=== PATIENT | male | born 1950 | race Caucasian/White ===

== ENCOUNTER 2020-08-16 19:05 | Emergency (ER) | payer MEDICARE, SELFPAY ==
[2020-08-16] VITALS (19 sets, daily range): BP systolic 156–176; BP diastolic 89–111; PULSE 80–97; RESP 13–23; TEMP 36.6; O2SAT 93–99; BMI 34.9
--- NOTE | 2020-08-16 19:39 | XRR_ITS ---
PROCEDURE INFORMATION: Exam: XR Chest, 1 View Exam date and time: 08/16/2020 7:44 PM Age: 70 years old Clinical indication: Chest pain; Type not specified; Patient HX: Chest pressure for 2 hours; Additional info: Cp TECHNIQUE: Imaging protocol: XR of the chest Views: 1 view. COMPARISON: No relevant prior studies available. FINDINGS: Lungs: Lungs are well aerated without a focal area of consolidation. Pleural spaces: Unremarkable. No pleural effusion. No pneumothorax. Heart/Mediastinum: The cardiac silhouette appears enlarged, some of which is magnification related to the AP projection. Bones/joints: Unremarkable. XR/XR chest 1V portable 40901 IMPRESSION: Lungs are well aerated without a focal area of consolidation.
--- NOTE | 2020-08-16 19:45 | W.ED.CHESTPA ---
HPI - Chest Pain General: Chief Complaint: Chest Pain Stated Complaint: heart palpitations Time Seen by Provider: 08/16/20 19:20 History of Present Illness: HPI narrative: Patient is a 70-year-old male with past medical history hypertension who comes to the ER for about 2 hours of mid to lower chest pressure. He said it comes and goes and he had associated occasional palpitations with this pressure. He does have the pressure in the ER right now. He took a baby aspirin this morning and 2 full-strength aspirins at home during the day. No previous cardiac history. MD complaint: chest pain Timing of current episode: episodic Prior episodes: No Onset: during rest and during exertion Pain location: substernal Pain radiation: none Severity: moderate Quality: heaviness Relieving factors: nothing Exacerbating factors: nothing Associated symptoms: Reports no associated symptoms; Deny abdominal pain, dyspnea or palpitations Review of Systems General: Reports: 10 or more systems reviewed and unremarkable except in HPI and below Const: Denies: fatigue Eyes: Denies: change in vision, blurry vision or eye redness ENMT: Denies: throat pain, swelling of lips/tongue, ear or mastoid pain or nasal congestion Card: Reports: chest pain; Denies: palpitations, irregular heart rhythm, edema, dyspnea on exertion or orthopnea Resp: Denies: dyspnea, productive cough or non-productive cough GI: Denies: abdominal pain, diarrhea or GI cramping : Denies: flank pain, urinary frequency or urinary urgency Musc: Denies: neck pain, back pain, extremity pain, joint pain, joint redness, limited range of motion or muscle weakness Skin/Breast: Denies: rash, pruritus, erythema, skin pain or skin tenderness Neuro: Denies: headache(s), numbness in extremities, weakness in extremities, sensory changes, difficulty walking, dizziness, confusion or Slurred speech present Psych: Denies: anxiety or depression Endo: Denies: polyuria All/Imm: Denies: urticaria, throat swelling or tongue swelling PFSH ED PFSH: Family History Mother Cancer Father Cancer Social History Smoking and tobacco status: never smoked Alcohol intake: never Adopted: No Caregiver/support person: No Lives independently: No Household members: spouse Marital status: Current occupational status: retired History of recent travel: No Sexually active: Yes Current gender identity: Male Physical Exam Const: COMMON NORMALS: no acute distress, average body habitus, patient oriented x3, no limitations, healthy appearing, alert and well nourished GENERAL APPEARANCE: cooperative, comfortable, well kempt and well developed ORIENTATION/CONSCIOUSNESS: Yes awake, Yes oriented to person, Yes oriented to place and Yes oriented to time HENMT: COMMON NORMALS: normocephalic, external ears normal and Normal external nose present HEAD & SCALP: normal to inspection and normocephalic NOSE: Normal external nose present EXTERNAL EAR: Yes external ears normal MOUTH: Normal oral and palatal mucosa present THROAT: posterior oropharynx normal Eye: COMMON NORMALS: Equal, round and reactive pupils present and EOMs intact bilaterally GENERAL EYE: appearance normal, both eyes and all related structures PUPIL: Yes Equal, round and reactive pupils present Neck/C-Spine: COMMON NORMALS: full ROM, no lymphadenopathy, no meningeal signs and no JVD GENERAL: Yes normal visual inspection Lymph: LYMPHATIC: no lymphadenopathy noted Chest: COMMONS NORMALS: normal inspection of the chest and normal palpation of entire chest wall Resp: COMMON NORMALS: normal respiratory effort, No retractions, No use of accessory muscles, clear to auscultation bilaterally and percussion normal EFFORT & INSPECTION: Yes able to speak in complete sentences AUSCULTATION: clear to auscultation bilaterally PERCUSSION: percussion normal Cardio: COMMON NORMALS: no JVD, regular rate, regular rhythm, S1 normal heart sound present, S2 normal heart sound present and Peripheral pulses 2+ throughout RATE: regular rate RHYTHM: regular rhythm HEART SOUNDS: S1 normal heart sound present and S2 normal heart sound present PERIPHERAL PULSES: Peripheral pulses 2+ throughout GI: COMMON NORMALS: Normal to inspection, nondistended, normoactive bowel sounds present, Soft to palpation, non-tender and no masses INSPECTION: Yes normal to inspection PALPATION: Yes Soft to palpation OTHER: Mild epigastric tenderness just under his rib cage. : COMMON NORMALS: Yes no CVA tenderness BLADDER/KIDNEY EXAM: Yes no CVA tenderness Back/Pelvis: COMMON NORMALS: no CVA tenderness, thoracic and lumbar spine normal to inspection, no thoracic nor lumbar tenderness and thoraco-lumbar ROM normal Extremity: COMMON NORMALS: normal to inspection, full ROM, capillary refill normal, no joint enlargement and no pedal edema GENERAL: Yes normal exam except as noted Neuro: COMMON NORMALS: patient oriented x3, CN's II-XII intact bilaterally, moves all extremities, no focal motor deficits, no sensory deficits noted and gait normal SENSORIUM/ORIENTATION: Yes alert, Yes oriented to person, Yes oriented to place and Yes oriented to time MENINGEAL SIGNS: Yes no meningeal signs Psych: COMMON NORMALS: mental status grossly normal, Normal thought process present, cooperative, normal affect and speech normal APPEARANCE: Yes well kempt ATTITUDE: Yes calm SPEECH: Yes normal speech THOUGHT PROCESS: Normal thought process present Skin: COMMON NORMALS: no rashes or lesions noted GENERAL SKIN EXAM: no rashes or lesions noted Course Vital Signs: Vital signs: Vital Signs Temperature 97.9 F 08/16/20 19:15 Pulse Rate 79 08/17/20 00:00 Respiratory Rate 11 L 08/17/20 00:00 Blood Pressure 170/96 08/17/20 00:00 Pulse Oximetry 97 08/17/20 00:00 MDM - Chest Pain MDM Narrative: Medical decision making narrative: The patient came in with chest pain that is atypical. GI cocktail nor nitro helped. He had 2 - troponins and 2 normal EKGs. Stable for discharge. Also he has a slight acute kidney injury. I recommended drinking lots of fluids and having this rechecked at primary care physician's office next week. If he fails to do so his kidneys could worsen and possibly be on dialysis. I placed a case management referral to help him get an appointment with cardiology for follow-up of his chest pain as well. He is to return to the ER with worsening symptoms. Lab Data: Labs: Lab Results 08/16/20 08/16/20 08/16/20 Range/Units 13:50 19:50 19:50 WBC 8.1 (4.0-10.0) 10^3/ uL RBC 3.96 L (4.1-5.3) 10^6/u L Hgb 12.7 (11.7-16.6) g/dL Hct 39.2 L (42.0-52.0) % MCV 99.0 H (80-94) fL MCH 32.1 (28.0-34.0) pg MCHC 32.4 (30.0-36.0) g/dL RDW 12.5 (12.1-15.1) % Plt Count 257 (130-400) 10^3/c mm MPV 10.1 (7.4-10.4) fL Neut % (Auto) 59.6 % Lymph % (Auto) 24.0 % Webster % (Auto) 10.9 % Eos % (Auto) 4.7 % Baso % (Auto) 0.6 % Neut # (Auto) 4.80 (1.8-7.7) 10^3/u L Lymph # (Auto) 1.9 (0.8-4.8) 10^3/u L Webster # (Auto) 0.9 (0.2-0.9) 10^3/u L Eos # (Auto) 0.4 (0.0-0.8) 10^3/u L Baso # (Auto) 0.1 (0.0-0.1) 10^3/u L Nucleated RBC % (a uto) 0 % Nucleated RBCs # 0.0 /100WBC D-Dimer (0-0.59) ug/mIFE U Sodium 139 (136-145) mmol/L Potassium 4.1 (3.5-5.1) mmol/L Chloride 102 (98-107) mmol/L Carbon Dioxide 25 (22-29) mmol/L Anion Gap 16.1 (5-19) BUN 21 (8-23) mg/dL Creatinine 1.4 H (0.7-1.2) mg/dL GFR Calculation Not Reportable Glucose 96 (65-115) mg/dL Calculated Osmolal ity 291 (285-295) mOsm/k g Calcium 9.1 (8.5-10.5) mg/dL Total Bilirubin 0.2 (0.15-1.2) mg/dL AST 15 (0-40) U/L ALT 16 (0-41) U/L Alkaline Phosphata se 71 (40-130) IU/L Troponin T Baselin e (0-15) ng/L Troponin T 120 Min igiugig (0-15) ng/L Delta Troponin T (0-10) ABS# NT-Pro-B Natriuret Pep 127 H (0-125) pg/mL Total Protein 7.4 (6.6-8.7) g/dL Albumin 4.5 (3.5-5.2) g/dL Globulin 2.9 (1.3-4.6) g/dL Urine Color (Yellow) Urine Appearance (CLEAR) Urine pH (5-7) Ur Specific Gravit y (1.005-1.030) Urine Protein (Negative) Urine Glucose (UA) (Normal) Urine Ketones (Negative) Urine Blood (Negative) Urine Nitrate (Negative) Urine Bilirubin (Negative) Urine Urobilinogen (Negative) mg/dL Ur Leukocyte Edwina ase (Negative) 08/16/20 08/16/20 08/16/20 Range/Units 19:50 20:40 22:13 WBC (4.0-10.0) 10^3/ uL RBC (4.1-5.3) 10^6/u L Hgb (11.7-16.6) g/dL Hct (42.0-52.0) % MCV (80-94) fL MCH (28.0-34.0) pg MCHC (30.0-36.0) g/dL RDW (12.1-15.1) % Plt Count (130-400) 10^3/c mm MPV (7.4-10.4) fL Neut % (Auto) % Lymph % (Auto) % Webster % (Auto) % Eos % (Auto) % Baso % (Auto) % Neut # (Auto) (1.8-7.7) 10^3/u L Lymph # (Auto) (0.8-4.8) 10^3/u L Webster # (Auto) (0.2-0.9) 10^3/u L Eos # (Auto) (0.0-0.8) 10^3/u L Baso # (Auto) (0.0-0.1) 10^3/u L Nucleated RBC % (a uto) % Nucleated RBCs # /100WBC D-Dimer (0-0.59) ug/mIFE U Sodium (136-145) mmol/L Potassium (3.5-5.1) mmol/L Chloride (98-107) mmol/L Carbon Dioxide (22-29) mmol/L Anion Gap (5-19) BUN (8-23) mg/dL Creatinine (0.7-1.2) mg/dL GFR Calculation Glucose (65-115) mg/dL Calculated Osmolal ity (285-295) mOsm/k g Calcium (8.5-10.5) mg/dL Total Bilirubin (0.15-1.2) mg/dL AST (0-40) U/L ALT (0-41) U/L Alkaline Phosphata se (40-130) IU/L Troponin T Baselin e 9 (0-15) ng/L Troponin T 120 Min igiugig 10.14 (0-15) ng/L Delta Troponin T 1.14 (0-10) ABS# NT-Pro-B Natriuret Pep (0-125) pg/mL Total Protein (6.6-8.7) g/dL Albumin (3.5-5.2) g/dL Globulin (1.3-4.6) g/dL Urine Color Yellow (Yellow) Urine Appearance Clear (CLEAR) Urine pH 6 (5-7) Ur Specific Gravit y 1.015 (1.005-1.030) Urine Protein Neg (Negative) Urine Glucose (UA) Norm (Normal) Urine Ketones Negative (Negative) Urine Blood Neg (Negative) Urine Nitrate Negative (Negative) Urine Bilirubin Neg (Negative) Urine Urobilinogen Norm (Negative) mg/dL Ur Leukocyte Edwina ase Negative (Negative) 08/16/20 Range/Units 22:13 WBC (4.0-10.0) 10^3/ uL RBC (4.1-5.3) 10^6/u L Hgb (11.7-16.6) g/dL Hct (42.0-52.0) % MCV (80-94) fL MCH (28.0-34.0) pg MCHC (30.0-36.0) g/dL RDW (12.1-15.1) % Plt Count (130-400) 10^3/c mm MPV (7.4-10.4) fL Neut % (Auto) % Lymph % (Auto) % Webster % (Auto) % Eos % (Auto) % Baso % (Auto) % Neut # (Auto) (1.8-7.7) 10^3/u L Lymph # (Auto) (0.8-4.8) 10^3/u L Webster # (Auto) (0.2-0.9) 10^3/u L Eos # (Auto) (0.0-0.8) 10^3/u L Baso # (Auto) (0.0-0.1) 10^3/u L Nucleated RBC % (a uto) % Nucleated RBCs # /100WBC D-Dimer 0.41 (0-0.59) ug/mIFE U Sodium (136-145) mmol/L Potassium (3.5-5.1) mmol/L Chloride (98-107) mmol/L Carbon Dioxide (22-29) mmol/L Anion Gap (5-19) BUN (8-23) mg/dL Creatinine (0.7-1.2) mg/dL GFR Calculation Glucose (65-115) mg/dL Calculated Osmolal ity (285-295) mOsm/k g Calcium (8.5-10.5) mg/dL Total Bilirubin (0.15-1.2) mg/dL AST (0-40) U/L ALT (0-41) U/L Alkaline Phosphata se (40-130) IU/L Troponin T Baselin e (0-15) ng/L Troponin T 120 Min igiugig (0-15) ng/L Delta Troponin T (0-10) ABS# NT-Pro-B Natriuret Pep (0-125) pg/mL Total Protein (6.6-8.7) g/dL Albumin (3.5-5.2) g/dL Globulin (1.3-4.6) g/dL Urine Color (Yellow) Urine Appearance (CLEAR) Urine pH (5-7) Ur Specific Gravit y (1.005-1.030) Urine Protein (Negative) Urine Glucose (UA) (Normal) Urine Ketones (Negative) Urine Blood (Negative) Urine Nitrate (Negative) Urine Bilirubin (Negative) Urine Urobilinogen (Negative) mg/dL Ur Leukocyte Edwina ase (Negative) Discharge Plan Discharge Patient Disposition: Home Clinical Impression: Atypical chest pain Condition: Stable Prescriptions: No Action multivitamin Tablet 1 tab PO DAILY RF: 0 diltiazem HCl 60 mg capsule,extended release 12 hr 60 mg PO BID 90 Days Qty: 180 RF: 4 lisinopril 20 mg tablet 20 mg PO DAILY Qty: 90 RF: 4 omeprazole 40 mg capsule,delayed release(DR/EC) 40 mg PO DAILY Qty: 90 RF: 4 Discharge Orders: Discharge ED (Routine); Ordered 08/17/20 Ordered By: Pee Coelho Referrals: Mike Low FNP [Primary Care Provider] - Discharge Diet: Advance as tolerated Discharge Activity: Resume usual activity Patient Instructions: Chest Pain (ED), Opioid Safety Activity Restrictions/Additional Instructions: You have chest pain of unclear cause. It is possible your heart although you are not currently having a heart attack. I have placed a case management referral to help you get a follow-up with a parole or probation officer. Please follow-up with your primary care doctor in a few days to monitor your symptoms. Return to the ER with worsening symptoms. Coding Level of Care Code ED Commercial Collector for Lyndsey Fwd Exam Comprehensive
[2020-08-16] MEDS: lidocaine 2% viscous 15 ML, aluminum-mag hydrox-simethicon 30 ML, sucralfate oral liq 1 GM PO (20:00)
[2020-08-16] MEDS: nitroglycerin 0.4 mg sublingual Tablet SUBLINGUAL (20:02)
[2020-08-16 20:06] LABS: Basophils # 0.1 10^3/uL (0.0-0.1); Basophils % 0.6 %; Eosinophils # 0.4 10^3/uL (0.0-0.8); Eosinophils % 4.7 %; Hematocrit 39.2 % (42.0-52.0); Hemoglobin 12.7 g/dL (11.7-16.6); Lymphocytes # 1.9 10^3/uL (0.8-4.8); Mean Corpuscular HGB Conc 32.4 g/dL (30.0-36.0); Mean Corpuscular Hemoglobin 32.1 pg (28.0-34.0); Mean Platelet Volume 10.1 fL (7.4-10.4); Monocytes # 0.9 10^3/uL (0.2-0.9); Monocytes % 10.9 %; Neutrophils % 59.6 %; Nucleated Red Blood Cells % 0 %; Platelet Count 257 10^3/cmm (130-400); Red Blood Count 3.96 10^6/uL (4.1-5.3); Red Cell Distribution Width 12.5 % (12.1-15.1); White Blood Count 8.1 10^3/uL (4.0-10.0)
[2020-08-16 20:32] LABS: Troponin(5th) Baseline 9 ng/L (0-15)
[2020-08-16 20:37] LABS: Alanine Aminotransferase 16 U/L (0-41); Albumin Level 4.5 g/dL (3.5-5.2); Alkaline Phosphatase 71 IU/L (40-130); Aspartate Amino Transferase 15 U/L (0-40); Blood Urea Nitrogen 21 mg/dL (8-23); Calcium 9.1 mg/dL (8.5-10.5); Carbon Dioxide 25 mmol/L (22-29); Chloride 102 mmol/L (98-107); Globulin 2.9 g/dL (1.3-4.6); Glucose 96 mg/dL (65-115); NT Pro B Type Natriuretic Pept 127 pg/mL (0-125); Osmolality Calculated 291 mOsm/kg (285-295); Sodium 139 mmol/L (136-145); Total Bilirubin 0.2 mg/dL (0.15-1.2); Total Protein 7.4 g/dL (6.6-8.7)
[2020-08-16 20:40] LABS: Anion Gap 16.1 (5-19)
[2020-08-16 20:41] LABS: Potassium 4.1 mmol/L (3.5-5.1)
[2020-08-16 20:45] LABS: Add Urine Microscopic? NO
[2020-08-16 21:02] LABS: Specific Gravity, Urine 1.015 (1.005-1.030); Urine Appearance Clear (CLEAR); Urine Color Yellow (Yellow); pH Urine 6 (5-7)
[2020-08-16 21:03] LABS: Bilirubin Urine Neg (Negative); Blood Urine Neg (Negative); Glucose Urine UA Norm (Normal); Ketones Urine Negative (Negative); Leukocyte Esterase Urine Negative (Negative); Nitrate Urine Negative (Negative); Protein Urine Neg (Negative); Urobilinogen Urine Norm (Negative)
--- NOTE | 2020-08-16 21:39 | ECG_ITS ---
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 Measurements Intervals [place] Rate: 83 P: 59 WY: 193 QRS: 1 QRSD: 104 T: 23 QT: 376 QTc: 443 Interpretive Statements SINUS RHYTHM INCOMPLETE RIGHT BUNDLE BRANCH BLOCK [90+ ms QRS DURATION, TERMINAL R IN V1/V2, 40+ ms S IN I/aVL/V4/V5/V6] No previous ECG available for comparison Electronically Signed On 08-17-2020 16:10:51 PSYCH NURSE by Christy Rogers M.D. [id number]
--- NOTE | 2020-08-16 21:55 | PC.NURSE ---
EKG done at 2152 and shown to ER doctor
[2020-08-16 22:34] LABS: D Dimer 0.41 ug/mIFEU (0-0.59)
[2020-08-16 22:42] LABS: Troponin 5 2HR 10.14 ng/L (0-15); Troponin 5 2HR Delta 1.14 ABS# (0-10)
[2020-08-17] VITALS: BP 170/96; PULSE 79; RESP 11; O2SAT 97
[2020-08-17 00:15] VITALS: BP 168/106; PULSE 78; RESP 15; O2SAT 96
[2020-08-17 00:30] VITALS: BP 168/106
--- NOTE | 2020-08-20 10:07 | DCPLANNER ---
global regulatory affairs manager had message to schedule a follow up appointment for patient with [facility]. global regulatory affairs manager called heart [facility], spoke with Brook, gave clinic patients information. A follow up appointment was scheduled for Thursday, September 03, 2020 at 12:[address] Cadena. global regulatory affairs manager called phone number [phone], unable to speak with patient at this time, a voicemail was left for patient with appointment information
--- NOTE | 2020-09-13 15:10 | DCPLANNER ---
Patient had a follow up appointment scheduled for 09.03.[address] King at [facility] - patient did attend appointment.
== END 2020-08-17 00:32 | disposition home or self-care (01) ==
PROVIDERS: Emergency Provider Family Medicine; PCP Nurse Practitioner Family
DX: R07.89 Other chest pain (principal)
CPT/HCPCS: 71045; 80053; 81003; 83880; 84484; 85025; 85378; 93005; 99284

== ENCOUNTER → 2020-09-26 09:37 | Outpatient (BNVA) | payer MEDICARE, SELFPAY | PROVIDERS: PCP Registered Nurse; Visit Provider Internal Medicine | DX: R07.9 Chest pain, unspecified (principal); Z20.822 Contact with and (suspected) exposure to COVID-19 | CPT/HCPCS: 80048; 85025; 85610; 87635 ==

== ENCOUNTER 2020-09-28 08:18 | Outpatient (CLI) | payer MEDICARE, SELFPAY ==
--- NOTE | 2020-09-28 08:45 | USCV_ITS ---
Nino Mg Age: 70 Gender: M : 1950 Exam Date: 09/28/2020 08:56 Ordering Phys: Lars Cadena M.D ([email or web address]) Technologist: William Espino Exam Location: [facility] [place] [facility] [place] Indication: CAD BP: 148 / 76 HR: 73 Rhythm: Sinus Technical Quality: Fair MEASUREMENTS (Male / Female) Normal Values 2D ECHO LV Diastolic Diameter PLAX 4.7 cm 4.2 - 5.9 / 3.9 - 5.3 cm LV Systolic Diameter PLAX 3.3 cm IVS Diastolic Thickness 1.3 cm 0.6 - 1.0 / 0.6 - 0.9 cm IVS Systolic Thickness 1.5 cm LVPW Diastolic Thickness 1.0 cm 0.6 - 1.0 / 0.6 - 0.9 cm LVPW Systolic Thickness 1.4 cm LVOT Diameter 2.2 cm LV Ejection Fraction 2D Teich 56.0 % LV Ejection Fraction MOD 2C 58.6 % LV Ejection Fraction 2C AL 58.7 % LA Diameter 3.8 cm LA Width 4.1 cm LA Height 5.8 cm RA Width 3.5 cm RA Height 4.9 cm M-MODE LV Diastolic Diameter MM 6.4 cm 4.2 - 5.9 / 3.9 - 5.3 cm LV Systolic Diameter MM 4.7 cm LV Ejection Fraction MM Teich 51.4 % IVS Diastolic Thickness MM 1.2 cm 0.6 - 1.0 / 0.6 - 0.9 cm IVS Systolic Thickness MM 1.7 cm LVPW Diastolic Thickness MM 1.5 cm 0.6 - 1.0 / 0.6 - 0.9 cm LVPW Systolic Thickness MM 1.8 cm RV Diastolic Diameter MM 2.1 cm Aortic Annulus Diameter 4.4 cm LA Ao Ratio MM 0.9 MV E Point Septal Separation 0.8 cm DOPPLER AV Peak Velocity 129.0 cm/s LVOT Peak Velocity 94.0 cm/s AV Area Cont Eq vti 3.1 cm squared AV Area Cont Eq pk 2.7 cm squared MV Area PHT 5.0 cm squared Mitral E to A Ratio 0.8 MV E' Velocity 40.0 cm/s Mitral E to MV E' Ratio 6.5 Mitral E to LV E' Lateral Ratio 7.2 Mitral E to LV E' Septal Ratio 5.9 TR Peak Velocity 114.0 cm/s TR Peak Gradient 5.2 mmHg TV Peak E Velocity 78.0 cm/s Right Atrial Pressure 3.0 mmHg Pulmonary Artery Systolic Pressu 8.2 mmHg RV Acceleration Time 0.2 s FINDINGS Left Ventricle Normal left ventricular size. LV systolic function is normal with EF of 55-60%.No regional wall motion abnormalities. Grade 1 diastolic dysfunction Right Ventricle The right ventricle is normal in size and function. Right Atrium The right atrium is normal in size. Left Atrium The left atrium is normal in size. Mitral Valve Structurally normal mitral valve without significant stenosis or prolapse. There is trace mitral regurgitation. Aortic Valve Structurally normal aortic valve without significant sclerosis or stenosis. There is no aortic regurgitation. Tricuspid Valve Structurally normal tricuspid valve without significant stenosis or regurgitation. Insufficient TR jet to calculate RVSP Pulmonic Valve Structurally normal pulmonic valve without significant stenosis. There is no pulmonic regurgitation. Pericardium Normal pericardium without effusion. Aorta Mildly dilated ascending aorta CONCLUSIONS LV systolic function is normal with EF of 55-60% Grade 1 diastolic dysfunction Trace mitral regurgitation Mildly dilated ascending aorta No comparison studies area available Lars Cadena MD (Electronically Signed) Final Date: 14 October 2020 13:00 S
== END 2020-09-28 08:19 | disposition home or self-care (01) ==
PROVIDERS: PCP Registered Nurse; Visit Provider Internal Medicine
DX: R07.9 Chest pain, unspecified (principal)
CPT/HCPCS: 93306

== ENCOUNTER 2020-10-01 11:31 | Observation (INO) | payer MEDICARE, SELFPAY ==
[2020-10-01] VITALS (14 sets, daily range): BP systolic 98–133; BP diastolic 57–76; PULSE 64–85; RESP 11–26; TEMP 36.6; O2SAT 98; BMI 35.5
--- NOTE | 2020-10-01 09:31 | XACV_ITS ---
Ht: 170 cm Wt: 103 kg BSA: 2.25 m2 Gender: Male : 1950 Any Known Allergies: No known allergies Exam Priority: Routine Procedure(s): Procedure Description: Diagnostic procedure Procedure Description: Coronary Angiography Procedure Description: Pressure Wire Diagnostic Cath Status: Elective Diagnostic Findings * LM has minor luminal irregularities. * CX has luminal irregularities. * RCA has no significant stenosis. * Proximal Left Anterior Descending Coronary Artery: moderate 40% stenosis, ESTEBAN: 3 flow. * Coronary angiography shows right dominance. Interventional Findings * Procedure detail: We engaged left main artery using XB 3.5 guide catheter. IV heparin was used to maintain an ACT above 250 seconds. After zeroing and equalization, we performed FFR of proximal LAD stenosis which was nonischemic with a value of 0.85. At this time we removed the pressure wire and performed the final angiogram. Guide catheter was removed. Access sheath was removed and TR band applied. Patient left the laborer tanbark in a stable condition. Conclusions 1. There is moderate proximal LAD stenosis. FFR is non ischemic with a value of 0.85. Recommendations * Chest pain could be related to microvascular dysfunction. * Can consider isosorbide mononitrate if chest pain continues. Interventional RX Recommendation: medical therapy and/or counseling Diagnostic RX Recommendation: medical therapy and/or counseling Anticoagulation: Heparin Pressures Phase:Rest AO : 145 / 83 ( 105 ) @ 6:03:00 AM Clinical Evaluation EBL: 5mL-10mL Procedural Details Procedure Consent Obtained. Pre-Procedure Time Out. Identified patient by full name and date of as verbalized by the patient/guarantor. Does the consent match the physician's order: Yes. Accurate & Complete Informed Consent: Yes. Inpatient/Outpatient History & Physical on Chart: Yes. If H&P is completed, is and addenduem needed: No; If yes, is the addendum complete: N/A. Visualize and Verify Site with Patient/Guarantor: N/A. Relevant Radiology Images available: N/A. Pre-op teaching completed and patient verbalized understanding. The risks, benefits, and alternatives of sedation and/or procedure were discussed by physician. The patient agrees to continue. Procedure started. [facility] Clinical Fraility Score: 3: Managing Well. 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 Chest Pain Symptom Assessment: Typical Angina Symptoms. Cardiovascular Instability: No. Correct patient, site and procedure confirmed by cath team. PERRLA. Strong, equal hand hydrogenation still operator bilaterally. Lungs clear x 5 lobes. IV Site on Arrival: 20 gauge in the left anticubital. IV Fluids: 0.9% NaCl at KVO. 0 mL infused prior to laborer tanbark. Pre Procedural Pulses: bilateral dorsalis pedis was 3+. Pre Procedural Pulses: bilateral posterior tibial was 1+. Pre Procedural Pulses: bilateral radial was 3+. Oxygen started at 2liters/min via nasal canula. bilateral groins was prepped with chloroprep then draped in the usual sterile fashion. right radial was prepped with chloroprep then draped in the usual sterile fashion. Physician notified. Baseline sample Acquired. HR: 75 BPM. Equipment: 6F - Radial. Cardiac Cath Pack. ACIST Manifold Kit Model BT 2000. Heparinized Saline (2 units/mL), 1000 mL bag. Physician arrived. Physician scrubbed in. Immediate Pre-Procedure Time Out. Correct Patient: Yes; Correct Procedure: Yes; Correct Site: Yes; Correct Patient Position: Yes; Correct Supplies: Yes; Dried Flammable Prep: Yes; Blood Products Available: N/A;. Lidocaine 1% infiltrated to the right radial. Arterial access obtained. A 5 barbadian TIG catheter in over wire. Multiple views taken of left coronary artery. Catheter redirected to the RCA. Catheter removed over the exchange wire. A CRD 5F JR4 Diagnostic Catheter was advanced over the wire and used for Right coronary angiography. Multiple views taken of right coronary artery. Catheter removed over the exchange wire. Inventory is CRD 6 FR XB 3.5 GUIDE. 6 barbadian XB 3.5 guide catheter was inserted over the wire. FFR guidewire was advanced through the guide catheter to lesion in the prox LAD. An FFR value of 0.85 was obtained for a lesion located at Prox LAD. Wire out. Guide catheter out. Fractional flow reserve measurements obtained. Physician scrubbed out. A TR Band was successful obtaining hemostatsis at the Right Radial artery insertion site. TR band placed. Hemostasis obtained. Post Procedure: Pulses reassessed and unchanged. PERRLA. Strong, equal hand hydrogenation still operator bilaterally. No VTE prophylaxis required. Medication's Wasted: Lidocaine 1% = 16 mL. Medication's Wasted: Heparin = 3000 units. Medication's Wasted: Nitro = 49.8 mg. Medication's Wasted: Other = adenosine 60 mg. Medication's Wasted: Other = versed 1 mg. Total IV fluids: 50 mL. Contrast type used: Omnipaque 300 mgI/mL, 500 mL bottle. Post-op diagnosis: moderate prox LAD stenosis. Complications: none. Estimated blood loss: 5mL-10mL. Procedure completed. Patient transferred by wheelchair to 1st floor. Vital chart was stopped. Access Site Site: Right Radial artery Sheath Size: 6 Fr Hemostasis Method: TR Band Hemostasis Success: Successful Procedure Medications Start: 10:56 AM Stop: 10:56 AM Medication: Versed Amount: 1 mg Route: I.V. Start: 10:56 AM Stop: 10:56 AM Medication: Fentanyl Amount: 50 mcg Route: I.V. Start: 10:59 AM Stop: 10:59 AM Medication: Versed Amount: 1 mg Route: I.V. Start: 11:00 AM Stop: 11:00 AM Medication: Nitrogylcerin Amount: 200 mcg Route: I.A. Start: 11:01 AM Stop: 11:01 AM Medication: Fentanyl Amount: 50 mcg Route: I.V. Start: 11:02 AM Stop: 11:02 AM Medication: Heparin Amount: 5000 units Route: I.V. Start: 11:04 AM Stop: 11:04 AM Medication: Versed Amount: 1 mg Route: I.V. Start: 11:10 AM Stop: 11:10 AM Medication: Versed Amount: 1 mg Route: I.V. Start: 11:15 AM Stop: 11:15 AM Medication: Heparin Amount: 3000 units Route: I.V. Start: 11:16 AM Stop: 11:16 AM Medication: Versed Amount: 1 mg Route: I.V. I, the attending physician, have reviewed and verified all procedure medications. Yes, all medications given per verbal order History/Risk Factors Hypertension: Yes Dyslipidemia: Yes Peripheral Arterial Disease (PAD): No Myocardial Infarction (SC): No Obesity: No Renal Disease: No Tobacco Use: Never Prior Interventions PCI: No CABG: No Valve Surgery: No Report Signatures Finalized by Lars Cadena MD on 10/14/2020 11:13 PM
[2020-10-01] MEDS: diphenhydrAMINE 50 mg Capsule PO (09:46)
--- NOTE | 2020-10-01 10:46 | W.PM.OPSUD ---
Surgery/Procedure H&P Update DATE OF PROCEDURE: October 01, 2020 DATE H&P PERFORMED: 09/03/20 H&P UPDATE INFORMATION: I have reviewed H&P completed within last 30 days, I have examined patient prior to procedure and No changes to prior documentation PREOP DIAGNOSIS: Worsening angina PRIMARY INDICATION FOR PROCEDURE: Worsening angina PLANNED PROCEDURE: Operation Date: 10/01/20 10:00 Proposed Procedures p left Cardiac Catheterization 37626 [id number](Left) - Lars Cadena M.D Possible percutaenous coronary intervention PATIENT REASSESSED PRIOR TO SEDATION, WITH NO CHANGE NOTED: Yes PHYSICAL EXAM: alert, oriented x 3 and clear to auscultation bilaterally AIRWAY EVAL/ANESTHESIA PLAN: ASA III, Monitored Anesthesia, Local Anesthesia, Risks, benefits & alternatives of sedation and/or procedure discussed and Patient agrees to continue as planned
--- NOTE | 2020-10-01 12:07 | PC.NURSE ---
placed call to Dr. Cadena for diet orders instructions to give patient a cardiac diet he would place more orders for post cath care
--- NOTE | 2020-10-01 15:07 | PC.NURSE ---
patient discharge home self care at this time patient provided with discharge instructions; verbalized understanding of all instructions and follow up appointments. Patient alert oriented and in stable condition upon departure. all belongings and discharge instructions in hand.
== END 2020-10-01 15:15 | disposition home or self-care (01) ==
LOC: CSU 11:32
PROVIDERS: Admitting Provider Internal Medicine; PCP Registered Nurse; Visit Provider Internal Medicine
DX: I25.10 Atherosclerotic heart disease of native coronary artery without angina pectoris (principal); Z79.82 Long term (current) use of aspirin; I10 Essential (primary) hypertension; E78.5 Hyperlipidemia, unspecified
CPT/HCPCS: 36415; 93452; C1769; C1887; C1894; G0378; J0153; J1644; J2250; J3010; J3490; J7030; Q0163; Q9967

== ENCOUNTER 2020-10-08 14:38 | Emergency (ER) | payer MEDICARE, SELFPAY ==
--- NOTE | 2020-10-08 14:58 | XRR_ITS ---
PROCEDURE INFORMATION: Exam: XR Abdomen Exam date and time: 10/08/2020 3:18 PM Age: 70 years old Clinical indication: Abdominal pain; Generalized TECHNIQUE: Imaging protocol: XR of the abdomen. Views: 2 Views. Upright and supine views. COMPARISON: No relevant prior studies available. FINDINGS: Gastrointestinal tract: Normal. No bowel dilation. Intraperitoneal space: Normal. No free air. Organs: Faint densities seen overlying the right and left kidneys suspicious for caliceal stones. Bones/joints: There is a metallic right hip arthroplasty in good position. Otherwise the bones are unremarkable. XR/XR acute abdomen series [id number] IMPRESSION: 1. No acute GI abnormalities. 2. Negative chest examination. 3. Possible caliceal stones in both kidneys. 4. Metallic arthroplasty right hip in good position.
[2020-10-08 15:08] VITALS: BP 147/81; PULSE 77; RESP 18; TEMP 36.9; O2SAT 98; BMI 35.6
[2020-10-08 17:11] LABS: Add Urine Microscopic? NO; Charge for UA Resulting for Rev
[2020-10-08 17:18] LABS: Bilirubin Urine Neg (Negative); Blood Urine Neg (Negative); Glucose Urine UA Norm (Normal); Ketones Urine Negative (Negative); Leukocyte Esterase Urine Negative (Negative); Nitrate Urine Negative (Negative); Protein Urine Neg (Negative); Urine Appearance Clear (CLEAR); Urine Color Straw (Yellow); Urobilinogen Urine Norm (Negative); pH Urine 7 (5-7)
[2020-10-08 17:21] LABS: Basophils % 0.4 %; Eosinophils # 0.1 10^3/uL (0.0-0.8); Hematocrit 37.3 % (42.0-52.0); Hemoglobin 12.7 g/dL (11.7-16.6); Lymphocytes # 1.5 10^3/uL (0.8-4.8); Lymphocytes % 21.9 %; Mean Corpuscular Hemoglobin 32.1 pg (28.0-34.0); Mean Corpuscular Volume 94.2 fL (80-94); Monocytes # 0.8 10^3/uL (0.2-0.9); Monocytes % 10.9 %; Neutrophils # 4.42 10^3/uL (1.8-7.7); Neutrophils % 64.5 %; Nucleated Red Blood Cells % 0 %; Platelet Count 323 10^3/cmm (130-400); Red Blood Count 3.96 10^6/uL (4.1-5.3); Red Cell Distribution Width 11.6 % (12.1-15.1); White Blood Count 6.9 10^3/uL (4.0-10.0)
[2020-10-08 17:50] LABS: Lactic Sepsis W/Reflex 0.8 mmol/L (0.5-2.2)
--- NOTE | 2020-10-08 17:53 | ED_ITS ---
HPI - Abdominal Pain General: Chief Complaint: Abdominal Pain Stated Complaint: believes to have bowl obstruction Time Seen by Provider: 10/08/20 17:37 History of Present Illness: HPI narrative: Patient is a 70-year-old male comes to the ED with abdominal pain and constipation. Patient has a past medical history of hypertension, hyperlipidemia and GERD. His symptoms started approximately 10 days ago. He says he is had decreased appetite for the past 10 days and feels bloated. Approximately 5 days ago he had an episode of nausea and vomiting but that has since resolved. He says that he has had 2 small bowel movements in the past 10 days. His last bowel movement was on October 04 was small. The last couple days he reports not having much of an appetite and feeling full. He says this morning he did wake up and have some dry heaving. Denies any fever, chills, nausea, blood in the stool, diarrhea, UTI symptoms. He also endorses belching more frequently as well. Associated Symptoms: Reports belching, bloating and constipation; Denies chills, diarrhea, dysuria, fever(s), hematochezia, hematuria, nausea and vomiting Review of Systems Const: Reports: change in appetite (Decreased appetite); Denies: fever(s), chills or fatigue Eyes: Denies: change in vision or eye discomfort ENMT: Denies: throat pain, odynophagia, nasal discharge or nasal congestion Card: Denies: chest pain, palpitations, edema, swelling of feet/ankles, dyspnea on exertion or orthopnea Resp: Denies: dyspnea, productive cough or non-productive cough GI: Reports: abdominal pain, constipation, bloating and belching; Denies: nausea, vomiting, diarrhea or hematochezia : Denies: flank pain, difficulty urinating, dysuria or hematuria Musc: Denies: neck pain, back pain or extremity swelling Skin/Breast: Denies: rash or new lesions Neuro: Denies: headache(s), numbness in extremities or weakness in extremities PFS ED PFSH: Medical History Atherosclerosis of coronary artery GERD (gastroesophageal reflux disease) Hyperlipidemia Hypertension Surgical History History of appendectomy History of cataract surgery History of hip replacement History of knee replacement Family History Mother Cancer Father Cancer Social History Smoking and tobacco status: never smoked Alcohol intake: current Alcohol intake frequency: 0-2 Drinks per Day Alcohol type: beer Adopted: No Caregiver/support person: No Lives independently: No Household members: spouse Marital status: Current occupational status: retired History of recent travel: No Sexually active: Yes Current gender identity: Male Physical Exam Const: COMMON NORMALS: no acute distress, patient oriented x3, healthy appearing and alert GENERAL APPEARANCE: cooperative and comfortable HENMT: COMMON NORMALS: normocephalic HEAD & SCALP: normocephalic MOUTH: Normal oral and palatal mucosa present THROAT: posterior oropharynx normal and uvula midline Neck/C-Spine: COMMON NORMALS: supple GENERAL: Yes normal visual inspection Resp: COMMON NORMALS: normal respiratory effort, No retractions, No use of accessory muscles and clear to auscultation bilaterally AUSCULTATION: clear to auscultation bilaterally Cardio: COMMON NORMALS: regular rate, regular rhythm, S1 normal heart sound present, S2 normal heart sound present, No gallops present (Cardio), No clicks present (Cardio), No murmurs present (Cardio) and Peripheral pulses 2+ throughout RATE: regular rate RHYTHM: regular rhythm HEART SOUNDS: S1 normal heart sound present and S2 normal heart sound present PERIPHERAL PULSES: Peripheral pulses 2+ throughout GI: COMMON NORMALS: Soft to palpation and no masses INSPECTION: Yes central obesity AUSCULTATION: Yes Hypoactive bowel sounds present PALPATION: Yes Soft to palpation and Yes Tenderness to palpation present (GI) Details: LUQ : COMMON NORMALS: Yes no CVA tenderness BLADDER/KIDNEY EXAM: Yes no CVA tenderness Back/Pelvis: COMMON NORMALS: no CVA tenderness Extremity: GENERAL: Yes normal exam except as noted and Yes edema (1+ pitting edema lower extremities bilaterally just above the ankles) Neuro: COMMON NORMALS: patient oriented x3 SENSORIUM/ORIENTATION: Yes alert GAIT: Yes Normal gait present Skin: GENERAL SKIN EXAM: dry skin Course Vital Signs: Vital signs: Vital Signs Temperature 98.4 F 10/08/20 15:08 Pulse Rate 77 10/08/20 19:34 Respiratory Rate 22 H 10/08/20 19:34 Blood Pressure 138/72 10/08/20 19:34 Pulse Oximetry 94 10/08/20 19:34 MDM - Abdominal Pain MDM Narrative: Medical decision making narrative: Patient is a 70-year-old male who comes to the ED with abdominal pain and constipation. Patient says he has not had a bowel movement in 4 days and states that in the past 10 days he has had 2 very small bowel movements. Patient endorses feeling a little bloated and is belching more. On exam patient appears nontoxic and in no acute distress or pain. He has some mild tenderness upon palpation of the left upper quadrant of the abdomen. Vitals are stable. CBC, CMP, UA and lipase are unremarkable. Lactic was normal. Acute abdomen x-ray series showed no acute GI abnormalities. CT of abdomen showed no acute abdomen pathology but did note some constipation. Patient diagnosed with constipation and discharged home. Patient says he has some mag citrate and MiraLAX at home. I told him to take the mag citrate and then the MiraLAX as needed to help with bowel movements. I informed him to drink plenty of fluids and stay hydrated and to eat a well-balanced diet with some high fiber foods. Return to ED precautions given. Follow-up with PCP in 7 to 10 days for reevaluation. Patient understood agree with plan. Lab Data: Attestation: I reviewed the patient's lab results. Labs: Lab Results 10/08/20 10/08/20 10/08/20 Range/Units 16:45 16:45 16:45 WBC 6.9 (4.0-10.0) 10^3/ uL RBC 3.96 L (4.1-5.3) 10^6/u L Hgb 12.7 (11.7-16.6) g/dL Hct 37.3 L (42.0-52.0) % MCV 94.2 H (80-94) fL MCH 32.1 (28.0-34.0) pg MCHC 34.0 (30.0-36.0) g/dL RDW 11.6 L (12.1-15.1) % Plt Count 323 (130-400) 10^3/c mm MPV 10.0 (7.4-10.4) fL Neut % (Auto) 64.5 % Lymph % (Auto) 21.9 % [place] % (Auto) 10.9 % Eos % (Auto) 2.0 % Baso % (Auto) 0.4 % Neut # (Auto) 4.42 (1.8-7.7) 10^3/u L Lymph # (Auto) 1.5 (0.8-4.8) 10^3/u L [place] # (Auto) 0.8 (0.2-0.9) 10^3/u L Eos # (Auto) 0.1 (0.0-0.8) 10^3/u L Baso # (Auto) 0.0 (0.0-0.1) 10^3/u L Nucleated RBC % (a uto) 0 % Nucleated RBCs # 0.0 /100WBC Sodium 134 L (136-145) mmol/L Potassium 4.3 (3.5-5.1) mmol/L Chloride 98 (98-107) mmol/L Carbon Dioxide 26 (22-29) mmol/L Anion Gap 14.3 (5-19) BUN 17 (8-23) mg/dL Creatinine 0.9 (0.7-1.2) mg/dL GFR Calculation Not Reportable Glucose 103 (65-115) mg/dL Calculated Osmolal ity 280 L (285-295) mOsm/k g Lactic Acid 0.8 (0.5-2.2) mmol/L Calcium 9.3 (8.5-10.5) mg/dL Total Bilirubin 0.4 (0.15-1.2) mg/dL AST 13 (0-40) U/L ALT 16 (0-41) U/L Alkaline Phosphata se 67 (40-130) IU/L Total Protein 7.3 (6.6-8.7) g/dL Albumin 4.8 (3.5-5.2) g/dL Globulin 2.5 (1.3-4.6) g/dL Lipase 24 (13-60) U/L Urine Color (Yellow) Urine Appearance (CLEAR) Urine pH (5-7) Ur Specific Gravit y (1.005-1.030) Urine Protein (Negative) Urine Glucose (UA) (Normal) Urine Ketones (Negative) Urine Blood (Negative) Urine Nitrate (Negative) Urine Bilirubin (Negative) Urine Urobilinogen (Negative) mg/dL Ur Leukocyte Edwina ase (Negative) 04/12/21 Range/Units 17:05 WBC (4.0-10.0) 10^3/ uL RBC (4.1-5.3) 10^6/u L Hgb (11.7-16.6) g/dL Hct (42.0-52.0) % MCV (80-94) fL MCH (28.0-34.0) pg MCHC (30.0-36.0) g/dL RDW (12.1-15.1) % Plt Count (130-400) 10^3/c mm MPV (7.4-10.4) fL Neut % (Auto) % Lymph % (Auto) % [place] % (Auto) % Eos % (Auto) % Baso % (Auto) % Neut # (Auto) (1.8-7.7) 10^3/u L Lymph # (Auto) (0.8-4.8) 10^3/u L [place] # (Auto) (0.2-0.9) 10^3/u L Eos # (Auto) (0.0-0.8) 10^3/u L Baso # (Auto) (0.0-0.1) 10^3/u L Nucleated RBC % (a uto) % Nucleated RBCs # /100WBC Sodium (136-145) mmol/L Potassium (3.5-5.1) mmol/L Chloride (98-107) mmol/L Carbon Dioxide (22-29) mmol/L Anion Gap (5-19) BUN (8-23) mg/dL Creatinine (0.7-1.2) mg/dL GFR Calculation Glucose (65-115) mg/dL Calculated Osmolal ity (285-295) mOsm/k g Lactic Acid (0.5-2.2) mmol/L Calcium (8.5-10.5) mg/dL Total Bilirubin (0.15-1.2) mg/dL AST (0-40) U/L ALT (0-41) U/L Alkaline Phosphata se (40-130) IU/L Total Protein (6.6-8.7) g/dL Albumin (3.5-5.2) g/dL Globulin (1.3-4.6) g/dL Lipase (13-60) U/L Urine Color Straw (Yellow) Urine Appearance Clear (CLEAR) Urine pH 7 (5-7) Ur Specific Gravit y 1.010 (1.005-1.030) Urine Protein Neg (Negative) Urine Glucose (UA) Norm (Normal) Urine Ketones Negative (Negative) Urine Blood Neg (Negative) Urine Nitrate Negative (Negative) Urine Bilirubin Neg (Negative) Urine Urobilinogen Norm (Negative) mg/dL Ur Leukocyte Edwina ase Negative (Negative) Imaging Data ^: Other Xray: Attestation: I personally reviewed and interpreted this imaging study as follows: Radiologist's impression: [facility] [address] [place] [id number] XRay Report Signed Patient: Nino Mg Jr Unit #: [id number] : 1950 Age/Sex: 70 / M ADM Date: 10/08/20 Loc: ER Room/Bed: Attending Dr: Ordering Provider/Ordering MD: Chasity Hurtado Date of Service: 10/08/20 Procedure(s): XR acute abdomen series [id number] Accession Number(s): [id number] Report Number: [id number] PROCEDURE INFORMATION: Exam: XR Abdomen Exam date and time: 10/08/2020 3:18 PM Age: 70 years old Clinical indication: Abdominal pain; Generalized TECHNIQUE: Imaging protocol: XR of the abdomen. Views: 2 Views. Upright and supine views. COMPARISON: No relevant prior studies available. FINDINGS: Gastrointestinal tract: Normal. No bowel dilation. Intraperitoneal space: Normal. No free air. Organs: Faint densities seen overlying the right and left kidneys suspicious for caliceal stones. Bones/joints: There is a metallic right hip arthroplasty in good position. Otherwise the bones are unremarkable. XR/XR acute abdomen series [id number] IMPRESSION: 1. No acute GI abnormalities. 2. Negative chest examination. 3. Possible caliceal stones in both kidneys. 4. Metallic arthroplasty right hip in good position. Dictated By: Jerzy Larose Signed By: Jerzy Larose Signed Date/Time: 10/08/20 155 DD/ 155 CT Abd/Pel: Attestation: I personally reviewed and interpreted this imaging study as follows: Radiologist's impression: [facility] [address] [place] [address] CT Scan Report Signed Patient: Nino Mg Jr Unit #: [id number] : 1950 Age/Sex: 70 / M ADM Date: 10/08/20 Loc: ER Room/Bed: Attending Dr: Ordering Provider/Ordering MD: Pepe Plunkett Date of Service: 10/08/20 Procedure(s): CT abdomen pelvis w con* [id number] Accession Number(s): [id number] Report Number: [id number] PROCEDURE INFORMATION: Exam: CT Abdomen And Pelvis With Contrast Exam date and time: 10/08/2020 6:06 PM Age: 70 years old Clinical indication: Constipation; Abdominal pain; Prior surgery; Surgery type: Appy; Additional info: Constipation and luq tenderness TECHNIQUE: Imaging protocol: Computed tomography of the abdomen and pelvis with contrast. Total images: 252 Radiation optimization: All CT scans at this facility use at least one of these dose optimization techniques: automated exposure control; mA and/or kV adjustment per patient size (includes targeted exams where dose is matched to clinical indication); or iterative reconstruction. Contrast material: OMNI 300; Contrast volume: 95 ml; Contrast route: INTRAVENOUS (IV); COMPARISON: CR Hip 2-3v LEFT wwo Pelv* [id number] 03/09/2014 10:43 AM RADIATION DOSE METRICS: Total DLP (mGy-cm): 1720.46 FINDINGS: Lungs: Limited assessment of the lung bases fails to reveal evidence for active cardiopulmonary process. Liver: Small simple hepatic cysts. No visible hepatic mass. Gallbladder and bile ducts: Unremarkable. No calcified stones. No ductal dilation. Pancreas: Partial atrophy and fatty replacement of the pancreas. No visible pancreatic ductal ectasia. Spleen: Normal. No splenomegaly. Adrenal glands: Adrenal glands unremarkable. Kidneys and ureters: Bilateral simple renal cortical cysts the largest off the inferior pole of the right kidney measuring 12.7 cm x 10.4 cm x 10.5 cm. Largest cyst equator left kidney measures 29 mm. No follow-up recommended. No hydronephrosis or perinephric fluid. Rare nonobstructing calyceal nephrolithiasis focus bilaterally the largest on the right measuring 5 mm and on the left 3 mm. No visible ureterolithiasis. Stomach and bowel: Assessment of the hollow viscus fails to reveal evidence of active or acute pathology. Nonobstructed bowel pattern. No visible acute diverticulitis. No visible adynamic or reactive ileus. Heavy fecal residue consistent with constipation. Appendix: Status post appendectomy. Intraperitoneal space: No visible evidence of mesenteric lymphadenitis or active mesenteritis/panniculitis. No visible intraperitoneal ascites or pneumoperitoneum. Vasculature: Coronary artery disease. Portal vein patent. The abdominal aorta is nonaneurysmal. Moderately advanced arterial sclerotic disease. Lymph nodes: No current visible evidence of active mesenteric or retroperitoneal lymphadenopathy. Urinary bladder: Urinary bladder unremarkable. Reproductive: Prostate hypertrophy. Bones/joints: Right total hip prosthesis. No visible evidence of active or acute osseous pathology. Advanced degenerative disease and degenerative disc disease of the spine. Facet arthrosis. Soft tissues: Unremarkable. Other findings: Obesity. CT/CT abdomen pelvis w con* [id number] IMPRESSION: 1. Currently no visible evidence for acute abdominal or pelvic pathologic process. 2. Bilateral nephrolithiasis. 3. Constipation. 4. Bilateral simple renal cortical cysts the largest inferior pole right kidney measuring 12.7 cm x 10.4 cm x 10.5 cm. 5. Other nonurgent, nonemergent, chronic, postoperative, and age related findings as detailed in text above. COMMENTS: Consistent with the [employer]'s Incidental Findings Committee white paper (J Am Earle Radiol 2018): Any incidental renal lesion less than 1 cm or classified as too small to characterize, or any incidental cystic renal lesion characterized as simple-appearing, is likely benign. No follow-up imaging is recommended for these lesions per consensus recommendations based on imaging criteria. Radiation Dose CTDIVOL = (mGy): DLP = 1720.46 (mGy-cm) Dictated By: Raul Farah Signed By: Raul Farah Signed Date/Time: 10/08/201846 DD/ 45 Discharge Plan Discharge Patient Disposition: Home Clinical Impression: Constipation Qualifiers: Constipation type: slow transit constipation Qualified Code(s): K59.01 - Slow transit constipation Condition: Stable Prescriptions: No Action multivitamin Tablet 1 tab PO DAILY RF: 0 omeprazole 40 mg capsule,delayed release(DR/EC) 40 mg PO DAILY Qty: 90 RF: 4 amlodipine 10 mg tablet 10 mg PO DAILY Qty: 90 RF: 3 diltiazem HCl 120 mg capsule,extended release 24 hr 120 mg PO BID 30 Days Qty: 180 RF: 3 lisinopril 40 mg tablet 40 mg PO DAILY Qty: 90 RF: 0 aspirin [Aspirin Low Dose] 81 mg tablet,delayed release (DR/EC) 81 mg PO DAILY RF: 0 atorvastatin 10 mg tablet 10 mg PO DAILY Qty: 90 RF: 0 Discharge Orders: Discharge ED (Routine); Ordered 10/08/20 Ordered By: Pepe Plunkett Referrals: Varun Leach, 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 Take mag citrate at home to help with bowel movement. You can also take [id number] MiraLAX and [id number] docusate stool softeners per bottle instructions to help with bowel movements. Make sure you drink plenty of water and stay hydrated. Continue taking all home medications as prescribed. Return to the ER or your medical provider if condition worsens. Please read and understand discharge instructions. If any questions, please ask. Coding Level of Care Code ED Certified Respiratory Therapist for Lyndsey Fwd Exam Comprehensive
[2020-10-08 17:55] LABS: Alanine Aminotransferase 16 U/L (0-41); Albumin Level 4.8 g/dL (3.5-5.2); Alkaline Phosphatase 67 IU/L (40-130); Anion Gap 14.3 (5-19); Aspartate Amino Transferase 13 U/L (0-40); Blood Urea Nitrogen 17 mg/dL (8-23); Calcium 9.3 mg/dL (8.5-10.5); Carbon Dioxide 26 mmol/L (22-29); Chloride 98 mmol/L (98-107); Globulin 2.5 g/dL (1.3-4.6); Glucose 103 mg/dL (65-115); Lipase 24 U/L (13-60); Osmolality Calculated 280 mOsm/kg (285-295); Potassium 4.3 mmol/L (3.5-5.1); Sodium 134 mmol/L (136-145); Total Bilirubin 0.4 mg/dL (0.15-1.2); Total Protein 7.3 g/dL (6.6-8.7)
[2020-10-08 18:03] VITALS: BP 138/85; PULSE 86; RESP 19; O2SAT 96
--- NOTE | 2020-10-08 18:04 | CTR_ITS ---
PROCEDURE INFORMATION: Exam: CT Abdomen And Pelvis With Contrast Exam date and time: 10/08/2020 6:06 PM Age: 70 years old Clinical indication: Constipation; Abdominal pain; Prior surgery; Surgery type: Appy; Additional info: Constipation and luq tenderness TECHNIQUE: Imaging protocol: Computed tomography of the abdomen and pelvis with contrast. Total images: 252 Radiation optimization: All CT scans at this facility use at least one of these dose optimization techniques: automated exposure control; mA and/or kV adjustment per patient size (includes targeted exams where dose is matched to clinical indication); or iterative reconstruction. Contrast material: OMNI 300; Contrast volume: 95 ml; Contrast route: INTRAVENOUS (IV); COMPARISON: CR Hip 2-3v LEFT wwo Pelv* [id number] 03/09/2014 10:43 AM RADIATION DOSE METRICS: Total DLP (mGy-cm): 1720.46 FINDINGS: Lungs: Limited assessment of the lung bases fails to reveal evidence for active cardiopulmonary process. Liver: Small simple hepatic cysts. No visible hepatic mass. Gallbladder and bile ducts: Unremarkable. No calcified stones. No ductal dilation. Pancreas: Partial atrophy and fatty replacement of the pancreas. No visible pancreatic ductal ectasia. Spleen: Normal. No splenomegaly. Adrenal glands: Adrenal glands unremarkable. Kidneys and ureters: Bilateral simple renal cortical cysts the largest off the inferior pole of the right kidney measuring 12.7 cm x 10.4 cm x 10.5 cm. Largest cyst equator left kidney measures 29 mm. No follow-up recommended. No hydronephrosis or perinephric fluid. Rare nonobstructing calyceal nephrolithiasis focus bilaterally the largest on the right measuring 5 mm and on the left 3 mm. No visible ureterolithiasis. Stomach and bowel: Assessment of the hollow viscus fails to reveal evidence of active or acute pathology. Nonobstructed bowel pattern. No visible acute diverticulitis. No visible adynamic or reactive ileus. Heavy fecal residue consistent with constipation. Appendix: Status post appendectomy. Intraperitoneal space: No visible evidence of mesenteric lymphadenitis or active mesenteritis/panniculitis. No visible intraperitoneal ascites or pneumoperitoneum. Vasculature: Coronary artery disease. Portal vein patent. The abdominal aorta is nonaneurysmal. Moderately advanced arterial sclerotic disease. Lymph nodes: No current visible evidence of active mesenteric or retroperitoneal lymphadenopathy. Urinary bladder: Urinary bladder unremarkable. Reproductive: Prostate hypertrophy. Bones/joints: Right total hip prosthesis. No visible evidence of active or acute osseous pathology. Advanced degenerative disease and degenerative disc disease of the spine. Facet arthrosis. Soft tissues: Unremarkable. Other findings: Obesity. CT/CT abdomen pelvis w con* [id number] IMPRESSION: 1. Currently no visible evidence for acute abdominal or pelvic pathologic process. 2. Bilateral nephrolithiasis. 3. Constipation. 4. Bilateral simple renal cortical cysts the largest inferior pole right kidney measuring 12.7 cm x 10.4 cm x 10.5 cm. 5. Other nonurgent, nonemergent, chronic, postoperative, and age related findings as detailed in text above. COMMENTS: Consistent with the [employer]'s Incidental Findings Committee white paper (J Am Earle Radiol 2018): Any incidental renal lesion less than 1 cm or classified as too small to characterize, or any incidental cystic renal lesion characterized as simple-appearing, is likely benign. No follow-up imaging is recommended for these lesions per consensus recommendations based on imaging criteria. Radiation Dose CTDIVOL = (mGy): DLP = 1720.46 (mGy-cm)
[2020-10-08] MEDS: iohexol 300 mg/mL 100 mL Btl IV (18:18)
[2020-10-08 19:34] VITALS: BP 138/72; PULSE 77; RESP 22; O2SAT 94
== END 2020-10-08 19:34 | disposition home or self-care (01) ==
PROVIDERS: Physician Assistant; Emergency Provider Physician Assistant; PCP Registered Nurse
DX: K59.01 Slow transit constipation (principal); Z79.82 Long term (current) use of aspirin; I25.10 Atherosclerotic heart disease of native coronary artery without angina pectoris; E78.5 Hyperlipidemia, unspecified; I10 Essential (primary) hypertension
CPT/HCPCS: 36415; 74022; 74177; 80053; 81003; 83605; 83690; 85025; 99283; Q9967

== ENCOUNTER → 2021-02-26 10:42 | Outpatient (BNVA) | payer MEDICARE, SELFPAY | PROVIDERS: PCP Registered Nurse; Visit Provider Registered Nurse | DX: I10 Essential (primary) hypertension (principal); E78.5 Hyperlipidemia, unspecified | CPT/HCPCS: 80053; 80061; 85025; G0103 ==

== ENCOUNTER 2021-11-06 08:58 | Inpatient (IN) | payer MEDICARE, SELFPAY ==
[2021-11-06] VITALS (10 sets, daily range): BP systolic 101–138; BP diastolic 55–79; PULSE 56–74; RESP 13–18; TEMP 36.5–37.1; O2SAT 94–100; BMI 32.8
--- NOTE | 2021-11-06 09:03 | ECG_ITS ---
[facility] Test Date: 2021-11-06 Pat Name: Nino Mg Department: Room: Gender: Male Reporting Developer: : 1950 Requested By: Ronni Wright Order Number: [id number] Cristopher MD: Thea Galo M.D. Measurements Intervals [place] Rate: 59 P: 37 NE: 211 QRS: 66 QRSD: 146 T: 37 QT: 437 QTc: 434 Interpretive Statements SINUS BRADYCARDIA WITH FIRST DEGREE AV BLOCK INTRAVENTRICULAR CONDUCTION DELAY [130+ ms QRS DURATION] Compared to ECG 11/06/2021 09:03:20 First degree AV block now present Intraventricular conduction delay now present Sinus rhythm no longer present Indeterminate axis no longer present Incomplete right bundle-branch block no longer present Electronically Signed On 11-06-2021 22:35:35 CDT by Thea Galo M.D. [id number]
--- NOTE | 2021-11-06 09:03 | XR_ITS ---
WS: [id number] XR chest 1V portable [id number] REASON FOR EXAM: chest pain FINDINGS: Moderate tortuosity the thoracic aorta with mild dilatation of the ascending thoracic aorta. Normal h eart size. Calcified granulomatous disease in both hemithoraces. No active pulmonary parenchymal or pleural disease. Moderate degenerative spondylosis in the mid and lower thoracic spine. Chest unchanged compared to 2020. XR/XR chest 1V portable [id number] IMPRESSION: Stable chest with no acute abnormality.
[2021-11-06 09:30] LABS: Basophils # 0.1 10^3/uL (0.0-0.1); Basophils % 0.9 %; Eosinophils # 0.5 10^3/uL (0.0-0.8); Eosinophils % 7.9 %; Hematocrit 33.4 % (42.0-52.0); Hemoglobin 11.7 g/dL (11.7-16.6); Lymphocytes # 1.3 10^3/uL (0.8-4.8); Lymphocytes % 23.4 %; Mean Corpuscular Hemoglobin 32.1 pg (28.0-34.0); Mean Corpuscular Volume 91.5 fl (80-94); Mean Platelet Volume 9.4 fL (7.4-10.4); Monocytes # 0.6 10^3/uL (0.2-0.9); Monocytes % 11.2 %; Neutrophils % 56.2 %; Nucleated Red Blood Cells % 0 %; Platelet Count 315 10^3/cmm (130-400); Red Blood Count 3.65 10^6/uL (4.1-5.3); Red Cell Distribution Width 11.9 % (12.1-15.1); White Blood Count 5.7 10^3/uL (4.0-10.0)
--- NOTE | 2021-11-06 09:30 | PC.NURSE ---
threat monitoring analyst placed on patient on arrival to room 15.
--- NOTE | 2021-11-06 09:48 | W.ED.CHESTPA ---
HPI - Chest Pain General: Chief Complaint: Chest Pain Stated Complaint: chest pains/throat tightness Time Seen by Provider: 11/06/21 08:59 Source: patient Mode of arrival: ambulatory Limitations: no limitations History of Present Illness: 71-year-old male presents emergency room complaining intermittent chest pain since 4:00 this morning. He is actually had this for the last couple of weeks. He states he had chest pain last 10 to 15 seconds feels like something squeezing refers to the right lower sternal area he does get some radiation into his neck and back at times. No shortness of breath no diaphoresis is not noticed anything that alleviates or exacerbates his symptoms. He did take a baby aspirin earlier today as well as his diuretics antihypertensives that he takes typically. Patient is not diabetic. He did have an angiogram approximately a year ago that showed noncritical stenosis in the proximal LAD. In the report is listed as moderate with good flow. No intervention was undertaken. MD complaint: chest pain Pertinent past history: coronary artery disease (Nonischemic coronary disease noted on coronary artery catheterization 09/2020 proximal LAD) Onset (ago): week(s) (1) Timing of current episode: episodic Prior episodes: Yes Onset: during rest Pain location: right chest Pain radiation: back and neck Severity: mild Quality: tightness Relieving factors: nothing Exacerbating factors: nothing Associated symptoms: Deny abdominal pain, diaphoresis, dyspnea, fever(s), leg edema, nausea, palpitations, sense of impending doom, syncope or vomiting Treatment prior to arrival: aspirin Review of Systems Const: Denies: fever(s), chills or diaphoresis ENMT: Denies: throat pain, ear or mastoid pain, nasal discharge or nasal congestion Card: Reports: chest pain; Denies: palpitations, irregular heart rhythm, edema or syncope Resp: Denies: dyspnea GI: Denies: abdominal pain, nausea, vomiting, hematemesis or coffee ground emesis : Denies: flank pain, difficulty urinating, dysuria, urinary frequency or urinary urgency Musc: Reports: neck pain and back pain Skin/Breast: Denies: rash or pruritus PFS ED PFSH: Medical History Atherosclerosis of coronary artery GERD (gastroesophageal reflux disease) Hyperlipidemia Hypertension Surgical History History of appendectomy History of cataract surgery History of hip replacement History of knee replacement Family History Mother Cancer Father Cancer Social History Quit status (tobacco): has quit using tobacco Alcohol intake: current Alcohol intake frequency: few times a week Alcohol type: beer Adopted: No Caregiver/support person: No Lives independently: No Household members: spouse Marital status: Current occupational status: retired History of recent travel: No Sexually active: Yes Current gender identity: Male Physical Exam Const: GENERAL APPEARANCE: cooperative and comfortable ORIENTATION/CONSCIOUSNESS: Yes awake, Yes oriented to person, Yes oriented to place and Yes oriented to time HENMT: COMMON NORMALS: normocephalic, atraumatic and hearing grossly normal bilaterally HEAD & SCALP: normocephalic and atraumatic Neck/C-Spine: COMMON NORMALS: no JVD Resp: COMMON NORMALS: normal respiratory effort, No retractions, No use of accessory muscles and clear to auscultation bilaterally AUSCULTATION: clear to auscultation bilaterally Cardio: COMMON NORMALS: no JVD, regular rate, regular rhythm and No murmurs present (Cardio) RATE: regular rate RHYTHM: regular rhythm GI: COMMON NORMALS: Soft to palpation and No hepatosplenomegaly present AUSCULTATION: Yes normoactive bowel sounds PALPATION: Yes Soft to palpation, No Tenderness to palpation present (GI), No Guarding due to palpation present (GI) and Yes No hepatosplenomegaly present Extremity: COMMON NORMALS: normal to inspection, capillary refill normal, no clubbing, cyanosis or edema, no calf tenderness and no pedal edema Neuro: SENSORIUM/ORIENTATION: Yes oriented to person, Yes oriented to place and Yes oriented to time Skin: COMMON NORMALS: no rashes or lesions noted GENERAL SKIN EXAM: no rashes or lesions noted Course Vital Signs: Vital signs: Vital Signs Temperature 98.2 F 11/08/21 13:15 Pulse Rate 80 11/08/21 13:15 Respiratory Rate 15 11/08/21 13:15 Blood Pressure 126/73 11/08/21 13:15 Pulse Oximetry 94 11/08/21 13:15 MDM - Chest Pain Medical Decision Making Patient having chest discomfort. Discussed with hospitalist will admit for further rule out and evaluation. Medical Records I reviewed the patient's medical records. Lab Data I reviewed the patient's lab results. : 11/07/21 02:38 11/08/21 07:15 Radiology Impressions Chest X-Ray 11/06/21 09:03 IMPRESSION: Stable chest with no acute abnormality. Chest/Abdomen/Pelvis CTA 11/06/21 18:01 IMPRESSION: 1. Abdominal aorta intact, negative for acute inflammatory process in the abdomen or pelvis. 2. Ascending thoracic aorta is prominent measuring 3.9 cm without findings of rupture. 3. Several benign hepatic cysts. 4. Bilateral benign renal cysts. 5. Bilateral nonobstructing renal calyceal stones. 6. Right hip arthroplasty changes. 7. Coronary artery atherosclerotic calcifications. Laboratory Results WBC 6.2 10^3/uL (4.0-10.0) 11/07/21 02:38 RBC 3.23 10^6/uL (4.1-5.3) L 11/07/21 02:38 Hgb 10.4 g/dL (11.7-16.6) L 11/07/21 02:38 Hct 30.3 % (42.0-52.0) L 11/07/21 02:38 MCV 93.8 fl (80-94) 11/07/21 02:38 MCH 32.2 pg (28.0-34.0) 11/07/21 02:38 MCHC 34.3 g/dL (30.0-36.0) 11/07/21 02:38 RDW 12.2 % (12.1-15.1) 11/07/21 02:38 Plt Count 286 10^3/cmm (130-400) 11/07/21 02:38 MPV 9.7 fL (7.4-10.4) 11/07/21 02:38 Neut % (Auto) 48.4 % 11/07/21 02:38 Lymph % (Auto) 27.3 % 11/07/21 02:38 Camp % (Auto) 14.6 % 11/07/21 02:38 Eos % (Auto) 8.4 % 11/07/21 02:38 Baso % (Auto) 1.0 % 11/07/21 02:38 Neut # (Auto) 2.99 10^3/uL (1.8-7.7) 11/07/21 02:38 Lymph # (Auto) 1.7 10^3/uL (0.8-4.8) 11/07/21 02:38 Camp # (Auto) 0.9 10^3/uL (0.2-0.9) 11/07/21 02:38 Eos # (Auto) 0.5 10^3/uL (0.0-0.8) 11/07/21 02:38 Baso # (Auto) 0.1 10^3/uL (0.0-0.1) 11/07/21 02:38 Nucleated RBC % (auto) 0 % 11/07/21 02:38 Nucleated RBCs # 0.0 /100WBC 11/07/21 02:38 Sodium 122 mmol/L (136-145) L 11/07/21 02:38 Potassium 4.3 mmol/L (3.5-5.1) 11/07/21 02:38 Chloride 86 mmol/L (98-107) L 11/07/21 02:38 Carbon Dioxide 25 mmol/L (22-29) 11/07/21 02:38 Anion Gap 15.3 (5-19) 11/07/21 02:38 BUN 23 mg/dL (8-23) 11/07/21 02:38 Creatinine 1.1 mg/dL (0.7-1.2) 11/07/21 02:38 GFR Calculation Not Reportable 11/07/21 02:38 Glucose 92 mg/dL (65-115) 11/07/21 02:38 Estimat Average Glucose 88 11/06/21 09:22 Hemoglobin A1c 4.7 % (4.0-6.0) 11/06/21 09:22 Serum Osmolality 262 mOsm/kg (278-305) L 11/06/21 15:34 Calculated Osmolality 257 mOsm/kg (285-295) L 11/07/21 02:38 Calcium 9.0 mg/dL (8.5-10.5) 11/07/21 02:38 Magnesium 2.0 mg/dL (1.7-2.3) 11/06/21 15:34 Total Bilirubin 0.6 mg/dL (0.15-1.2) 11/06/21: AST 14 U/L (0-40) 11/06/21: ALT 13 U/L (0-41) 11/06/21: Alkaline Phosphatase 60 IU/L (40-130) 11/06/21 09: Troponin T Baseline 11 ng/L (0-15) 11/06/21: Troponin T 120 Minute 11.66 ng/L (0-15) 11/06/21: Delta Troponin T 0.66 ABS# (0-10) 11/06/21: Troponin T Hi Sens 6Hr 11.26 ng/L (0-15) 11/06/21 15:34 Troponin T Hi Sens 6Hr Delta 0.26 ng/L (0-12) 11/06/21 15:34 NT-Pro-B Natriuret Pep 135 pg/mL (0-125) H 11/06/21 15:34 Total Protein 7.9 g/dL (6.6-8.7) 11/06/21: Albumin 4.9 g/dL (3.5-5.2) 11/06/21: Globulin 3.0 g/dL (1.3-4.6) 11/06/21: Triglycerides 88 mg/dL (0-150) 11/06/21 15:34 Cholesterol 183 mg/dL (0-200) 11/06/21 15:34 LDL Cholesterol, Calc 73 mg/dL (50-129) 11/06/21 15:34 HDL Cholesterol 92 mg/dL (60-100) 11/06/21 15:34 LDL/HDL Ratio 0.79 RATIO (0.00-3.22) 11/06/21 15:34 Cholesterol/HDL Ratio 1.99 mg/dL (1.0-5.00) 11/06/21 15:34 Urine Osmolality 225 mOsm/kg (50-1200) 11/06/21 15:11 Ur Random Sodium 49 mmol/L 11/06/21 15:11 Discharge Plan Discharge Patient Disposition: Admitted As Inpatient Admit Provider: Ainsley Christian Clinical Impression: Atherosclerotic heart disease of kashia coronary artery with other forms of angina pectoris, Hypertension, GERD (gastroesophageal reflux disease), Hyperlipidemia Condition: Stable Discharge Diet: Cardiac Discharge Activity: Resume usual activity Coding Level of Care Code ED Parliamentary Counsel for Chg Fwd Exam Comprehensive
[2021-11-06 09:53] LABS: Troponin(5th) Baseline 11 ng/L (0-15)
[2021-11-06 09:57] LABS: Alanine Aminotransferase 13 U/L (0-41); Albumin Level 4.9 g/dL (3.5-5.2); Alkaline Phosphatase 60 IU/L (40-130); Anion Gap 17.3 (5-19); Aspartate Amino Transferase 14 U/L (0-40); Blood Urea Nitrogen 19 mg/dL (8-23); Calcium 9.6 mg/dL (8.5-10.5); Carbon Dioxide 24 mmol/L (22-29); Chloride 87 mmol/L (98-107); Glucose 110 mg/dL (65-115); Osmolality Calculated 261 mOsm/kg (285-295); Potassium 4.3 mmol/L (3.5-5.1); Sodium 124 mmol/L (136-145); Total Bilirubin 0.6 mg/dL (0.15-1.2); Total Protein 7.9 g/dL (6.6-8.7)
--- NOTE | 2021-11-06 11:03 | ECG_ITS ---
[facility] Test Date: 2021-11-06 Pat Name: Nino Mg Department: Room: Gender: Male Voip Technician: : 1950 Requested By: Ronni Wright Order Number: [id number] Cristopher MD: Thea Galo M.D. Measurements Intervals [place] Rate: 68 P: 61 GA: 197 QRS: 48 QRSD: 112 T: 33 QT: 400 QTc: 428 Interpretive Statements SINUS RHYTHM INDETERMINATE AXIS INCOMPLETE RIGHT BUNDLE BRANCH BLOCK [90+ ms QRS DURATION, TERMINAL R IN V1/V2, 40+ ms S IN I/aVL/V4/V5/V6] No previous ECG available for comparison Electronically Signed On 11-06-2021 22:55:01 CDT by Thea Galo M.D. [id number]
[2021-11-06 11:49] LABS: Troponin 5 2HR 11.66 ng/L (0-15)
[2021-11-06] MEDS: nitroglycerin 1 gm/inch oint Pkt 0.5 INCH TOPICAL (13:09)
[2021-11-06 13:26] LABS: Troponin 5 2HR Delta 0.66 ABS# (0-10)
--- NOTE | 2021-11-06 14:19 | PM.HP ---
Providers/Chief Complaint Admitting Physician: Ainsley Christian MD Primary Care Provider: AURY Aragon Chief Complaint: chest pains/throat tightness History of Present Illness Nino Mg Jr is a 71 year old male with past medical history of CAD, GERD, hypertension, hyperlipidemia presenting for chest pain that has been going on intermittently since 4 this morning. Also he states for the last few weeks he has had the same thing intermittently as well but now it has worsened. The pain last 10 to 15 seconds in the right lower sternal area and sometimes radiates to his neck and back as well. He describes it as a squeezing pressure deep in chest. He denies any shortness of breath. He denies any sweating. He cannot really tell me if something makes it better or worse. He usually takes his medications on time. He says he is on a water pill and medication for blood pressure. He says he took his medications today. He also said he had an angiogram about a year ago. He does not believe he has any stents. On chart review there is evidence of nonischemic coronary disease on cardiac cath 09/2020. There was also a noncritical stenosis in proximal LAD. He denies abdominal pain, nausea, vomiting, rash, throat pain, fever or chills. Review of systems negative otherwise except noted in HPI. Patient is a former smoker but no longer smokes. He saw cardiology in April 2021. His last echo was performed in September 2020 which showed EF 55 to 60% and grade 1 diastolic dysfunction. Mildly dilated ascending aorta. ED course: On arrival blood pressure 106/57 respiratory 15, pulse 60, temperature 98.4, pulse ox 98% on room air. EKG did not show acute ischemia. Troponins negative so far. Heart score 6. Hospitalist was called for admission. Medications/Allergies Home Medications Medication Instructions Recorded Confirmed Last Taken Type multivitamin 1 tab PO QAM 02/24/20 11/06/21 11/06/21 History aspirin 81 mg tablet,delayed 81 mg PO QAM 08/24/20 11/06/21 11/06/21 History release (Aspirin Low Dose) diltiazem HCl 120 mg 120 mg PO BID #180 cap 07/22/21 11/06/21 11/06/21 Rx capsule,extended release 12 hr Vitamin B-12 1 tab PO QPM 11/06/21 11/06/21 Unknown History amlodipine 10 mg tablet 10 mg PO BEDTIME 11/06/21 11/06/21 11/05/21 History atorvastatin 10 mg tablet 10 mg PO QAM 11/06/21 11/06/21 11/06/21 History cetirizine 10 mg tablet (Zyrtec) 10 mg PO DAILY PRN 11/06/21 11/06/21 Unknown History furosemide 40 mg tablet (Lasix) 40 mg PO QAM 11/06/21 11/06/21 11/06/21 History iron bis glycinate josseline 28 mg 1 cap PO QPM 11/06/21 11/06/21 11/05/21 History iron-vit C 60 mg-FA 400 mcg-B12 8mcg cap lisinopril 40 mg tablet 40 mg PO QAM 11/06/21 11/06/21 11/06/21 History pantoprazole 40 mg tablet,delayed 40 mg PO DAILY PRN 11/06/21 11/06/21 Unknown History release potassium gluconate 595 mg (99 mg) 595 mg PO QAM 11/06/21 11/06/21 11/06/21 History tablet Allergies Allergy/AdvReac Type Severity Reaction Status Date / Time No Known Allergies Allergy Verified 11/06/21 12:33 PFSH Acute PFSH: Medical History Atherosclerosis of coronary artery GERD (gastroesophageal reflux disease) Hyperlipidemia Hypertension Surgical History History of appendectomy History of cataract surgery History of hip replacement History of knee replacement Family History Mother Cancer Father Cancer Social History Quit status (tobacco): has quit using tobacco Alcohol intake: current Alcohol intake frequency: few times a week Alcohol type: beer Adopted: No Caregiver/support person: No Lives independently: No Household members: spouse Marital status: Current occupational status: retired History of recent travel: No Sexually active: Yes Current gender identity: Male Vitals/I&O/Wt Last Vital Signs Temp 98.4 F 11/06/21 09:09 Pulse 56 L 11/06/21 13:29 Resp 16 11/06/21 13:29 BP 138/79 11/06/21 13:29 Pulse Ox 100 11/06/21 13:29 Weight last 48 hrs Weight 95.254 kg Physical Exam Narrative: General: Alert oriented x3, patient seen sitting up in bed HEENT: Normocephalic, atraumatic, EOMI, breathing normally Cardio: Regular rate rhythm, normal S1-S2, no murmurs, pain not reproduced on movement or deep breath Respiratory: Good bilateral air entry, no wheezes no rhonchi appreciated GI: Abdomen soft, nontender, bowel sounds + Behavior: Appropriate and cooperative Extremities: 1+ edema, no cyanosis Data : 11/06/21 09:22 11/06/21 15:34 A&P Assessment and plan (1) GERD (gastroesophageal reflux disease): Status: Acute Qualifiers: Esophagitis presence: without esophagitis Qualified Code(s): K21.9 - Gastro-esophageal reflux disease without esophagitis (2) Atherosclerosis of coronary artery: Status: Acute (3) Hyperlipidemia: Status: Acute (4) Hypertension: Status: Chronic Qualifiers: Hypertension type: essential hypertension Qualified Code(s): I10 - Essential (primary) hypertension (5) Chest pressure: Status: Acute Plan #Chest pressure #History of moderate disease in LAD region, no PCI done #GERD #Hypertension #Hyperlipidemia ? He did receive morphine 4 mg IV in the ER. He also received Nitropaste. Delta trop negative ?Continue lisinopril ? Continue aspirin ? Increase atorvastatin to 80 ? Continue amlodipine ? Continue Protonix - Hold lasix - Hold cardizem for Am stress test. No known history of atrial fibrillation. He takes this for BP - will order gi cocktail to see if pt improves - nitropaste is on, pt says no improvement - if pain remains persistent, we might consult cards - check echo #Hyponatremia -Check urine sodium, check urine osmolality, check serum osmolality ? We will start on normal saline 60 cc/h ? Patient not having any mental status issues at this time. ? Goal to correct 6 to 8 mEq per 24 hours - Recheck sodium q6H Full Code Attestations Medical Necessity Statement*: Needs to be evaluated for chest pressure. Coding Level of Care Code Acute Dipper Machine Operator for Chg Fwd Diagnoses GERD (gastroesophageal reflux disease) K21.9 Esophagitis presence: without esophagitis Atherosclerosis of coronary artery I25.10 Hyperlipidemia E78.5 Hypertension I10 Hypertension type: essential hypertension Chest pressure R07.89
--- NOTE | 2021-11-06 14:40 | ECG_ITS ---
Test Date: 2021-11-07 Pat Name: Nino Mg Department: Room: ICU06 Gender: Male Bobbin Winder: Xiao Ortiz : 1950 Requested By: Ainsley Christian Order Number: [id number] Cristopher MD: Christy Rogers M.D. Interpretive Statements NAME OF STUDY: LEXISCAN SESTAMIBI STRESS TEST INDICATION: Chest Pain, PROCEDURE: At the baseline, the EKG revealed sinus rhythm with a poor R wave progression.. The baseline blood pressure was 127/70 mm Hg with a heart rate of 81 beats/min. Lexiscan was infused over a period of 20 seconds. A total of 0.4 milligrams of Lexiscan was infused. The stress phase was continued for a total of 5 minutes. Heart rate at the end of the stress phase was 48 with a blood pressure 62/40. The EKG at the peak infusion revealed no significant changes. Sestamibi was injected 20 seconds after the Lexiscan infusion. Blood pressure at the end of the recovery phase was 100/60 with a heart rate of 69 per minute. CONCLUSION: 1. No significant EKG changes with the LexiScan infusion 2. No LexiScan induced chest pain or cardiac arrhythmia 3. Normal blood pressure and heart rate response 4. Sestamibi/sestamibi perfusion scan pending; see separate report. Electronically Signed On 11-07-2021 13:38:18 CDT by Christy Rogers M.D. [id number]
--- NOTE | 2021-11-06 15:03 | ECG_ITS ---
[facility] Test Date: 2021-11-06 Pat Name: Nino Mg Department: Room: 111 Gender: Male Residential Life Director: : 1950 Requested By: Ronni Wright Order Number: [id number] Cristopher MD: Thea Galo M.D. Measurements Intervals [place] Rate: 68 P: 60 WV: 227 QRS: 56 QRSD: 109 T: 31 QT: 403 QTc: 431 Interpretive Statements SINUS RHYTHM WITH FIRST DEGREE AV BLOCK INDETERMINATE AXIS Compared to ECG 11/06/2021 11:07:30 Indeterminate axis now present Sinus bradycardia no longer present Intraventricular conduction delay no longer present Electronically Signed On 11-06-2021 22:51:25 CDT by Thea Galo M.D. [id number]
[2021-11-06 15:26] LABS: Estmated Average Glucose 88; Hemoglobin A1C 4.7 % (4.0-6.0)
--- NOTE | 2021-11-06 15:33 | USCV_ITS ---
Nino Mg Age: 71 Gender: M : 1950 Exam Date: 11/06/2021 15:45 Ordering Phys: Ainsley Christian MD Technologist: William Espino [place] [facility] [place]: chest pain BP: 107 / 72 HR: 62 Rhythm: Sinus Technical Quality: Adequate MEASUREMENTS (Male / Female) Normal Values 2D ECHO LV Diastolic Diameter PLAX 5.5 cm 4.2 - 5.9 / 3.9 - 5.3 cm LV Systolic Diameter PLAX 3.6 cm IVS Diastolic Thickness 1.2 cm 0.6 - 1.0 / 0.6 - 0.9 cm IVS Systolic Thickness 1.6 cm LVPW Diastolic Thickness 1.1 cm 0.6 - 1.0 / 0.6 - 0.9 cm LVPW Systolic Thickness 1.4 cm LVOT Diameter 2.1 cm LV Ejection Fraction 2D Teich 63.0 % LV Ejection Fraction MOD 2C 63.4 % LV Ejection Fraction 2C AL 63.2 % LA Diameter 4.1 cm IVC Diameter 1.9 cm M-MODE Aortic Annulus Diameter 4.3 cm LA Ao Ratio MM 1.0 MV E Point Septal Separation 0.8 cm DOPPLER AV Peak Velocity 144.0 cm/s LVOT Peak Velocity 95.0 cm/s AV Area Cont Eq vti 2.4 cm squared AV Area Cont Eq pk 2.3 cm squared MV Area PHT 5.0 cm squared Mitral E to A Ratio 0.8 MV E' Velocity 36.0 cm/s Mitral E to MV E' Ratio 9.8 Mitral E to LV E' Lateral Ratio 9.2 Mitral E to LV E' Septal Ratio 10.4 TR Peak Velocity 111.0 cm/s TR Peak Gradient 4.9 mmHg TV Peak E Velocity 71.0 cm/s Right Atrial Pressure 3.0 mmHg Pulmonary Artery Systolic Pressu 7.9 mmHg PV Peak Velocity 123.0 cm/s FINDINGS Left Ventricle Normal left ventricular size and systolic function, EF 67 %. No regional wall motion abnormalities. Grade I/IV diastolic dysfunction (abnormal relaxation filling pattern), normal to mildly elevated filling pressures. Mild left ventricular hypertrophy. Right Ventricle The right ventricle is normal in size and function. Right Atrium The right atrium is normal in size. Left Atrium The left atrium is normal in size. Mitral Valve No gross abnormalities noted Aortic Valve Thickened aortic valve. Tricuspid Valve No gross abnormalities noted Pulmonic Valve No gross abnormalities noted Pericardium Normal pericardium without effusion. Aorta Normal ascending aorta dimension. CONCLUSIONS Normal left ventricular size and systolic function, EF 67 %. No regional wall motion abnormalities. Grade I/IV diastolic dysfunction (abnormal relaxation filling pattern), normal to mildly elevated filling pressures. Mild left ventricular hypertrophy. Thickened aortic valve. Normal cardiac chamber sizes There is no pericardial effusion. There are no intracardiac masses. Compared to the study from 10/16/2020, there may not be a significant change Dr Christy Rogers MD FACC (Electronically Signed) Final Date: 06 Nov 2021 20:18 S
[2021-11-06] MEDS: enoxaparin 40 mg/0.4 mL Syringe SUBCUT (15:49)
[2021-11-06] MEDS: sodium chloride 0.9% 1,000 ML 60 ML IV (15:50)
[2021-11-06] MEDS: lidocaine 2% viscous 15 ML, aluminum-mag hydrox-simethicon 30 ML, sucralfate oral liq 1 GM PO (15:50)
[2021-11-06 16:39] LABS: Urine Random Sodium 49 mmol/L
[2021-11-06 16:42] LABS: Chol HDL Ratio 1.99 mg/dL (1.0-5.00); Cholesterol 183 mg/dL (0-200); HDL Cholesterol 92 mg/dL (60-100); LDL Cholesterol Calculated 73 mg/dL (50-129); LDL HDL Ratio 0.79 RATIO (0.00-3.22); Triglycerides 88 mg/dL (0-150); Troponin 5 6HR 11.26 ng/L (0-15)
[2021-11-06 16:43] LABS: NT Pro B Type Natriuretic Pept 135 pg/mL (0-125); Sodium 123 mmol/L (136-145)
[2021-11-06 16:49] LABS: Troponin 5 6HR Delta 0.26 ng/L (0-12)
[2021-11-06] MEDS: cyanocobalamin 1,000 mcg Tablet 1000 MCG PO (17:26)
[2021-11-06] MEDS: docusate sodium 100 mg Capsule PO (17:26)
[2021-11-06] MEDS: morphine 4 mg/mL SDV 1 mL 1 MG IVP (17:54)
--- NOTE | 2021-11-06 18:01 | CTR_ITS ---
PROCEDURE INFORMATION: Exam: CTA Abdomen and Pelvis With Contrast Exam date and time: 11/06/2021 6:23 PM Age: 71 years old Clinical indication: Other: Chest pain; Patient HX: HX of enlarged thoracic aorta with scapular pain; Additional info: Rule out aortic dissection TECHNIQUE: Imaging protocol: Computed tomographic angiography of the abdomen and pelvis with contrast material. 3D rendering (Not supervised by radiologist): MIP and/or 3D reconstructed images were created by the technologist. Radiation optimization: All CT scans at this facility use at least one of these dose optimization techniques: automated exposure control; mA and/or kV adjustment per patient size (includes targeted exams where dose is matched to clinical indication); or iterative reconstruction. Contrast material: OMNI 300; Contrast volume: 95 ml; Contrast route: INTRAVENOUS (IV); COMPARISON: CT abdomen pelvis w con* [id number] 10/08/2020 6:31 PM RADIATION DOSE METRICS: Total DLP (mGy-cm): 1918.06 FINDINGS: Heart: Coronary artery atherosclerotic calcifications. Aorta: Ascending thoracic aorta is prominent measuring 3.9 cm without findings of rupture. Celiac trunk and mesenteric arteries: No occlusion or significant stenosis. Renal arteries: No occlusion or significant stenosis. Right iliac arteries: No occlusion or significant stenosis. Left iliac arteries: No occlusion or significant stenosis. Liver: Several benign hepatic cysts. Gallbladder and bile ducts: Unremarkable. No calcified stones. No ductal dilation. Pancreas: Unremarkable. No mass. No ductal dilation. Spleen: Unremarkable. No splenomegaly. Adrenal glands: Unremarkable. No mass. Kidneys and ureters: Bilateral benign renal cysts. Bilateral nonobstructing renal calyceal stones. Stomach and bowel: Unremarkable. No obstruction. No mucosal thickening. Appendix: No evidence of appendicitis. Intraperitoneal space: Unremarkable. No free air. No significant fluid collection. Lymph nodes: Unremarkable. No enlarged lymph nodes. Urinary bladder: Unremarkable. No mass. Reproductive: Unremarkable as visualized. Bones/joints: Right hip arthroplasty changes. Soft tissues: Unremarkable. CT/CT angio chest abdomen pelvis IMPRESSION: 1. Abdominal aorta intact, negative for acute inflammatory process in the abdomen or pelvis. 2. Ascending thoracic aorta is prominent measuring 3.9 cm without findings of rupture. 3. Several benign hepatic cysts. 4. Bilateral benign renal cysts. 5. Bilateral nonobstructing renal calyceal stones. 6. Right hip arthroplasty changes. 7. Coronary artery atherosclerotic calcifications.
[2021-11-06] MEDS: iohexol 300 mg/mL 100 mL Btl IV (18:42)
[2021-11-06] MEDS: clopidogrel 300 mg Tablet PO (19:24)
[2021-11-06] MEDS: enoxaparin 60 mg/0.6 mL Syringe SUBCUT (19:24)
--- NOTE | 2021-11-06 19:24 | P.CONIM_ITS ---
Providers/Reason For Consult Consulting Physician/Specialty*: KATLYN Rogers MD/cardiology Reason for Consult*: Patient with chest pain, not relieved with morphine or nitroglycerin. History of ASHD Attending Physician: Ainsley Christian MD Primary Care Provider: AURY Aragon History of Present Illness History of Present Illness Nino Mg Jr is a 71 year old male with a history of hypertension, dyslipidemia and coronary artery disease, he is present with complaints of chest pain since last evening. This patient apparently has been in his baseline state of health up until the last evening when he started having pain in the lower substernal region, radiating across the chest. Intensity of the pain was 3-4 over 10. No definite possibility factors. Occasionally the pain may radiate to the neck. No other radiation or associated symptoms. The pain has been waxing and waning through the night. Even now he has the pain with no significant improvement. He was given topical nitrates and IV morphine. Apparently there was not much relief. GI cocktail also was tried with no relief. He had a CT of the chest which revealed no evidence of an aortic dissection. This patient had a cardiac catheterization September 2020. At that time, he was found to have a 40% lesion in the left anterior descending artery proximally. He had a an FFR which was 0.85. It was opted to treat him medically at that time. Had a minimal intimal irregularities in the other vessels. LV ejection fraction was normal. He denies any fever or chills. No cough. Remote history of smoking abuse which he quit more than 20 years ago. He drinks socially. Has a history of GERD. His GERD symptoms are properly controlled with the Prilosec. The current symptoms are different from the GERD symptoms. Review of Systems Narrative: CONSTITUTIONAL: No fever or chills. EYES: No blurring of vision or other visual disturbances lately. ENT: No hoarseness of voice, auditory disturbances or sore throat. CARDIOVASCULAR: As mentioned above. RESPIRATORY: No significant cough. GASTROINTESTINAL: History of GERD GENITOURINARY: No dysuria or hematuria. INTEGUMENTARY: No skin rashes or history of skin cancer. NEURO: No transient ischemic attacks or amaurosis. PSYCHIATRIC: No history of psychosis or major depression. HEMATOLOGIC: No bleeding disorders or significant anemia. ENDOCRINE: No history of polyuria or polydipsia. MUSCULOSKELETAL: No recent joint pain or swelling. ALLERGY/IMMUNOLOGY: As mentioned above. Medications/Allergies Home Medications Medication Instructions Recorded Confirmed Last Taken Type multivitamin 1 tab PO QAM 02/24/20 11/06/21 11/06/21 History aspirin 81 mg tablet,delayed 81 mg PO QAM 08/24/20 11/06/21 11/06/21 History release (Aspirin Low Dose) diltiazem HCl 120 mg 120 mg PO BID #180 cap 07/22/21 11/06/21 11/06/21 Rx capsule,extended release 12 hr Vitamin B-12 1 tab PO QPM 11/06/21 11/06/21 Unknown History amlodipine 10 mg tablet 10 mg PO BEDTIME 11/06/21 11/06/21 11/05/21 History atorvastatin 10 mg tablet 10 mg PO QAM 11/06/21 11/06/21 11/06/21 History cetirizine 10 mg tablet (Zyrtec) 10 mg PO DAILY PRN 11/06/21 11/06/21 Unknown History furosemide 40 mg tablet (Lasix) 40 mg PO QAM 11/06/21 11/06/21 11/06/21 History iron bis glycinate josseline 28 mg 1 cap PO QPM 11/06/21 11/06/21 11/05/21 History iron-vit C 60 mg-FA 400 mcg-B12 8mcg cap lisinopril 40 mg tablet 40 mg PO QAM 11/06/21 11/06/21 11/06/21 History pantoprazole 40 mg tablet,delayed 40 mg PO DAILY PRN 11/06/21 11/06/21 Unknown History release potassium gluconate 595 mg (99 mg) 595 mg PO QAM 11/06/21 11/06/21 11/06/21 History tablet Allergies Allergy/AdvReac Type Severity Reaction Status Date / Time No Known Allergies Allergy Verified 11/06/21 12:33 Current Medications Generic Name Dose Route Start Last Admin Trade Name Freq PRN Reason Stop Dose Admin Cyanocobalamin 1,000 mcg 11/06/21 18:00 11/06/21 17:26 Cyanocobalamin 1,000 Mcg Tablet PO 1,000 mcg QPM MIMI Administration Docusate Sodium 100 mg 11/06/21 18:00 11/06/21 17:26 Docusate Sodium 100 Mg Capsule PO 100 mg BID MIMI Administration PFSH Acute PFSH: Medical History Atherosclerosis of coronary artery GERD (gastroesophageal reflux disease) Hyperlipidemia Hypertension Surgical History History of appendectomy History of cataract surgery History of hip replacement History of knee replacement Family History Mother Cancer Father Cancer Social History Quit status (tobacco): has quit using tobacco Alcohol intake: current Alcohol intake frequency: few times a week Alcohol type: beer Adopted: No Caregiver/support person: No Lives independently: No Household members: spouse Marital status: Current occupational status: retired History of recent travel: No Sexually active: Yes Current gender identity: Male Vitals/I&O/Wt Last Vital Signs Temp 98.7 F 11/06/21 16:36 Pulse 68 11/06/21 16:36 Resp 13 11/06/21 16:36 BP 116/65 11/06/21 16:36 Pulse Ox 95 11/06/21 16:36 Weight last 48 hrs Weight 210 lb Physical Exam Narrative: GENERAL: The patient is alert and oriented times three. Not in any acute distress. HEENT: No significant pallor, icterus or lymphadenopathy. The pupils are symmetrical. Oral cavity: There are no mucous membrane lesions. Funduscopic examination: The fundus is not visualized NECK: Trachea appears to be central. No masses noted. No JVD or thyromegaly appreciated. No carotid bruit. RESPIRATORY: Chest is symmetrical. No intercostals muscle retraction or any accessory muscle activation. There is no chest wall tenderness. Breath sounds are heard bilaterally. No rales or rhonchi heard. No evidence of any consolidation. BREASTS: Deferred. HEART: PMI could not be palpated. No palpable precordial events. S1 and S2 are normal. No S3 or S4 heard. No pericardial rub or any click heard. ABDOMEN: No vessel pulsations or distention. No tenderness. No organomegaly appreciated. No abdominal bruit. Bowel sounds are normally heard. : Deferred. RECTAL: Deferred. LYMPHATIC: No lymphadenopathy noted in the neck or groin. EXTREMITIES: No edema or cyanosis. No clubbing. The pulses are symmetrical bilaterally. The radial, femoral, dorsalis pedis and the posterior tibial pulses are palpated and found to be in good volume and amplitude. MUSCULOSKELETAL: No acute joint deformities or swelling SKIN: There are no significant scars or skin rash noted. NEUROPSYCHIATRIC: The patient is alert and oriented x3. Appears to be in a good mood. The higher functions are grossly within normal limits. No tremors or rigidity noted. Data : 11/06/21 09:11/06/21 15:34 Other Labs: Laboratory Last Values WBC 5.7 10^3/uL (4.0-10.0) 11/06/21: RBC 3.65 10^6/uL (4.1-5.3) L 11/06/21: Hgb 11.7 g/dL (11.7-16.6) 11/06/21: Hct 33.4 % (42.0-52.0) L 11/06/21: MCV 91.5 fl (80-94) 11/06/21: MCH 32.1 pg (28.0-34.0) 11/06/21: MCHC 35.0 g/dL (30.0-36.0) 11/06/21: RDW 11.9 % (12.1-15.1) L 11/06/21: Plt Count 315 10^3/cmm (130-400) 11/06/21: MPV 9.4 fL (7.4-10.4) 11/06/21: Neut % (Auto) 56.2 % 11/06/21: Lymph % (Auto) 23.4 % 11/06/21: [place] % (Auto) 11.2 % 11/06/21: Eos % (Auto) 7.9 % 11/06/21: Baso % (Auto) 0.9 % 11/06/21:22 Neut # (Auto) 3.20 10^3/uL (1.8-7.7) 11/06/21: Lymph # (Auto) 1.3 10^3/uL (0.8-4.8) 05/11/22 09:22 [place] # (Auto) 0.6 10^3/uL (0.2-0.9) 11/06/21: Eos # (Auto) 0.5 10^3/uL (0.0-0.8) 11/06/21 09: Baso # (Auto) 0.1 10^3/uL (0.0-0.1) 11/06/21: Nucleated RBC % (auto) 0 % 11/06/21: Nucleated RBCs # 0.0 /100WBC 11/06/21: Sodium 123 mmol/L (136-145) L 11/06/21 15:34 Potassium 4.3 mmol/L (3.5-5.1) 11/06/21: Chloride 87 mmol/L (98-107) L 11/06/21 09: Carbon Dioxide 24 mmol/L (22-29) 11/06/21 09: Anion Gap 17.3 (5-19) 11/06/21: BUN 19 mg/dL (8-23) 11/06/21 09: Creatinine 1.0 mg/dL (0.7-1.2) 11/06/21: GFR Calculation Not Reportable 11/06/21: Glucose 110 mg/dL (65-115) 11/06/21: Estimat Average Glucose 88 11/06/21: Hemoglobin A1c 4.7 % (4.0-6.0) 11/06/21: Calculated Osmolality 261 mOsm/kg (285-295) L 11/06/21: Calcium 9.6 mg/dL (8.5-10.5) 11/06/21: Magnesium 2.0 mg/dL (1.7-2.3) 11/06/21 15:34 Total Bilirubin 0.6 mg/dL (0.15-1.2) 11/06/21: AST 14 U/L (0-40) 11/06/21: ALT 13 U/L (0-41) 11/06/21:22 Alkaline Phosphatase 60 IU/L (40-130) 11/06/21 09: Troponin T Baseline 11 ng/L (0-15) 05/11/22 09:22 Troponin T 120 Minute 11.66 ng/L (0-15) 11/06/21 11:22 Delta Troponin T 0.66 ABS# (0-10) 11/06/21 11: Troponin T Hi Sens 6Hr 11.26 ng/L (0-15) 11/06/21 15:34 Troponin T Hi Sens 6Hr Delta 0.26 ng/L (0-12) 11/06/21 15:34 NT-Pro-B Natriuret Pep 135 pg/mL (0-125) H 11/06/21 15:34 Total Protein 7.9 g/dL (6.6-8.7) 11/06/21 09: Albumin 4.9 g/dL (3.5-5.2) 11/06/21: Globulin 3.0 g/dL (1.3-4.6) 11/06/21 09: Triglycerides 88 mg/dL (0-150) 11/06/21 15:34 Cholesterol 183 mg/dL (0-200) 11/06/21 15:34 LDL Cholesterol, Calc 73 mg/dL (50-129) 11/06/21 15:34 HDL Cholesterol 92 mg/dL (60-100) 11/06/21 15:34 LDL/HDL Ratio 0.79 RATIO (0.00-3.22) 11/06/21 15:34 Cholesterol/HDL Ratio 1.99 mg/dL (1.0-5.00) 11/06/21 15:34 Ur Random Sodium 49 mmol/L 11/06/21 15:11 Cardiac catheterization: My impression: 10/01/2020 * Procedure detail: We engaged left main artery using XB 3.5 guide catheter. IV heparin was used to maintain an ACT above 250 seconds. After zeroing and equalization, we performed FFR of proximal LAD stenosis which was nonischemic with a value of 0.85. At this time we removed the pressure wire and performed the final angiogram. Guide catheter was removed. Access sheath was removed and TR band applied. Patient left the skilled labor in a stable condition. EKG 1: My Interpretation: The EKG showed sinus rhythm with a first-degree AV block. No acute ST-T changes. EKG computer-generated impression: Chest X-Ray 11/06/21 09:03 IMPRESSION: Stable chest with no acute abnormality. Chest/Abdomen/Pelvis CTA 11/06/21 18:01 IMPRESSION: 1. Abdominal aorta intact, negative for acute inflammatory process in the abdomen or pelvis. 2. Ascending thoracic aorta is prominent measuring 3.9 cm without findings of rupture. 3. Several benign hepatic cysts. 4. Bilateral benign renal cysts. 5. Bilateral nonobstructing renal calyceal stones. 6. Right hip arthroplasty changes. 7. Coronary artery atherosclerotic calcifications. A&P Assessment and plan (1) Chest pain: The patient chest pain is unexplained at this time. His EKG is unremarkable. No evidence of myocardial injury so far. Possibility of worsening of the underlying coronary artery disease is a consideration. His symptoms may suggest unstable angina may be started on subcu Lovenox Plavix and aspirin. He may be continued on the current medications. Because of relatively low heart rate, I may hold off on any beta-amparo at this time. The CTA was done which revealed no evidence of any dissection. If the patient continues to remain stable, a myocardial fusion may be appropriate in the morning to further evaluate the symptoms. I also may go ahe ad and do a limited 2D echocardiogram in the morning to evaluate LV function and to rule out any other pathology Status: Acute (2) Atherosclerotic heart disease of [place] coronary artery with other forms of angina pectoris: As mentioned above. Possibility of worsening of the LAD lesion is a consideration. Status: Acute (3) Hyperlipidemia: May continue on the current medications. Status: Acute (4) Hypertension: The blood pressure is in the normal range at this time. May continue on the current medications. Status: Chronic Qualifiers: Hypertension type: essential hypertension Qualified Code(s): I10 - Essential (primary) hypertension (5) GERD (gastroesophageal reflux disease): May continue on the current medications. Based on the patient's clinical progress, further recommendations will be made. Thank you for the opportunity to eval this patient make these recommendation Status: Acute Qualifiers: Esophagitis presence: without esophagitis Qualified Code(s): K21.9 - Gastro-esophageal reflux disease without esophagitis Plan Patient requires continued hospital stay for close monitoring and further man agement Coding Level of Care Code Acute Athletics Director for Chg Fwd History Detailed Medical Decision Making Moderate Complexity Diagnoses Chest pain R07.9 Atherosclerotic heart disease of [place] coronary artery with other forms of angina pectoris I25.118 Hyperlipidemia E78.5 Hypertension I10 Hypertension type: essential hypertension GERD (gastroesophageal reflux disease) K21.9 Esophagitis presence: without esophagitis
[2021-11-06] MEDS: atorvastatin 40 mg Tablet 80 MG PO (20:23)
[2021-11-06] MEDS: amlodipine 10 mg Tablet PO (20:23)
[2021-11-06 21:23] LABS: Sodium 124 mmol/L (136-145)
--- NOTE | 2021-11-06 21:52 | PC.NURSE ---
Dr. Devries notified of sodium level of 124 per order.
[2021-11-07] VITALS (113 sets, daily range): BP systolic 100–140; BP diastolic 56–111; PULSE 65–108; RESP 9–26; TEMP 36.5–36.8; O2SAT 88–100
--- NOTE | 2021-11-07 | NMCV_ITS ---
NM carmen perf SPECT r/s* [id number] Nino Mg Age: 71 Gender: M : 1950 Exam Date: 11/07/2021 06:57 Ordering Phys: Ainsley Christian MD Technologist: MATT Camacho Exam Location: [facility] Indications: CHEST PAIN STRESS TEST Please see separate stress test report in [facility] for full findings IMAGE PROTOCOL Rest/Stress 1 Lexiscan Day Radiopharmaceutical Dose (mCi) Administration Site Administered by Rest: Tc-99m 10.9 IV MATT Morales Sestamibi Stress:Tc-99m 32.7 IV MATT Camacho Sestamijenna Rest: 07-Nov-2021 60 Discovery 630 Stress: 07-Nov-2021 30 Discovery 630 0.4mg Lexiscan. Images obtained in supine and prone position. SPECT RESULTS Technical Quality: Excellent Raw Data Analysis: Normal Image Corrections: No attenuation or motion correction applied Summed Stress Score: 0 Summed Rest Score: 0 Summed Difference Score: 0 PERFUSION FINDINGS Fairly uniform myocardial tracer uptake. No significant perfusion abnormalities. FUNCTIONAL RESULTS (calculated via Gated SPECT) Stress Image LV EF (%): 66 Stress EDV (mL):134 TID: 0.97 Stress ESV (mL):45 FUNCTIONAL FINDINGS: Segmental wall motion analysis revealing no gross wall motion abnormalities IMPRESSIONS 1. Unremarkable myocardial perfusion imaging 2. Normal LV ejection fraction of 66%. 3. LV wall motion analysis revealing no gross wall motion normalities 4. LV volume upper limit of normal. No significant coronary ischemia, based on the above findings Dr Christy Rogers MD FACC (Electronically Signed) Final Date: 07 Nov 2021 12:43 S
[2021-11-07 03:31] LABS: Basophils # 0.1 10^3/uL (0.0-0.1); Eosinophils # 0.5 10^3/uL (0.0-0.8); Eosinophils % 8.4 %; Hematocrit 30.3 % (42.0-52.0); Hemoglobin 10.4 g/dL (11.7-16.6); Lymphocytes # 1.7 10^3/uL (0.8-4.8); Lymphocytes % 27.3 %; Mean Corpuscular HGB Conc 34.3 g/dL (30.0-36.0); Mean Corpuscular Hemoglobin 32.2 pg (28.0-34.0); Mean Corpuscular Volume 93.8 fl (80-94); Mean Platelet Volume 9.7 fL (7.4-10.4); Monocytes # 0.9 10^3/uL (0.2-0.9); Monocytes % 14.6 %; Neutrophils # 2.99 10^3/uL (1.8-7.7); Neutrophils % 48.4 %; Nucleated Red Blood Cells % 0 %; Platelet Count 286 10^3/cmm (130-400); Red Blood Count 3.23 10^6/uL (4.1-5.3); Red Cell Distribution Width 12.2 % (12.1-15.1); White Blood Count 6.2 10^3/uL (4.0-10.0)
[2021-11-07 03:57] LABS: Anion Gap 15.3 (5-19); Blood Urea Nitrogen 23 mg/dL (8-23); Carbon Dioxide 25 mmol/L (22-29); Chloride 86 mmol/L (98-107); Glucose 92 mg/dL (65-115); Osmolality Calculated 257 mOsm/kg (285-295); Potassium 4.3 mmol/L (3.5-5.1); Sodium 122 mmol/L (136-145)
[2021-11-07] MEDS: lisinopril 20 mg Tablet 40 MG PO (05:12)
[2021-11-07] MEDS: multivitamin therapeutic Tablet 1 TAB PO (05:12)
[2021-11-07] MEDS: aspirin 81 mg EC Tablet PO (05:12)
[2021-11-07] MEDS: enoxaparin 100 mg/mL Syringe SUBCUT ×2 (05:12→17:59)
--- NOTE | 2021-11-07 05:55 | PC.NURSE ---
Patient states my chest pain went away when I laid on my right side.
--- NOTE | 2021-11-07 06:00 | PC.NURSE ---
Dr. Devries notified of sodium level of 122 per order.
[2021-11-07] MEDS: regadenoson 0.4 Mg/5 ml Syringe IVP (08:03)
[2021-11-07] MEDS: aminophylline 25 mg/mL SDV 10 mL IVP ×2 (08:25→08:34)
[2021-11-07] MEDS: sodium chloride 3% 500 ML 12 ML IV (09:58)
--- NOTE | 2021-11-07 10:14 | PM.PN ---
Subjective Subjective: Seen this morning. Patient came back from stress test. Sodium 122 today. Hypertonic saline to be started. Transfer to ICU. Events from yesterday: After admitting the patient patient continued to complain of chest pain. The pain was not relieved by Nitropaste, morphine or GI cocktail. He kept complaining of pain radiating to his back. CTA chest was done to rule out aortic dissection. It was negative. I also went ahead and started him on aspirin and loaded him with Plavix, atorvastatin 80, therapeutic dose Lovenox. Consulted cardiology as well. Patient went for stress test today. Vitals/I&O/Wt Last Vital Signs Temp 97.8 F 11/07/21 07:14 Pulse 69 11/07/21 08:39 Resp 18 11/07/21 07:14 BP 100/60 11/07/21 08:39 Pulse Ox 95 11/07/21 07:14 11/06/21 11/07/21 11/07/21 22:59 06:59 14:59 Intake Total 457 / 457 200 / 657 Balance 457 / 457 200 / 657 Weight last 48 hrs Weight 95.254 kg Physical Exam Narrative: General: Alert oriented x3, patient seen sitting up in bed HEENT: Normocephalic, atraumatic, EOMI, breathing normally Cardio: Regular rate rhythm, normal S1-S2, no murmurs, Respiratory: Good bilateral air entry, no wheezes no rhonchi appreciated GI: Abdomen soft, nontender, bowel sounds + Behavior: Appropriate and cooperative Extremities: 1+ edema, no cyanosis Data : 11/07/21 02:38 11/07/21 12:40 A&P Assessment and plan (1) Atherosclerotic heart disease of [place] coronary artery with other forms of angina pectoris: Status: Acute (2) Chest pressure: Status: Acute (3) GERD (gastroesophageal reflux disease): Status: Acute Qualifiers: Esophagitis presence: without esophagitis Qualified Code(s): K21.9 - Gastro-esophageal reflux disease without esophagitis (4) Atherosclerosis of coronary artery: Status: Acute (5) Hyperlipidemia: Status: Acute (6) Hypertension: Status: Chronic Qualifiers: Hypertension type: essential hypertension Qualified Code(s): I10 - Essential (primary) hypertension (7) Hyponatremia: Status: Acute Plan #Unstable angina #History of moderate disease in LAD region, no PCI done #GERD #Hypertension #Hyperlipidemia ? He did receive morphine 4 mg IV in the ER.? He also received Nitropaste. Delta trop negative ?Loaded with Plavix yesterday. Continue aspirin, atorvastatin, lisinopril ? Beta-amparo not started since patient was bradycardic. ? Await results of stress test. ? Echo does not show wall motion abnormalities. ? Cardiology on board. Will await recommendations. #Hyponatremia -Urine sodium 49, urine osmolality pending, serum osmolality pending ? Normal saline 60 cc/h was stopped yesterday as sodium dropped further. ? 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 He is not having any neurological issues at this time. He seems well compensated. ? This seems to be chronic hyponatremia. We will slowly correct. ? Transfer to ICU and start 3% normal saline at 12 cc/h. Check sodium every 2 hours. Will adjust rate of normal saline depending on how his sodium responds. ? Nephrology consulted, appreciate recommendations. ? Goal to correct 6 to 8 mEq per 24 hours Full Code Attestations Medical Necessity Statement*: Patient will require ICU stay for correction of hyponatremia. Anticipate stay 48 to 72 hours. Coding Level of Care Code Acute Surgical Technologist for g Fwd Diagnoses Atherosclerotic heart disease of [place] coronary artery with other forms of angina pectoris I25.118 Chest pressure R07.89 GERD (gastroesophageal reflux disease) K21.9 Esophagitis presence: without esophagitis Atherosclerosis of coronary artery I25.10 Hyperlipidemia E78.5 Hypertension I10 Hypertension type: essential hypertension Hyponatremia E87.1
--- NOTE | 2021-11-07 10:31 | P.PN_ITS ---
Subjective Subjective: Patient is still having on and off discomfort in her chest. Stress test is negative for ischemia. Says that pain is worse on palpation of the spine. He developed significant hyponatremia with a sodium level of 122. Vitals/I&O/Wt Last Vital Signs Temp 97.8 F 11/07/21 07:14 Pulse 69 11/07/21 08:39 Resp 18 11/07/21 07:14 BP 100/60 11/07/21 08:39 Pulse Ox 95 11/07/21 07:14 11/06/21 11/07/21 11/07/21 22:59 06:59 14:59 Intake Total 457 / 457 200 / 657 Balance 457 / 457 200 / 657 Weight last 48 hrs Weight 210 lb Physical Exam Narrative: GENERAL: Patient is alert, awake and oriented x3. [] NECK: No jugular vein distension. [] HEENT: No cyanosis. No icterus. No pallor. [] HEART: Regular S1 and S2. No murmur, rub or gallop. [] LUNGS: Clear to auscultate bilaterally. [] ABDOMEN: Soft, nontender and nondistended. Positive bowel sounds. No guarding, rebound or tenderness. [] CENTRAL NERVOUS SYSTEM: Grossly nonfocal. [] EXTREMITIES: Lower extremities with 1+ edema bilaterally. Pulses palpable in the lower extremities, both dorsalis pedis and posterior tibial. [] Data : 11/07/21 02:38 11/08/21 00:59 A&P Assessment and plan (1) Chest pain: Patient's chest pain is atypical. Her EKG did not show significant changes. Stress test is normal. Will recommend medical therapy at this time. CTA of the chest did not reveal dissection. Does complain of pain on palpation of spine. Will discuss with medicine team for further evaluation. Status: Acute (2) Atherosclerotic heart disease of [place] coronary artery with other forms of angina pectoris: Medical therapy for now as stress test is negative for ischemia. Status: Acute (3) Hyperlipidemia: May continue on the current medications. Status: Acute (4) Hypertension: The blood pressure is in the normal range at this time. May continue on the current medications. Status: Chronic Qualifiers: Hypertension type: essential hypertension Qualified Code(s): I10 - Essential (primary) hypertension (5) GERD (gastroesophageal reflux disease): May continue on the current medications. Based on the patient's clinical progress, further recommendations will be made. Thank you for the opportunity to eval this patient make these recommendation Status: Acute Qualifiers: Esophagitis presence: without esophagitis Qualified Code(s): K21.9 - Gastro-esophageal reflux disease without esophagitis (6) Hyponatremia: Nephrology on board. Status: Acute Plan Patient requires continued hospital stay for close monitoring and further management Attestations Medical Necessity Statement*: Care expected to cross 2 midnights. Coding Level of Care Code Acute Office Communication Professor for g Fwd Diagnoses Chest pain R07.9 Atherosclerotic heart disease of [place] coronary artery with other forms of angina pectoris I25.118 Hyperlipidemia E78.5 Hypertension I10 Hypertension type: essential hypertension GERD (gastroesophageal reflux disease) K21.9 Esophagitis presence: without esophagitis Hyponatremia E87.1
[2021-11-07] MEDS: docusate sodium 100 mg Capsule PO ×2 (10:34→17:59)
[2021-11-07] MEDS: pantoprazole DR 40 mg Tablet PO (10:35)
--- NOTE | 2021-11-07 10:38 | PM.CONSULT ---
Providers/Reason For Consult Consulting Physician/Specialty*: SILVESTRE BOYKIN ND / TELENEPHROLOGY Reason for Consult*: hyponatremia Requesting Physician: Dr Anahi Schmitz Attending Physician: Ainsley Christian MD Primary Care Provider: AURY Aragon History of Present Illness History of Present Illness Nino Mg Jr is a 71 year old male with a history of hypertension, dyslipidemia and coronary artery disease. In the last year he has started amlodipine and lasix. Pt presented in morning of 11-06-21 w/ CP. He had a CT of the chest which revealed no evidence of an aortic dissection. This patient had a cardiac catheterization September 2020.? At that time, he was found to have a 40% lesion in the left anterior descending artery proximally.? He had a an FFR which was 0.85.? It was opted to treat him medically at that time.? Pt had an Echo yesterday w/ a normal EF. -pt has known GERD and drinks a couple of beers a day. Renal is called as he presented w/ a sodium of 124- recieved ivf and na is now 122. Review of Systems General: Reports: 10 or more systems reviewed and unremarkable except in HPI and below Narrative: weak, cp. no sob, +GERD. no diarrhea. + urinary frequency. had a stress test this am and fainted in the middle. Medications/Allergies Home Medications Medication Instructions Recorded Confirmed Last Taken Type multivitamin 1 tab PO QAM 02/24/20 11/06/21 11/06/21 History aspirin 81 mg tablet,delayed 81 mg PO QAM 08/24/20 11/06/21 11/06/21 History release (Aspirin Low Dose) diltiazem HCl 120 mg 120 mg PO BID #180 cap 07/22/21 11/06/21 11/06/21 Rx capsule,extended release 12 hr Vitamin B-12 1 tab PO QPM 11/06/21 11/06/21 Unknown History amlodipine 10 mg tablet 10 mg PO BEDTIME 11/06/21 11/06/21 11/05/21 History atorvastatin 10 mg tablet 10 mg PO QAM 11/06/21 11/06/21 11/06/21 History cetirizine 10 mg tablet (Zyrtec) 10 mg PO DAILY PRN 11/06/21 11/06/21 Unknown History furosemide 40 mg tablet (Lasix) 40 mg PO QAM 11/06/21 11/06/21 11/06/21 History iron bis glycinate josseline 28 mg 1 cap PO QPM 11/06/21 11/06/21 11/05/21 History iron-vit C 60 mg-FA 400 mcg-B12 8mcg cap lisinopril 40 mg tablet 40 mg PO QAM 11/06/21 11/06/21 11/06/21 History pantoprazole 40 mg tablet,delayed 40 mg PO DAILY PRN 11/06/21 11/06/21 Unknown History release potassium gluconate 595 mg (99 mg) 595 mg PO QAM 11/06/21 11/06/21 11/06/21 History tablet Allergies Allergy/AdvReac Type Severity Reaction Status Date / Time No Known Allergies Allergy Verified 11/06/21 12:33 Current Medications Generic Name Dose Route Start Last Admin Trade Name Freq PRN Reason Stop Dose Admin Aminophylline 25 mg 11/07/21 06:40 11/07/21 08:34 Aminophylline 25 Mg/Ml Sdv 10 Ml IVP 11/08/21 06:39 25 mg Q2M PRN Administration see dose instructions Amlodipine Besylate 10 mg 11/06/21 21:00 11/06/21 20:23 Amlodipine 10 Mg Tablet PO 10 mg BEDTIME MIMI Administration Aspirin 81 mg 11/07/21 06:00 11/07/21 05:12 Aspirin 81 Mg Ec Tablet PO 81 mg QAM MIMI Administration Atorvastatin Calcium 80 mg 11/06/21 19:00 11/06/21 20:23 Atorvastatin 40 Mg Tablet PO 80 mg QD@1900 MIMI Administration Cyanocobalamin 1,000 mcg 11/06/21 18:00 11/06/21 17:26 Cyanocobalamin 1,000 Mcg Tablet PO 1,000 mcg QPM MIMI Administration Docusate Sodium 100 mg 11/06/21 18:00 11/07/21 10:34 Docusate Sodium 100 Mg Capsule PO 100 mg BID MIMI Administration Enoxaparin Sodium 100 mg 11/07/21 06:00 11/07/21 05:12 Enoxaparin 100 Mg/Ml Syringe 1 mg/kg (100 mg) 100 mg SUBCUT Administration Q12H [facility] Sodium Chloride 500 mls @ 12 mls/hr 11/07/21 08:15 11/07/21 09:58 Sodium Chloride 3% IV 12 mls/hr .Q24H MIMI Administration Lisinopril 40 mg 11/07/21 06:00 11/07/21 05:12 Lisinopril 20 Mg Tablet PO 40 mg QAM MIMI Administration Multivitamins Therapeutic 1 tab 11/07/21 06:00 11/07/21 05:12 Multivitamin Therapeutic Tablet PO 1 tab QAM MIMI Administration Pantoprazole Sodium 40 mg 11/07/21 09:00 11/07/21 10:[address] 40 Mg Tablet PO 40 mg DAILY MIMI Administration PFSH Acute PFSH: Medical History Atherosclerosis of coronary artery GERD (gastroesophageal reflux disease) Hyperlipidemia Hypertension Surgical History History of appendectomy History of cataract surgery History of hip replacement History of knee replacement Family History Mother Cancer Father Cancer Social History Quit status (tobacco): has quit using tobacco Alcohol intake: current Alcohol intake frequency: few times a week Alcohol type: beer Adopted: No Caregiver/support person: No Lives independently: No Household members: spouse Marital status: Current occupational status: retired History of recent travel: No Sexually active: Yes Current gender identity: Male Vitals/I&O/Wt Last Vital Signs Temp 97.8 F 11/07/21 07:14 Pulse 69 11/07/21 08:39 Resp 18 11/07/21 07:14 BP 100/60 11/07/21 08:39 Pulse Ox 95 11/07/21 07:14 11/06/21 11/07/21 11/07/21 22:59 06:59 14:59 Intake Total 457 / 457 200 / 657 Balance 457 / 457 200 / 657 Weight last 48 hrs Weight 95.254 kg Physical Exam Narrative: NARD vs stable heent- nc/at, eomi, anicteric neck supple lungs clear heart reg abd soft, nt, nd, + bs ext - non pitting edema neuro- a,a, o x 3 mood normal no rashes noted Data : 11/07/21 02:38 11/07/21 02:38 A&P Assessment and plan (1) Hyponatremia: Status: Acute Plan 71 yr old male 1. CP per medicine and cardiology 2. hyponatremia- was on lasix at home, and recieved NS ivf and still ur na 49 -recs- check tsh, am cortisol level -free water restrict repeat ur na, osm, cr -restart ns at 80 ml/hr -check chemistries q 6 hrs 3. hypotension- hold amlodipine. which likel contributed to his edema seen and examined w/ RN - telehealth visit informed consent for telehealth obtained from pt discussed w/ Dr. Ainsley Christian time spent 50+ min Consult Attestations Medical Necessity Statement: CP, hyponatremia Time Spent in Patient Care: Greater than 35 minutes (>than 50% of time spent in counselling and/or direct pt care on unit). Coding Level of Care Code Acute Retail Analytics Manager for Lyndsey Salguero Diagnoses Hyponatremia E87.1
[2021-11-07 12:41] LABS: Potassium, Radom Urine 24 mmol/L; Urine Creatinine 44 mg/dL (39-259); Urine Random Sodium 27 mmol/L
[2021-11-07 12:42] LABS: Urine Random Chloride 19 mmol/L
[2021-11-07 13:28] LABS: Sodium 126 mmol/L (136-145)
[2021-11-07 13:30] LABS: Cortisol Random 16.51 ug/dL (2.47-19.5)
[2021-11-07 14:54] LABS: Sodium 126 mmol/L (136-145)
[2021-11-07 15:58] LABS: Osmolality Urine 225 mOsm/kg (50-1200)
[2021-11-07 15:58] LABS: Osmolality Serum 262 mOsm/kg (278-305)
[2021-11-07 17:05] LABS: Sodium 126 mmol/L (136-145)
[2021-11-07] MEDS: cyanocobalamin 1,000 mcg Tablet 1000 MCG PO (17:59)
[2021-11-07] MEDS: atorvastatin 40 mg Tablet 80 MG PO (17:59)
[2021-11-07] MEDS: clopidogrel 75 mg Tablet PO (17:59)
[2021-11-07] MEDS: sodium chloride 0.9% 1,000 ML 100 ML IV (18:18)
[2021-11-07] MEDS: ibuprofen 200 mg Tablet 400 MG PO (18:45)
[2021-11-07 19:30] LABS: Sodium 126 mmol/L (136-145)
[2021-11-08] VITALS (14 sets, daily range): BP systolic 108–139; BP diastolic 68–97; PULSE 74–108; RESP 7–21; TEMP 36–36.8; O2SAT 91–97
[2021-11-08 01:53] LABS: Anion Gap 13.2 (5-19); Blood Urea Nitrogen 22 mg/dL (8-23); Carbon Dioxide 24 mmol/L (22-29); Chloride 94 mmol/L (98-107); Glucose 101 mg/dL (65-115); Osmolality Calculated 267 mOsm/kg (285-295); Potassium 4.2 mmol/L (3.5-5.1); Sodium 127 mmol/L (136-145)
[2021-11-08 02:01] LABS: Cortisol Random 6.14 ug/dL (2.47-19.5)
[2021-11-08] MEDS: lisinopril 20 mg Tablet 40 MG PO (05:09)
[2021-11-08] MEDS: aspirin 81 mg EC Tablet PO (05:09)
[2021-11-08] MEDS: ibuprofen 200 mg Tablet 400 MG PO ×2 (05:09→11:17)
[2021-11-08] MEDS: multivitamin therapeutic Tablet 1 TAB PO (05:09)
[2021-11-08] MEDS: sodium chloride 0.9% 1,000 ML 75 ML IV (05:10)
[2021-11-08] MEDS: enoxaparin 100 mg/mL Syringe SUBCUT (05:10)
[2021-11-08 07:55] LABS: Anion Gap 13.3 (5-19); Blood Urea Nitrogen 17 mg/dL (8-23); Calcium 9.5 mg/dL (8.5-10.5); Carbon Dioxide 25 mmol/L (22-29); Chloride 96 mmol/L (98-107); Glucose 99 mg/dL (65-115); Osmolality Calculated 272 mOsm/kg (285-295); Potassium 4.3 mmol/L (3.5-5.1); Sodium 130 mmol/L (136-145)
[2021-11-08] MEDS: docusate sodium 100 mg Capsule PO (08:29)
[2021-11-08] MEDS: pantoprazole DR 40 mg Tablet PO (08:29)
--- NOTE | 2021-11-08 10:11 | PC.CHAP ---
Pastoral Care Encounter/Spiritual Assessment Type of Contact [] Declined manager printing visit [] Patient/Family/Request visit [] Outpatient visit [] Follow-up visit [] Physician referral [] Code/Alert [x] Routine visit [] Staff referral [] Actively dying [] Patient sleeping [] Family support [] [] Out of room [] Palliative care [] [] Receiving care in room [] Pre-surgical visit [] Trauma [] Long length of stay [x] ICU visit [] Other: Relational/Emotional Strength [] Patient feels connected with others/family/visitors/staff [] Distress [] Loneliness/isolation [] Abandonment Spirituality of Patient [] Person of Staci [] Attends Hoahaoism of their Staci [] Believes in Prayer [] Reads Bible or Zoroastrian materials [] There are Spiritual issues to be addressed Hide Cleaner Interventions [x] Prayer [x] Active listening [x] Non-anxious presence [x] Spiritual/emotional support [] Crisis/trauma care [] Spiritual counseling [] Bereavement support [] Provided bereavement packet [] Provided Bible/devotional materials [] Provided toy/stuffed animal, coloring book to patient or family member [] Provided Communion [] Anointing/[place] [] Salvation [x] Completed spiritual assessment [] Other: Impact on Illness or Injury [] Angry [] Fearful [] Anxious [] Often cries [] Exhaustion [] Unable to work [] Unable to attend congregational [] Unable to walk/stand [] Unable to read [] Unable to drive [] Unable to eat/drink [] Unable to sleep [] Unable to be with family [] Patient intubated [] Other: Summary Time spent with patient
--- NOTE | 2021-11-08 10:14 | P.PN_ITS ---
Subjective Subjective: Mr. Mg feels well and has no specific complaints today. No chest pain, palpitations, shortness of breath. Sodium level essentially nice overnight. 3% saline now stopped. Eating and drinking well. Vitals/I&O/Wt Last Vital Signs Temp 98.0 F 11/08/21 00:00 Pulse 74 11/08/21 05:47 Resp 14 11/08/21 05:00 BP 116/70 11/08/21 05:00 Pulse Ox 94 11/08/21 05:00 11/07/21 11/08/21 11/08/21 22:59 06:59 14:59 Intake Total 604 / 604 1360.000 / 1964.000 Output Total 1250 / 1850 1075 / 2925 Balance -646 / -1246 285.000 / -961.000 Physical Exam Narrative: Constitutional: Awake, comfortable HEENT: Wet mucosa, no jvp, non icteric Lungs: Bilaterally clear without discernible wheeze, rales in all lung zones CVS: S1 S2, no murmurs Abdo: Soft, BS ok Ext 4: Minimal edema, peripheral perfusion with no cyanosis Neurological: Grossly non-focal Data : 11/07/21 02:38 11/08/21 07:15 A&P Assessment and plan (1) Hyponatremia: Status: Acute Plan 1. Euvolemic hyponatremia Appropriately dilute serum osmolality, low random cortisol but not diagnostic of adrenal insufficiency and no other features of adrenal insufficiency. Likely to be an element of beer potomania as well as intravascular volume depletion from Lasix. Sodium levels now in a safe range for discharge. All IV fluids off. Continue free water restriction of 1500 mL. Oral intake of solid is encouraged. 2. Acute coronary syndrome is now ruled out. 3. Disposition Okay for discharge from my perspective, okay to follow with outpatient primary care provider in 1-2 weeks with outpatient labs. Pepe Chery MD Nephrology [phone] Patient seen and examined via telemedicine, with the assistance of the bedside RN > 25 min spent in evaluation and mgmt of patient Attestations Medical Necessity Statement*: hypona Coding Level of Care Code Acute Business Info Consultant for Chg Fwd Diagnoses Hyponatremia E87.1
--- NOTE | 2021-11-08 11:22 | P.DS_ITS ---
Discharge Providers Date of Admission: 11/07/21 10:51 Date of Discharge: November 08, 2021 Attending Provider at Admission: Ainsley Christian MD Attending Provider at Discharge: Ainsley Christian MD Primary Care Provider: AURY Aragon Diagnoses at Discharge Discharge Diagnosis (1) Hyponatremia: Status: Acute Reason for Visit Reason for Visit: chest pains/throat tightness Brief History: Nino Mg Jr is a 71 year old male with past medical history of CAD, GERD, hypertension, hyperlipidemia presenting for chest pain that has been going on intermittently since 4 this morning.? Also he states for the last few weeks he has had the same thing intermittently as well but now it has worsened.? The pain last 10 to 15 seconds in the right lower sternal area and sometimes radiates to his neck and back as well.? He describes it as a squeezing pressure deep in chest.? He denies any shortness of breath.? He denies any sweating.? He cannot really tell me if something makes it better or worse.? He usually takes his medications on time.? He says he is on a water pill and medication for blood pressure.? He says he took his medications today.? He also said he had an angiogram about a year ago.? He does not believe he has any stents.? On chart review there is evidence of nonischemic coronary disease on cardiac cath 09/2020.? There was also a noncritical stenosis in proximal LAD.? He denies abdominal pain, nausea, vomiting, rash, throat pain, fever or chills.? Review of systems negative otherwise except noted in HPI.? Patient is a former smoker but no longer smokes.? He saw cardiology in April 2021.? His last echo was performed in September 2020 which showed EF 55 to 60% and grade 1 diastolic dy sfunction.? Mildly dilated ascending aorta. ED course: On arrival blood pressure 106/57 respiratory 15, pulse 60, temperature 98.4, pulse ox 98% on room air.? EKG did not show acute ischemia.? Troponins negative so far.? Heart score 6.? Hospitalist was called for admission. Hospital Course Hospital Course Patient was initially admitted for chest pressure that was going on since the morning at 4 AM. He stated it came on intermittently and since it had worsened he came to the hospital. A year ago he had angiogram done which showed moderate disease in LAD 40%. Patient said the chest pain lasted 10 to 15 seconds and also was radiating to his neck and back. He describes it as a squeezing pressure in his chest. Patient did receive 4 mg morphine in the ER and he felt little better and Nitropaste was placed. After patient got admitted he continued to complain of pain at which point GI cocktail was given to him and it did not improve the pain. Later on morphine was again given which did not improve the pain. At that point he was loaded with Plavix given therapeutic dose Lovenox and cardiology was called. Troponins were negative. Patient kept complaining of persistent chest pain. CTA chest was done to rule out underlying aortic dissection which was negative. In the morning stress test was performed which came back as negative. Echocardiogram was also done which did not show any wall motion abnormalities. Grade 1 diastolic dysfunction present. He was recommended medical management and to be discharged with follow-up with cardiology as an outpatient and primary care as an outpatient. Also during hospital stay at admission patient was noted to be hyponatremic with sodium of 122. Urine studies were ordered and he was started on normal saline and sodium was rechecked. Sodium dropped further. Patient was not having neurological issues. It seems to be chronic hyponatremia. Patient was transferred to the ICU and required administration of 3% hypertonic normal saline. Nephrology was consulted. Eventually hyponatremia was corrected and patient was sent home in a stable condition. Patient's diuretics were held during hospital stay. Also he was advised to have a fluid restriction of 1500 cc a day. He is to have repeat labs in a week and follow-up with his primary care doctor outpatient. 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 They were repeated later on as well. Random cortisol level was low which was not diagnostic of adrenal rate insufficiency and no other features of adrenal insufficiency present. Patient does drink beer and this may have been an element of beer potomania as well as intravascular volume depletion from Lasix. He was cleared for discharge from nephrology standpoint and discharged home. Additionally patient did complain of back pain during hospital stay which she stated was not the same pain he came in with. After examination and discussion with him he attributed it to the hospital mattress being uncomfortable. Positional change did make the pain better. Physical Exam Narrative: General: Alert oriented x3, patient seen sitting up in bed with present at bedside HEENT: Normocephalic, atraumatic, EOMI, breathing normally Cardio: Regular rate rhythm, normal S1-S2, no murmurs, Respiratory: Good bilateral air entry, no wheezes no rhonchi appreciated GI: Abdomen soft, nontender, bowel sounds + Behavior: Appropriate and cooperative Extremities:no edema noted b/l LE, no cyanosis Discharge Data Studies Completed and Pending Completed Studies During Hospitalization Category Date Time Status CT angio chest abdomen pelvis Stat Cat Scan 11/06/21 18:01 Completed Sestamibi Stress Test Request Routine Exams 11/06/21 14:40 Completed XR chest 1V portable [id number] Stat Exams 11/06/21 09:03 Completed NM carmen perf SPECT r/s* [id number] Routine Nuc Med 11/07/21 Completed CV. echo complete* [id number] Urgent Ultrasound 11/06/21 15:33 Completed Pending at discharge Category Date Time Status BMP [Basic Metabolic Panel] Q6H Lab 11/08/21 12:59 Ordered BMP [Basic Metabolic Panel] Q6H Lab 11/08/21 18:59 Ordered BMP [Basic Metabolic Panel] Q6H Lab 11/09/21 00:00 Ordered BMP [Basic Metabolic Panel] Q6H Lab 11/09/21 06:00 Ordered BMP [Basic Metabolic Panel] Q6H Lab 11/09/21 12:00 Ordered BMP [Basic Metabolic Panel] Q6H Lab 11/09/21 18:00 Ordered Vitamin D 1,25 Dihydroxy Routine Lab 11/07/21 16:03 Received Radiology Impressions Chest X-Ray 11/06/21 09:03 IMPRESSION: Stable chest with no acute abnormality. Chest/Abdomen/Pelvis CTA 11/06/21 18:01 IMPRESSION: 1. Abdominal aorta intact, negative for acute inflammatory process in the abdomen or pelvis. 2. Ascending thoracic aorta is prominent measuring 3.9 cm without findings of rupture. 3. Several benign hepatic cysts. 4. Bilateral benign renal cysts. 5. Bilateral nonobstructing renal calyceal stones. 6. Right hip arthroplasty changes. 7. Coronary artery atherosclerotic calcifications. Laboratory Results WBC 6.2 10^3/uL (4.0-10.0) 11/07/21 02:38 RBC 3.23 10^6/uL (4.1-5.3) L 11/07/21 02:38 Hgb 10.4 g/dL (11.7-16.6) L 11/07/21 02:38 Hct 30.3 % (42.0-52.0) L 11/07/21 02:38 MCV 93.8 fl (80-94) 11/07/21 02:38 MCH 32.2 pg (28.0-34.0) 11/07/21 02:38 MCHC 34.3 g/dL (30.0-36.0) 11/07/21 02:38 RDW 12.2 % (12.1-15.1) 11/07/21 02:38 Plt Count 286 10^3/cmm (130-400) 11/07/21 02:38 MPV 9.7 fL (7.4-10.4) 11/07/21 02:38 Neut % (Auto) 48.4 % 11/07/21 02:38 Lymph % (Auto) 27.3 % 11/07/21 02:38 Braxton % (Auto) 14.6 % 11/07/21 02:38 Eos % (Auto) 8.4 % 11/07/21 02:38 Baso % (Auto) 1.0 % 11/07/21 02:38 Neut # (Auto) 2.99 10^3/uL (1.8-7.7) 11/07/21 02:38 Lymph # (Auto) 1.7 10^3/uL (0.8-4.8) 11/07/21 02:38 Braxton # (Auto) 0.9 10^3/uL (0.2-0.9) 11/07/21 02:38 Eos # (Auto) 0.5 10^3/uL (0.0-0.8) 11/07/21 02:38 Baso # (Auto) 0.1 10^3/uL (0.0-0.1) 11/07/21 02:38 Nucleated RBC % (auto) 0 % 11/07/21 02:38 Nucleated RBCs # 0.0 /100WBC 11/07/21 02:38 Sodium 130 mmol/L (136-145) L 11/08/21 07:15 Potassium 4.3 mmol/L (3.5-5.1) 11/08/21 07:15 Chloride 96 mmol/L (98-107) L 11/08/21 07:15 Carbon Dioxide 25 mmol/L (22-29) 11/08/21 07:15 Anion Gap 13.3 (5-19) 11/08/21 07:15 BUN 17 mg/dL (8-23) 11/08/21 07:15 Creatinine 0.8 mg/dL (0.7-1.2) 11/08/21 07:15 GFR Calculation Not Reportable 11/08/21 07:15 Glucose 99 mg/dL (65-115) 11/08/21 07:15 Estimat Average Glucose 88 11/06/21 09:22 Hemoglobin A1c 4.7 % (4.0-6.0) 11/06/21 09:22 Serum Osmolality 262 mOsm/kg (278-305) L 11/06/21 15:34 Calculated Osmolality 272 mOsm/kg (285-295) L 11/08/21 07:15 Uric Acid Cancelled 11/07/21 11:05 Calcium 9.5 mg/dL (8.5-10.5) 11/08/21 07:15 Magnesium 2.0 mg/dL (1.7-2.3) 11/06/21 15:34 Total Bilirubin Cancelled 11/07/21 11:05 AST Cancelled 11/07/21 11:05 ALT Cancelled 11/07/21 11:05 Alkaline Phosphatase Cancelled 11/07/21 11:05 Troponin T Baseline 11 ng/L (0-15) 11/06/21 09:22 Troponin T 120 Minute 11.66 ng/L (0-15) 11/06/21 11:22 Delta Troponin T 0.66 ABS# (0-10) 11/06/21 11:22 Troponin T Hi Sens 6Hr 11.26 ng/L (0-15) 11/06/21 15:34 Troponin T Hi Sens 6Hr Delta 0.26 ng/L (0-12) 11/06/21 15:34 NT-Pro-B Natriuret Pep 135 pg/mL (0-125) H 11/06/21 15:34 Total Protein Cancelled 11/07/21 11:05 Albumin Cancelled 11/07/21 11:05 Globulin Cancelled 11/07/21 11:05 Triglycerides 88 mg/dL (0-150) 11/06/21 15:34 Cholesterol 183 mg/dL (0-200) 11/06/21 15:34 LDL Cholesterol, Calc 73 mg/dL (50-129) 11/06/21 15:34 HDL Cholesterol 92 mg/dL (60-100) 11/06/21 15:34 LDL/HDL Ratio 0.79 RATIO (0.00-3.22) 11/06/21 15:34 Cholesterol/HDL Ratio 1.99 mg/dL (1.0-5.00) 11/06/21 15:34 TSH Cancelled 11/07/21 11:05 Random Cortisol 6.14 ug/dL (2.47-19.5) 11/08/21 00:59 Urine Osmolality 225 mOsm/kg (50-1200) 11/06/21 15:11 Ur Random Sodium 27 mmol/L 11/07/21 11:52 Ur Random Potassium 24 mmol/L 11/07/21 11:52 Ur Random Chloride 19 mmol/L 11/07/21 11:52 Urine Creatinine 44 mg/dL (39-259) 11/07/21 11:52 Vitals Last Vital Signs Temp 98.0 F 11/08/21 00:00 Pulse 74 11/08/21 05:47 Resp 14 11/08/21 05:00 BP 116/70 11/08/21 05:00 Pulse Ox 94 11/08/21 05:00 Discharge Plan Discharge Patient Disposition: Home Condition: Stable Prescriptions: New atorvastatin 40 mg Tablet 20 mg PO QD@1900 30 Days Qty: 30 0RF docusate sodium 100 mg Capsule 100 mg PO BID PRN (Reason: constipation) 14 Days Qty: 28 0RF Rx Instructions: hold if loose stools Continued multivitamin Tablet 1 tab PO QAM 0RF aspirin [Aspirin Low Dose] 81 mg tablet,delayed release (DR/EC) 81 mg PO QAM 0RF Zyrtec 10 mg Tablet 10 mg PO DAILY PRN (Reason: Allergy Symptoms) 0RF iron bis glycinat-vit C-FA-B12 28 mg iron-60mg -400 mcg-8 mcg Capsule 1 cap PO QPM 0RF Vitamin B-12 1 tab PO QPM 0RF pantoprazole 40 mg tablet,delayed release (DR/EC) 40 mg PO DAILY PRN (Reason: Heartburn) 0RF lisinopril 40 mg tablet 40 mg PO QAM 0RF Changed Lasix 40 mg tablet 20 mg PO QAM Qty: 0 0RF Discontinued diltiazem HCl 120 mg capsule,extended release 12 hr 120 mg PO BID Qty: 180 3RF potassium gluconate 595 mg (99 mg) Tablet 595 mg PO QAM 0RF atorvastatin 10 mg tablet 10 mg PO QAM 0RF amlodipine 10 mg tablet 10 mg PO BEDTIME 0RF Discharge Orders: Discharge Order (Routine); Ordered 11/08/21 Ordered By: Ainsley Christian Other Ambulatory Orders: Basic Metabolic Panel (Routine) Timeframe: 1 Week Facility: [facility] - Location: Lab - Main Lab Ordered By: Ainsley Christian Referrals: Lars Cadena M.D [Physician] - 1 month ([facility] ,HAS SCHEDULED THIS FOLLOW UP APPOINTMENT FIRST APPOINTMENT WILL FOLLOW WITH NIGHAT MARIEE APN NURSE AT [facility] , Thursday AT TIME OF 12:45 PLEASE NOTE THAT YOU HAVE A FOLLOW UP WITH SCHEDULED -JANUARY 31, 2022 AT 10:15 AM THIS WAS ONLY APPOINTMENT AVAILBLE FOR FOR 1 MONTH ,AND TOO MUCH OF A TIME LAPSE FOR YOU NOT TO FOLLOW TO SEE . THIS IS THE NIGHAT MARIEE FOLLOW UP APPOINTMENTFOR DECEMBER 03 12:45) Varun Leach FNP [Primary Care Provider] - 4-7 days (THURSDAY. 14 NOVEMBER AT TIME OF 09:30.) Discharge Diet: Cardiac Discharge Activity: Resume usual activity Patient Instructions: Atorvastatin (By mouth), Laxative, Stimulant Combination (By mouth) (Mariely-Colace, Doc-Q-Lax,..., Docusate (Into the rectum) (Docusol, DocuSol Kids, Enemeez Mini Enema), Hyponatremia (DC), Hyperlipidemia (DC), Chest Pain Stoplight, Opioid Safety Activity Restrictions/Additional Instructions: Please do not take more than 1500 cc of fluids in a 24-hour period and that includes your coffee, tea, water, Gatorade, any form of liquid. ? During hospital stay her blood pressure has remained normal without amlodipine and her diltiazem. At discharge he was 116/70. He has not had any bouts of hypertension during hospital stay. I have stopped her amlodipine and your diltiazem at this time. You will continue to take her lisinopril. Please check your blood pressure at home twice a day. Keep a log sheet. If blood pressure starts to elevate over the next few days above 140/90 please restart your amlodipine 10 mg daily. Also when you follow-up with your primary care doctor take your blood pressure readings with you so further medication adjustments can be made. ? Please recheck your labs as discussed within 1 week of discharge and follow-up with your primary care doctor in regards to your sodium level. Discharge Attestations Time Spent in Discharge Care*: less than 30 min Quality Metrics Clinical Quality Measures [ No reported AMI, CVA or VTE this stay] Coding Level of Care Code Acute Chg FW DC note Diagnoses Hyponatremia E87.1
--- NOTE | 2021-11-08 11:26 | PM.PN ---
Subjective Subjective: Patient is doing well. Denies chest pain today Vitals/I&O/Wt Last Vital Signs Temp 98.0 F 11/08/21 00:00 Pulse 74 11/08/21 05:47 Resp 14 11/08/21 05:00 BP 116/70 11/08/21 05:00 Pulse Ox 94 11/08/21 05:00 11/07/21 11/08/21 11/08/21 22:59 06:59 14:59 Intake Total 604 / 604 1360.000 / 1964.000 390 / 390 Output Total 1250 / 1850 1075 / 2925 475 / 475 Balance -646 / -1246 285.000 / -961.000 -85 / -85 Physical Exam Narrative: GENERAL: Patient is alert, awake and oriented x3. [] NECK: No jugular vein distension. [] HEENT: No cyanosis. No icterus. No pallor. [] HEART: Regular S1 and S2. No murmur, rub or gallop. [] LUNGS: Clear to auscultate bilaterally. [] ABDOMEN: Soft, nontender and nondistended. Positive bowel sounds. No guarding, rebound or tenderness. [] CENTRAL NERVOUS SYSTEM: Grossly nonfocal. [] EXTREMITIES: Lower extremities with 1+ edema bilaterally. Pulses palpable in the lower extremities, both dorsalis pedis and posterior tibial. [] Data : 11/07/21 02:38 11/08/21 07:15 A&P Assessment and plan (1) Chest pain: Patient's chest pain is atypical. EKG did not show significant changes. Stress test is normal. Will recommend medical therapy at this time. CTA of the chest did not reveal dissection. Does complain of pain on palpation of spine. Will discuss with medicine team for further evaluation. Status: Resolved (2) Atherosclerotic heart disease of [place] coronary artery with other forms of angina pectoris: Medical therapy for now as stress test is negative for ischemia. Status: Acute (3) Hyperlipidemia: May continue on the current medications. Status: Acute (4) Hypertension: The blood pressure is in the normal range at this time. May continue on the current medications. Status: Chronic (5) GERD (gastroesophageal reflux disease): May continue on the current medications. Based on the patient's clinical progress, further recommendations will be made. Thank you for the opportunity to eval this patient make these recommendation Status: Acute (6) Hyponatremia: Nephrology on board. Improving Status: Resolved Plan Patient is stable to be discharged from cardiology standpoint Attestations Medical Necessity Statement*: Care expected to cross 2 midnights. 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
--- NOTE | 2021-11-08 13:20 | PC.NURSE ---
Pt discharged after receiving discharge instructions, follow up appts and new medication list. Carenotes provided, pt preferred to read at home.
[2021-11-12 10:51] LABS: Vit D 1,25 (Oh)2, Total 33 pg/mL (18-72); Vit D2 1,25 (Oh)2 <8 pg/mL; Vit D3 1,25 (Oh)2 33 pg/mL
== END 2021-11-08 13:20 | disposition home or self-care (01) | DRG 641 ==
LOC: ER 13:02 → CSU 13:13 → ICU 11-07 09:09
PROVIDERS: Internal Medicine Nephrology; Admitting Provider Internal Medicine; Emergency Provider Family Medicine; PCP Registered Nurse; Visit Provider Internal Medicine
DX: E87.1 Hypo-osmolality and hyponatremia (principal); I25.119 Atherosclerotic heart disease of native coronary artery with unspecified angina pectoris; K21.9 Gastro-esophageal reflux disease without esophagitis; E78.5 Hyperlipidemia, unspecified; I10 Essential (primary) hypertension; Z87.891 Personal history of nicotine dependence; Z79.82 Long term (current) use of aspirin
CPT/HCPCS: 36415; 71045; 71275; 74174; 78452; 80048; 80053; 80061; 82436; 82533; 82570; 82652; 83036; 83735; 83880; 83930; 83935; 84133; 84295; 84300; 84484; 85025; 93005; 93017; 93306; 96372; 99285; A9500; G0378; J0280; J1650; J2270; J2785; J7030; J7131; Q3014; Q9967

== ENCOUNTER → 2021-11-14 10:06 | Outpatient (BNVA) | payer OTHER, SELFPAY | PROVIDERS: PCP Registered Nurse; Visit Provider Registered Nurse | DX: I10 Essential (primary) hypertension (principal); L25.9 Unspecified contact dermatitis, unspecified cause; E87.6 Hypokalemia | CPT/HCPCS: 80053; 85025 ==

== ENCOUNTER → 2021-12-03 12:55 | Outpatient (BNVA) | payer OTHER, SELFPAY | PROVIDERS: PCP Registered Nurse; Visit Provider Nurse Practitioner Family | DX: I25.118 Atherosclerotic heart disease of native coronary artery with other forms of angina pectoris (principal); I10 Essential (primary) hypertension; Z87.891 Personal history of nicotine dependence | CPT/HCPCS: 99213; 99214 ==

== ENCOUNTER → 2021-12-23 11:12 | Outpatient (BNVA) | payer OTHER, SELFPAY | PROVIDERS: PCP Registered Nurse; Visit Provider Registered Nurse | DX: R21 Rash and other nonspecific skin eruption (principal) | CPT/HCPCS: 88305; 88312 ==

== ENCOUNTER 2022-01-24 07:28 | Outpatient (CLI) | payer MEDICARE, OTHER, SELFPAY ==
--- NOTE | 2022-01-24 07:43 | USCV_ITS ---
Nino Mg Age: 71 Gender: M : 1950 Exam Date: 01/24/2022 07:55 Ordering Phys: Marla Ponce MD Technologist: Xiao Hooper [place] [facility] [place]: screening, controlle HTN HISTORY: Diameter (cm) AP x Transverse x Length Velocity (cm/s) Waveform Prox Aorta: 1.82 x 2.62 x 60.20 Mid Aorta: 1.82 x 2.21 x 81.60 Distal Aorta: 1.84 x 2.05 x 77.30 Right Iliac Prox: 1.00 x 1.15 x 68.80 Left Iliac Prox: 0.93 x 0.88 x 63.40 Stent Prox Landing x x Aneurysmal Sac Max x x Lt Lat Sac Dim Rt Lat Sac Dim Stent Dist Landing x x Right Iliac Stent x x Left Iliac Stent x x Right Renal Art Left Renal Art FINDINGS: Normal aortic dimensions Normal arterial Doppler flow velocities Normal proximal common iliac artery dimensions CONCLUSIONS #1. No evidence of any abdominal aortic aneurysm, based on the above findings #2. No significant stenosis or aneurysm in the proximal common iliac arteries Dr Christy Rogers MD [facility] (Electronically Signed) Final Date: 27 January 2022 20:59 S
== END 2022-01-24 07:29 | disposition home or self-care (01) ==
PROVIDERS: PCP Registered Nurse; Visit Provider Family Medicine
DX: Z13.6 Encounter for screening for cardiovascular disorders (principal); I10 Essential (primary) hypertension
CPT/HCPCS: 76706

== ENCOUNTER → 2022-01-31 10:20 | Outpatient (BNVA) | payer OTHER, SELFPAY | PROVIDERS: PCP Registered Nurse; Visit Provider Internal Medicine | DX: R07.9 Chest pain, unspecified (principal); I10 Essential (primary) hypertension; E78.5 Hyperlipidemia, unspecified; Z87.891 Personal history of nicotine dependence | CPT/HCPCS: 99214 ==

== ENCOUNTER 2022-03-17 06:53 | Day surgery (SDC) | payer OTHER, SELFPAY ==
[2022-03-13 12:50] VITALS: BMI 32.8
[2022-03-17 07:17] VITALS: BP 146/82; PULSE 80; RESP 18; TEMP 36.4; O2SAT 98
[2022-03-17] MEDS: sodium chloride 0.9% 1,000 ML 30 ML IV (07:28)
--- NOTE | 2022-03-17 07:45 | ANES.PREANE2 ---
Pre-Anesthetic Assessment Height/Weight: Height 1.7 m Weight 95.254 kg Temp Pulse Resp BP Pulse Ox O2 Del Method 97.5 F L 80 18 146/82 98 03/17/22 07:17 03/17/22 07:17 03/17/22 07:17 03/17/22 07:17 03/17/22 07:17 03/17/22 07:17 Preop Diagnosis: screening polyps Operation Date: 03/17/22 08:30 Proposed Procedures p Colonoscopy 93696,Z86.010(Not Applicable) - Michael Rodriguez MD Familial anesthetic complications: None Was Beta Marissa taken within 24 hours: N/A Was Clonidine taken within 24 hours: N/A Last intake: Intake Last Liquid Date 03/16/22 Last Liquid Time 19:00 Last Solid Date 03/22/22 Last Solid Time 15:00 Social Alcohol (couple drinks a week) and No tobacco Exam alert, oriented x 3, clear to auscultation bilaterally and regular rate & rhythm Airway Mallampati: Class II Dentition: false CV/HEM Coronary Artery Disease and Hypertension GI Gastroesophageal Reflux Disease Metabolic Hyperlipidemia Anesthetic Plan ASA status: 3 Anesthesia: MAC Risk of > 500 ml blood loss (7ml/kg in children): No Medications/Allergies Home Medications Medication Instructions Recorded Confirmed Last Taken Type multivitamin 1 tab PO QAM 02/24/20 03/17/22 03/16/22 History aspirin 81 mg tablet,delayed 81 mg PO QAM 08/24/20 03/17/22 03/10/22 History release (Wai Low Dose Aspirin) Vitamin B-12 1 tab PO QPM 11/06/21 03/17/22 03/16/22 History cetirizine 10 mg tablet (Zyrtec) 10 mg PO DAILY PRN Allergy Symptoms 11/06/21 03/17/22 03/16/22 History iron bis glycinate josseline 28 mg 1 cap PO QPM 11/06/21 03/13/22 11/05/21 History iron-vit C 60 mg-FA 400 mcg-B12 8mcg cap pantoprazole 40 mg tablet,delayed 40 mg PO DAILY PRN Heartburn 11/06/21 03/17/22 03/16/22 History release amlodipine 10 mg tablet 10 mg PO DAILY 11/14/21 03/17/22 03/16/22 History [id number]/DIPHENHYDRAMINE 25MG 1 tab PO BEDTIME 12/19/21 03/17/22 03/16/22 History ibuprofen 400 mg tablet 400 mg PO Q12H PRN Pain 12/19/21 03/17/22 03/04/22 History lidocaine 5 % topical ointment 1 applic topical QID PRN muscle 12/19/21 03/17/22 03/05/22 History spasms miconazole nitrate 2 % topical 1 applic topical DAILY 12/19/21 03/17/22 Unknown History cream tramadol 50 mg tablet 50 mg PO DAILY PRN Pain 12/19/21 03/13/22 Unknown History lisinopril 40 mg tablet 40 mg PO QAM #90 tabs 12/27/21 03/17/22 03/16/22 Rx atorvastatin 20 mg tablet 20 mg PO QD@1900 #90 tabs 02/10/22 03/17/22 03/16/22 Rx dupilumab 300 mg/2 mL subcutaneous 300 mg SUBCUT DIRECTED 02/27/22 03/17/22 03/12/22 History pen injector (Dupixent) Allergies Allergy/AdvReac Type Severity Reaction Status Date / Time No Known Allergies Allergy Verified 03/17/22 07:09 Current Medications Generic Name Dose Route Start Last Admin Trade Name Freq PRN Reason Stop Dose Admin Sodium Chloride 1,000 mls @ 30 mls/hr 03/17/22 07:30 03/17/22 07:28 Sodium Chloride 0.9% IV 03/18/22 07:29 30 mls/hr .Q24H MIMI Administration PFSH Anesthesia Medical History Atherosclerosis of coronary artery GERD (gastroesophageal reflux disease) Hyperlipidemia Hypertension Surgical History History of appendectomy History of cataract surgery History of hip replacement History of knee replacement Family History Mother Cancer Father Cancer Social History Smoking and tobacco status: former smoker Quit status (tobacco): has quit using tobacco Alcohol intake: current Alcohol intake frequency: few times a week Alcohol type: beer Adopted: No Caregiver/support person: No Lives independently: No Household members: spouse Marital status: Current occupational status: retired History of recent travel: No Sexually active: Yes Current gender identity: Male Data Anesthesia Cardiac Studies: Echocardiogram 11/06/21 Echocardiogram Ultrasound 09/28/20 Sestamibi Stress Test (Cardiology) 11/06/21
--- NOTE | 2022-03-17 08:01 | P.HP_ITS ---
Same Day Surgery H&P Indication for Procedure/HPI DATE OF PROCEDURE: March 17, 2022 CHIEF COMPLAINT/INDICATIONFOR SURGICAL PROCEDURE: Personal history of colon polyps PREOP DIAGNOSIS: screening polyps PLANNED PROCEDURE: Operation Date: 03/17/22 08:30 Proposed Procedures p Colonoscopy 67899,Z86.010(Not Applicable) - Michael Rodriguez MD Medications/Allergies* Home Medications Medication Instructions Recorded Confirmed Type multivitamin 1 tab PO QAM 02/24/20 03/17/22 History aspirin 81 mg tablet,delayed 81 mg PO QAM 08/24/20 03/17/22 History release (Wai Low Dose Aspirin) Vitamin B-12 1 tab PO QPM 11/06/21 03/17/22 History cetirizine 10 mg tablet (Zyrtec) 10 mg PO DAILY PRN Allergy Symptoms 11/06/21 03/17/22 History iron bis glycinate josseline 28 mg 1 cap PO QPM 11/06/21 03/13/22 History iron-vit C 60 mg-FA 400 mcg-B12 8mcg cap pantoprazole 40 mg tablet,delayed 40 mg PO DAILY PRN Heartburn 11/06/21 03/17/22 History release amlodipine 10 mg tablet 10 mg PO DAILY 11/14/21 03/17/22 History [id number]/DIPHENHYDRAMINE 25MG 1 tab PO BEDTIME 12/19/21 03/17/22 History ibuprofen 400 mg tablet 400 mg PO Q12H PRN Pain 12/19/21 03/17/22 History lidocaine 5 % topical ointment 1 applic topical QID PRN muscle 12/19/21 03/17/22 History spasms miconazole nitrate 2 % topical 1 applic topical DAILY 12/19/21 03/17/22 History cream tramadol 50 mg tablet 50 mg PO DAILY PRN Pain 12/19/21 03/13/22 History dupilumab 300 mg/2 mL subcutaneous 300 mg SUBCUT DIRECTED 02/27/22 03/17/22 History pen injector (Dupixent) Allergies/Adverse Reactions Allergy/AdvReac Type Severity Reaction Status Date / Time No Known Allergies Allergy Verified 03/17/22 07:09 Current Medications: Generic Name Dose Route Start Last Admin Trade Name Freq PRN Reason Stop Dose Admin Sodium Chloride 1,000 mls @ 30 mls/hr 03/17/22 07:30 03/17/22 07:28 Sodium Chloride 0.9% IV 03/18/22 07:29 30 mls/hr .Q24H MIMI Administration Pertinent History/Comorbid Conditions* Medical History (Updated 03/03/22 @ 21:02 by AURY Aragon) Atherosclerosis of coronary artery GERD (gastroesophageal reflux disease) Hyperlipidemia Hypertension Surgical History (Updated 09/06/20 @ 21:24 by Lars Cadena M.D) History of appendectomy History of cataract surgery History of hip replacement History of knee replacement Family History (Updated 02/24/20 @ 10:49 by Valerie Ventura LPN) Cancer Mother Father Social History Smoking and tobacco status: former smoker Quit status (tobacco): has quit using tobacco Alcohol intake: current Alcohol intake frequency: few times a week Alcohol type: beer Adopted: No Caregiver/support person: No Lives independently: No Household members: spouse Marital status: Current occupational status: retired History of recent travel: No Sexually active: Yes Current gender identity: Male Pertinent Exam Findings alert, oriented x 3, clear to auscultation bilaterally, regular rate & rhythm, operative site marked and procedure specific exam findings Recommendations Surgery/Procedure today Coding Level of Care Code Acute Ostomy Care Nurse for Lyndsey Salguero
[2022-03-17 09:37] VITALS: BP 112/71; PULSE 65; RESP 16; TEMP 36.1; O2SAT 98
[2022-03-17 09:48] VITALS: BP 126/82; PULSE 71; RESP 18; O2SAT 97
--- NOTE | 2022-03-17 14:08 | ANE.PACU2 ---
Inpatient post-anesthesia follow up: Airway intact: Yes Vital signs: Temperature 97.0 F Pulse Rate 71 Respiratory Rate 18 Blood Pressure 126/82 Pulse Oximetry 97 Oxygen Delivery Me thod Room Air Oxygen Flow Rate Fraction of Inspir ed Oxygen Hydration adequate: Yes Nausea and vomiting: No Pain level: 1 Mental status: Baseline
== END 2022-03-17 10:05 | disposition home or self-care (01) ==
PROVIDERS: PCP Registered Nurse; Visit Provider Internal Medicine
PROC: 0DJD8ZZ Inspection of Lower Intestinal Tract, Via Natural or Artificial Opening Endoscopic (ICD-10-PCS; CPT 45378; principal; 2022-03-17 08:30)
DX: Z12.11 Encounter for screening for malignant neoplasm of colon (principal); Z86.010 Personal history of colon polyps; D12.2 Benign neoplasm of ascending colon; Z79.82 Long term (current) use of aspirin; K21.9 Gastro-esophageal reflux disease without esophagitis; E78.5 Hyperlipidemia, unspecified; I10 Essential (primary) hypertension; Z87.891 Personal history of nicotine dependence; I25.10 Atherosclerotic heart disease of native coronary artery without angina pectoris
CPT/HCPCS: 45385; J2704; J7030

== ENCOUNTER → 2022-10-31 09:35 | Outpatient (BNVA) | payer OTHER, SELFPAY | PROVIDERS: PCP Registered Nurse; Visit Provider Internal Medicine | DX: I25.10 Atherosclerotic heart disease of native coronary artery without angina pectoris (principal); I10 Essential (primary) hypertension; E78.5 Hyperlipidemia, unspecified; Z87.891 Personal history of nicotine dependence; Z79.82 Long term (current) use of aspirin | CPT/HCPCS: 99214 ==

== ENCOUNTER → 2023-03-04 10:48 | Outpatient (BNVA) | payer MEDICARE, SELFPAY | PROVIDERS: PCP Registered Nurse; Visit Provider Registered Nurse | DX: I25.118 Atherosclerotic heart disease of native coronary artery with other forms of angina pectoris (principal); Z00.00 Encounter for general adult medical examination without abnormal findings | CPT/HCPCS: 80053; 80061; 85025 ==

== ENCOUNTER → 2023-04-17 10:30 | Outpatient (BNVA) | payer MEDICARE, SELFPAY | PROVIDERS: PCP Registered Nurse; Visit Provider Otolaryngology | DX: H61.23 Impacted cerumen, bilateral (principal); H81.10 Benign paroxysmal vertigo, unspecified ear; H69.83 Other specified disorders of Eustachian tube, bilateral; H93.13 Tinnitus, bilateral | CPT/HCPCS: 69210; 99204 ==

== ENCOUNTER 2023-04-28 06:00 | Outpatient (RCR) | payer MEDICARE, SELFPAY | END 2023-04-28 23:59 | disposition home or self-care (01) | LOC: WPT 06:00 | PROVIDERS: PCP Registered Nurse; Visit Provider Registered Nurse | DX: H81.10 Benign paroxysmal vertigo, unspecified ear (principal) | CPT/HCPCS: 97162 ==

== ENCOUNTER 2023-04-29 06:00 | Outpatient (RCR) | payer MEDICARE, SELFPAY | END 2023-05-28 23:59 | disposition home or self-care (01) | LOC: WPT 06:00 | PROVIDERS: PCP Registered Nurse; Visit Provider Registered Nurse | DX: H81.10 Benign paroxysmal vertigo, unspecified ear (principal) | CPT/HCPCS: 97110; 97112; 97530 ==

== ENCOUNTER 2023-06-07 19:13 | Emergency (ER) | payer MEDICARE, SELFPAY ==
[2023-06-07] VITALS (8 sets, daily range): BP systolic 121–171; BP diastolic 73–82; PULSE 73–86; RESP 16–24; TEMP 36.4; O2SAT 93–97; BMI 34.1
--- NOTE | 2023-06-07 19:17 | ECG_ITS ---
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 Measurements Intervals [place] Rate: 96 P: 52 FL: 202 QRS: 58 QRSD: 105 T: 31 QT: 354 QTc: 449 Interpretive Statements SINUS RHYTHM WITH OCCASIONAL VENTRICULAR PREMATURE COMPLEXES Compared to ECG 11/06/2021 15:24:56 Ventricular premature complex(es) now present First degree AV block no longer present Indeterminate axis no longer present Electronically Signed On 06-08-2023 15:54:16 PREMIUM REPRESENTATIVE by Duarte Kimble M.D. [id number]
--- NOTE | 2023-06-07 19:28 | XRR_ITS ---
PROCEDURE INFORMATION: Exam: XR Chest Exam date and time: 06/07/2023 7:53 PM Age: 72 years old Clinical indication: Chest pressure; Patient HX: Sudden onset mediastinal chest pain; HTN TECHNIQUE: Imaging protocol: Radiologic exam of the chest. Views: 1 view. COMPARISON: CR XR chest 1V portable [id number] 11/06/2021 9:08 AM FINDINGS: Lungs: Unremarkable. No consolidation. Pleural spaces: Unremarkable. No pleural effusion. No pneumothorax. Heart/Mediastinum: Unremarkable. No cardiomegaly. Bones/joints: Unremarkable. XR/XR chest 1V portable [id number] IMPRESSION: No acute findings.
--- NOTE | 2023-06-07 19:30 | ED_ITS ---
HPI - Chest Pain 2 General: Chief Complaint: Chest Pain Stated Complaint: chest pain Time Seen by Provider: 06/07/23 19:28 History of Present Illness: 72-year-old male presents to the emergen cy department with complaints of substernal chest pain that began yesterday in the evening. He states that it feels like it radiates to his bilateral jaws and the pain appears to be mostly pressure that he describes as a 4 out of 10. Patient does endorse associated nausea without vomiting. He denies shortness of breath or diaphoresis. He states he was told that he does have a blockage in one of his coronary arteries but is unable to recall which artery. Associated symptoms: Reports nausea Review of Systems 2 General: Reports: 10 or more systems reviewed and unremarkable except in HPI and below Card: Reports: chest pain GI: Reports: nausea PFSH ED 2 PFSH: Medical History Atherosclerosis of coronary artery GERD (gastroesophageal reflux disease) Hyperlipidemia Hypertension Surgical History History of appendectomy History of cataract surgery History of hip replacement History of knee replacement Family History Mother Cancer Father Cancer Social History Smoking and tobacco/nicotine status: former use of tobacco/nicotine Quit status (tobacco/nicotine): has quit using Alcohol intake: current Alcohol intake frequency: few times a week Alcohol type: beer Substance/Drug Use: never Adopted: No Caregiver/support person: No Lives independently: No Household members: spouse Marital status: Current occupational status: retired Sexually active: Yes Do you think of yourself as: Straight/Heterosexual Current gender identity: Male Physical Exam 2 Narrative: EXAM NARRATIVE: Constitutional: the patient appears well nourished and with normal development. Vital signs reviewed as documented. HENMT: Normocephalic, atraumatic. Extermal ears with normal appearance without drainage. Nose without drainage, normal appearance. Mucus membranes moist. Neck is supple, No jugular venous distension, trachea is midline, no appreciable carotid bruits. No lymphadenopathy. No meningeal signs. Flexion, extension and lateral rotation is without pain. Eyes: Pupils are equal, round, reactive to light and accommodation. No scleral icterus. Extra-ocular movement are intact. Thorax is symmetrical and with equal rise and fall with respirations. Resp: Lungs are clear to auscultation. No wheezes, rales, crackles or ronchi at present. Cardio: Regular rate and rhythm. Positive S1, S2. No appreciable murmurs, rubs or gallops. GI: Abdominal exam reveals normal bowel sounds to all quadrants. No organomegaly. No obvious palpable masses noted. No hepatomegally appreciated. Soft, nontender to palpation. Extremity: Extremities are non-edematous and both femoral and pedal pulses are 2+ and equal bilaterally. Moves all extremities well, sensation in all extremities. Neuro: Alert and oriented x4, person, place, time and situation. Cranial nerves II through XII are grossly intact, there is no focal neurological deficits that I can appreciate at present. Motor strength in the upper and lower extremities are equal and bilateral 5/5. Psych: Cooperative, calm, normal thought process, appropriate judgment. Skin: No lesions, rashes. No gross abnormalities noted. Back: Symmetrical, no obvious deformity, No CVA tenderness Course 2 Vital Signs: Vital signs: Vital Signs Temperature 97.6 F 06/07/23 19:14 Pulse Rate 75 06/07/23 20:00 Respiratory Rate 17 06/07/23 20:00 Blood Pressure 121/76 06/07/23 20:00 Pulse Oximetry 96 06/07/23 20:00 Oxygen Delivery Me thod Room Air 06/07/23 20:00 MDM - Chest Pain Medical Decision Making Physical exam completed and documented, I will obtain serial cardiac enzymes, serial twelve-lead EKGs, chest x-ray, CBC, CMP, urinalysis, B-type natriuretic peptide, PT/PTT/INR, and a chest x-ray. I provide cardiac dose aspirin if indicated and nitroglycerin administration if indicated. I have reviewed any pervious and pertinent medical records for assist in obtaining beneficial medical information to improved the care and treatment of the patient. I will reevaluate in consider hospitalist consultation and cardiology consultation. Medical Records I reviewed the patient's medical records. Lab Data I reviewed the patient's lab results. 06/07/23 19:38 06/07/23 19:38 Laboratory Results WBC 6.24 10^3/uL (3.29-11.43) 06/07/23 19:38 RBC 3.55 10^6/uL (3.85-5.65) L 06/07/23 19:38 Hgb 11.70 g/dL (11.27-16.99) 06/07/23 19:38 Hct 34.3 % (37-53) L 06/07/23 19:38 MCV 96.6 fl (82-101) 06/07/23 19:38 MCH 33.0 pg (27-33) 06/07/23 19:38 MCHC 34.1 g/dL (30-55) 06/07/23 19:38 RDW 12.4 % (12.1-15.1) 06/07/23 19:38 Plt Count 298 10^3/cmm (157-399) 06/07/23 19:38 MPV 9.6 fL (7.4-10.4) 06/07/23 19:38 Neut % (Auto) 56.1 % 06/07/23 19:38 Lymph % (Auto) 29.3 % 06/07/23 19:38 [place] % (Auto) 11.2 % 06/07/23 19:38 Eos % (Auto) 2.6 % 06/07/23 19:38 Baso % (Auto) 0.6 % 06/07/23 19:38 Neut # (Auto) 3.50 10^3/uL (1.8-7.7) 06/07/23 19:38 Lymph # (Auto) 1.8 10^3/uL (0.8-4.8) 06/07/23 19:38 [place] # (Auto) 0.7 10^3/uL (0.2-0.9) 06/07/23 19:38 Eos # (Auto) 0.2 10^3/uL (0.0-0.8) 06/07/23 19:38 Baso # (Auto) 0.0 10^3/uL (0.0-0.1) 06/07/23 19:38 Nucleated RBC % (auto) 0 % 06/07/23 19:38 Nucleated RBCs # 0.0 /100WBC 06/07/23 19:38 PT 12.80 SECONDS (12.1-14.9) 06/07/23 19:38 INR 0.94 (0.8-1.2) 06/07/23 19:38 APTT 33.2 SECONDS (23.9-36.7) 06/07/23 19:38 Sodium 129 mmol/L (136-145) L 06/07/23 19:38 Potassium 4.3 mmol/L (3.5-5.1) 06/07/23 19:38 Chloride 93 mmol/L (98-107) L 06/07/23 19:38 Carbon Dioxide 22 mmol/L (22-29) 06/07/23 19:38 Anion Gap 18.3 (5-19) 06/07/23 19:38 BUN 17 mg/dL (8-23) 06/07/23 19:38 Creatinine 1.2 mg/dL (0.7-1.2) 06/07/23 19:38 GFR Calculation Not Reportable 06/07/23 19:38 Glucose 100 mg/dL (65-115) 06/07/23 19:38 Calculated Osmolality 270 mOsm/kg (285-295) L 06/07/23 19:38 Calcium 9.8 mg/dL (8.5-10.5) 06/07/23 19:38 Total Bilirubin 0.4 mg/dL (0.15-1.2) 06/07/23 19:38 AST 15 U/L (0-40) 06/07/23 19:38 ALT 12 U/L (0-41) 06/07/23 19:38 Alkaline Phosphatase 65 U/L (40-130) 06/07/23 19:38 Troponin T Baseline 10 ng/L (0-15) 06/07/23 19:38 NT-Pro-B Natriuret Pep 212 pg/mL (0-125) H 06/07/23 19:38 Total Protein 7.4 g/dL (6.6-8.7) 06/07/23 19:38 Albumin 4.9 g/dL (3.5-5.2) 06/07/23 19:38 Globulin 2.5 g/dL (1.3-4.6) 06/07/23 19:38 All radiology interpretation(s) finalized by discharge EKG Data EKG 1: Interpretation: Twelve-lead EKG obtained at 7 reviewed at 1920 demonstrates sinus rhythm with a first-degree AV block with UT interval of 202, ventricular rate of 96 bpm, QRS duration 105, QT 354, QTc [address] elevation or depression to demonstrate acute ischemia at present. Discharge Plan Discharge Condition: Stable Prescriptions: No Action multivitamin Tablet 1 tab PO QAM aspirin [Wai Low Dose Aspirin] 81 mg tablet,delayed release (DR/EC) 81 mg PO QAM Dupixent Pen 300 mg/2 mL pen injector 300 mg SUBCUT DIRECTED Rx Instructions: every 2 weeks montelukast [Singulair] 10 mg tablet 10 mg PO DAILY Qty: 30 3RF methotrexate 2.5 mg/mL solution See Rx Instructions PO .weekly Rx Instructions: 2 pills orally WEEKLY; miconazole nitrate 2 % cream 1 applic topical DAILY [id number]/DIPHENHYDRAMINE 25MG tablet 1 tab PO BEDTIME ibuprofen 400 mg tablet 400 mg PO Q12H PRN (Reason: Pain) metoprolol succinate 25 mg tablet extended release 24 hr 12.5 mg PO DAILY Qty: 90 3RF omeprazole 40 mg capsule,delayed release(DR/EC) 40 mg PO DAILY Qty: 90 3RF prednisone 5 mg tablet 5 mg PO DAILY Qty: 30 1RF lisinopril 40 mg tablet 40 mg PO QAM Qty: 90 1RF amlodipine 10 mg tablet 10 mg PO DAILY Qty: 90 3RF atorvastatin 20 mg tablet 20 mg PO QD@1900 Qty: 90 3RF cetirizine [Zyrtec] 10 mg Tablet 10 mg PO DAILY PRN (Reason: Allergy Symptoms) iron bis glycinat-vit C-FA-B12 28 mg iron-60mg -400 mcg-8 mcg Capsule 1 cap PO QPM Vitamin B-12 1 tab PO QPM Referrals: Varun Leach, AURY [Primary Care Provider] - Coding Level of Care Code ED Veterinarian for Lyndsey Salguero
[2023-06-07] MEDS: aspirin 81 mg Chew Tablet 324 MG PO (19:44)
[2023-06-07] MEDS: nitroglycerin 1 gm/inch oint Pkt 1 INCH TOPICAL (19:46)
[2023-06-07 19:48] LABS: Basophils % 0.6 %; Eosinophils # 0.2 10^3/uL (0.0-0.8); Eosinophils % 2.6 %; Hematocrit 34.3 % (37-53); Lymphocytes # 1.8 10^3/uL (0.8-4.8); Lymphocytes % 29.3 %; Mean Corpuscular HGB Conc 34.1 g/dL (30-55); Mean Corpuscular Volume 96.6 fl (82-101); Mean Platelet Volume 9.6 fL (7.4-10.4); Monocytes # 0.7 10^3/uL (0.2-0.9); Monocytes % 11.2 %; Neutrophils % 56.1 %; Nucleated Red Blood Cells % 0 %; Platelet Count 298 10^3/cmm (157-399); Red Blood Count 3.55 10^6/uL (3.85-5.65); Red Cell Distribution Width 12.4 % (12.1-15.1); White Blood Count 6.24 10^3/uL (3.29-11.43)
[2023-06-07 20:01] LABS: INR 0.94 (0.8-1.2)
[2023-06-07 20:02] LABS: Partial Thromboplastin Time 33.2 SECONDS (23.9-36.7)
[2023-06-07 20:14] LABS: Troponin(5th) Baseline 10 ng/L (0-15)
[2023-06-07 20:17] LABS: Alanine Aminotransferase 12 U/L (0-41); Albumin Level 4.9 g/dL (3.5-5.2); Alkaline Phosphatase 65 U/L (40-130); Anion Gap 18.3 (5-19); Aspartate Amino Transferase 15 U/L (0-40); Blood Urea Nitrogen 17 mg/dL (8-23); Calcium 9.8 mg/dL (8.5-10.5); Carbon Dioxide 22 mmol/L (22-29); Chloride 93 mmol/L (98-107); Globulin 2.5 g/dL (1.3-4.6); Glucose 100 mg/dL (65-115); Osmolality Calculated 270 mOsm/kg (285-295); Potassium 4.3 mmol/L (3.5-5.1); Sodium 129 mmol/L (136-145); Total Bilirubin 0.4 mg/dL (0.15-1.2); Total Protein 7.4 g/dL (6.6-8.7)
[2023-06-07 20:20] LABS: NT Pro B Type Natriuretic Pept 212 pg/mL (0-125)
--- NOTE | 2023-06-07 20:47 | ED_ITS ---
Documented by User: Issa Rodriguez MD 06/08/23 18:00 HPI - Chest Pain 2 General: Chief Complaint: Chest Pain Stated Complaint: chest pain Time Seen by Provider: 06/07/23 19:28 History of Present Illness: 72-year-old female presents emergency de partment with complaints of substernal chest pain that radiates to his left and right jaw. He states that the pain started last night and is continued throughout the day today. He states his pain currently is a 4 out of 10. He states that he does have associated nausea. He describes the pain as a pressure type pain. Associated symptoms: Reports nausea Review of Systems 2 General: Reports: 10 or more systems reviewed and unremarkable except in HPI and below Card: Reports: chest pain GI: Reports: nausea PFSH ED 2 PFSH: Medical History Atherosclerosis of coronary artery GERD (gastroesophageal reflux disease) Hyperlipidemia Hypertension Surgical History History of appendectomy History of cataract surgery History of hip replacement History of knee replacement Family History Mother Cancer Father Cancer Social History Smoking and tobacco/nicotine status: former use of tobacco/nicotine Quit status (tobacco/nicotine): has quit using Alcohol intake: current Alcohol intake frequency: few times a week Alcohol type: beer Substance/Drug Use: never Adopted: No Caregiver/support person: No Lives independently: No Household members: spouse Marital status: Current occupational status: retired Sexually active: Yes Do you think of yourself as: Straight/Heterosexual Current gender identity: Male Physical Exam 2 Narrative: EXAM NARRATIVE: Constitutional: the patient appears well nourished and with normal development. Vital signs reviewed as documented. HENMT: Normocephalic, atraumatic. Extermal ears with normal appearance without drainage. Nose without drainage, normal appearance. Mucus membranes moist. Neck is supple, No jugular venous distension, trachea is midline, no appreciable carotid bruits. No lymphadenopathy. No meningeal signs. Flexion, extension and lateral rotation is without pain. Eyes: Pupils are equal, round, reactive to light and accommodation. No scleral icterus. Extra-ocular movement are intact. Thorax is symmetrical and with equal rise and fall with respirations. Resp: Lungs are clear to auscultation. No wheezes, rales, crackles or ronchi at present. Cardio: Regular rate and rhythm. Positive S1, S2. No appreciable murmurs, rubs or gallops. GI: Abdominal exam reveals normal bowel sounds to all quadrants. No organomegaly. No obvious palpable masses noted. No hepatomegally appreciated. Soft, nontender to palpation. Extremity: Extremities are non-edematous and both femoral and pedal pulses are 2+ and equal bilaterally. Moves all extremities well, sensation in all extremities. Neuro: Alert and oriented x4, person, place, time and situation. Cranial nerves II through XII are grossly intact, there is no focal neurological deficits that I can appreciate at present. Motor strength in the upper and lower extremities are equal and bilateral 5/5. Psych: Cooperative, calm, normal thought process, appropriate judgment. Skin: No lesions, rashes. No gross abnormalities noted. Back: Symmetrical, no obvious deformity, No CVA tenderness Course 2 ED course: End of shift signout, patient was signed out to Dr. Mcdonnell Vital Signs: Vital signs: Vital Signs Temperature 97.6 F 06/07/23 19:14 Pulse Rate 78 06/07/23 23:03 Respiratory Rate 18 06/07/23 23:03 Blood Pressure 123/76 06/07/23 23:03 Pulse Oximetry 94 06/07/23 23:03 Oxygen Delivery Me thod Room Air 06/07/23 22:38 MDM - Chest Pain Medical Decision Making Physical exam completed and documented, I will obtain serial cardiac enzymes, serial twelve-lead EKGs, chest x-ray, CBC, CMP, urinalysis, B-type natriuretic peptide, PT/PTT/INR, and a chest x-ray. I provide cardiac dose aspirin and Nitropaste. I have reviewed any pervious and pertinent medical records for assist in obtaining beneficial medical information to improved the care and treatment of the patient. Medical Records I reviewed the patient's medical records. Lab Data I reviewed the patient's lab results. 06/07/23 19:38 06/07/23 19:38 Radiology Impressions Chest X-Ray 06/07/23 19:28 IMPRESSION: No acute findings. Laboratory Results WBC 6.24 10^3/uL (3.29-11.43) 06/07/23 19:38 RBC 3.55 10^6/uL (3.85-5.65) L 06/07/23 19:38 Hgb 11.70 g/dL (11.27-16.99) 06/07/23 19:38 Hct 34.3 % (37-53) L 06/07/23 19:38 MCV 96.6 fl (82-101) 06/07/23 19:38 MCH 33.0 pg (27-33) 06/07/23 19:38 MCHC 34.1 g/dL (30-55) 06/07/23 19:38 RDW 12.4 % (12.1-15.1) 06/07/23 19:38 Plt Count 298 10^3/cmm (157-399) 06/07/23 19:38 MPV 9.6 fL (7.4-10.4) 06/07/23 19:38 Neut % (Auto) 56.1 % 06/07/23 19:38 Lymph % (Auto) 29.3 % 06/07/23 19:38 [place] % (Auto) 11.2 % 06/07/23 19:38 Eos % (Auto) 2.6 % 06/07/23 19:38 Baso % (Auto) 0.6 % 06/07/23 19:38 Neut # (Auto) 3.50 10^3/uL (1.8-7.7) 06/07/23 19:38 Lymph # (Auto) 1.8 10^3/uL (0.8-4.8) 06/07/23 19:38 [place] # (Auto) 0.7 10^3/uL (0.2-0.9) 06/07/23 19:38 Eos # (Auto) 0.2 10^3/uL (0.0-0.8) 06/07/23 19:38 Baso # (Auto) 0.0 10^3/uL (0.0-0.1) 06/07/23 19:38 Nucleated RBC % (auto) 0 % 06/07/23 19:38 Nucleated RBCs # 0.0 /100WBC 06/07/23 19:38 PT 12.80 SECONDS (12.1-14.9) 06/07/23 19:38 INR 0.94 (0.8-1.2) 06/07/23 19:38 APTT 33.2 SECONDS (23.9-36.7) 06/07/23 19:38 Sodium 129 mmol/L (136-145) L 06/07/23 19:38 Potassium 4.3 mmol/L (3.5-5.1) 06/07/23 19:38 Chloride 93 mmol/L (98-107) L 06/07/23 19:38 Carbon Dioxide 22 mmol/L (22-29) 06/07/23 19:38 Anion Gap 18.3 (5-19) 06/07/23 19:38 BUN 17 mg/dL (8-23) 06/07/23 19:38 Creatinine 1.2 mg/dL (0.7-1.2) 06/07/23 19:38 GFR Calculation Not Reportable 06/07/23 19:38 Glucose 100 mg/dL (65-115) 06/07/23 19:38 Calculated Osmolality 270 mOsm/kg (285-295) L 06/07/23 19:38 Calcium 9.8 mg/dL (8.5-10.5) 06/07/23 19:38 Total Bilirubin 0.4 mg/dL (0.15-1.2) 06/07/23 19:38 AST 15 U/L (0-40) 06/07/23 19:38 ALT 12 U/L (0-41) 06/07/23 19:38 Alkaline Phosphatase 65 U/L (40-130) 06/07/23 19:38 Troponin T Baseline 10 ng/L (0-15) 06/07/23 19:38 Troponin T 120 Minute 10.19 ng/L (0-15) 06/07/23 21:20 Delta Troponin T 0.19 ABS# (0-10) 06/07/23 21:20 NT-Pro-B Natriuret Pep 212 pg/mL (0-125) H 06/07/23 19:38 Total Protein 7.4 g/dL (6.6-8.7) 06/07/23 19:38 Albumin 4.9 g/dL (3.5-5.2) 06/07/23 19:38 Globulin 2.5 g/dL (1.3-4.6) 06/07/23 19:38 All radiology interpretation(s) finalized by discharge EKG Data EKG 1: Interpretation: Twelve-lead EKG obtained at 1917 and reviewed at 1920 demonstrates first-degree AV block with sinus rhythm, ventricular rate 96 MD interval 202 QRS duration 105 QT 354 QTc [address] elevation or depression to demonstrate acute ischemia or infarction at present. Discharge Plan Discharge Patient Disposition: Home Clinical Impression: Acute hyponatremia, Atypical chest pain Condition: Stable Prescriptions: No Action multivitamin Tablet 1 tab PO QAM aspirin [Wai Low Dose Aspirin] 81 mg tablet,delayed release (DR/EC) 81 mg PO QAM Dupixent Pen 300 mg/2 mL pen injector 300 mg SUBCUT DIRECTED Rx Instructions: every 2 weeks montelukast [Singulair] 10 mg tablet 10 mg PO DAILY Qty: 30 3RF methotrexate 2.5 mg/mL solution See Rx Instructions PO .weekly Rx Instructions: 2 pills orally WEEKLY; miconazole nitrate 2 % cream 1 applic topical DAILY [id number]/DIPHENHYDRAMINE 25MG tablet 1 tab PO BEDTIME ibuprofen 400 mg tablet 400 mg PO Q12H PRN (Reason: Pain) metoprolol succinate 25 mg tablet extended release 24 hr 12.5 mg PO DAILY Qty: 90 3RF omeprazole 40 mg capsule,delayed release(DR/EC) 40 mg PO DAILY Qty: 90 3RF prednisone 5 mg tablet 5 mg PO DAILY Qty: 30 1RF lisinopril 40 mg tablet 40 mg PO QAM Qty: 90 1RF amlodipine 10 mg tablet 10 mg PO DAILY Qty: 90 3RF atorvastatin 20 mg tablet 20 mg PO QD@1900 Qty: 90 3RF cetirizine [Zyrtec] 10 mg Tablet 10 mg PO DAILY PRN (Reason: Allergy Symptoms) iron bis glycinat-vit C-FA-B12 28 mg iron-60mg -400 mcg-8 mcg Capsule 1 cap PO QPM Vitamin B-12 1 tab PO QPM Discharge Orders: Discharge ED (Routine); Ordered 06/07/23 Ordered By: Austyn Mcdonnell Referrals: Varun Leach, [facility]TER [Primary Care Provider] - 1-3 days Patient Instructions: Chest Pain (ED), Opioid Safety, Pain Management Activity Restrictions/Additional Instructions: Return for worsening pain, shortness of breath, fever, other concerning symptoms. See your doctor this week. Follow-up with cardiology as scheduled. 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 Documented by User: Austyn Mcdonnell, 06/07/23 23:43 HPI - Chest Pain 2 General: Chief Complaint: Chest Pain Stated Complaint: chest pain Time Seen by Provider: 06/07/23 19:28 PFSH ED 2 PFSH: Medical History Atherosclerosis of coronary artery GERD (gastroesophageal reflux disease) Hyperlipidemia Hypertension Surgical History History of appendectomy History of cataract surgery History of hip replacement History of knee replacement Family History Mother Cancer Father Cancer Social History Smoking and tobacco/nicotine status: former use of tobacco/nicotine Quit status (tobacco/nicotine): has quit using Alcohol intake: current Alcohol intake frequency: few times a week Alcohol type: beer Substance/Drug Use: never Adopted: No Caregiver/support person: No Lives independently: No Household members: spouse Marital status: Current occupational status: retired Sexually active: Yes Do you think of yourself as: Straight/Heterosexual Current gender identity: Male Course 2 Vital Signs: Vital signs: Vital Signs Temperature 97.6 F 06/07/23 19:14 Pulse Rate 78 06/07/23 23:03 Respiratory Rate 18 06/07/23 23:03 Blood Pressure 123/76 06/07/23 23:03 Pulse Oximetry 94 06/07/23 23:03 Oxygen Delivery Me thod Room Air 06/07/23 22:38 MDM - Chest Pain Medical Decision Making Physical exam completed and documented, I will obtain serial cardiac enzymes, serial twelve-lead EKGs, chest x-ray, CBC, CMP, urinalysis, B-type natriuretic peptide, PT/PTT/INR, and a chest x-ray. I provide cardiac dose aspirin and Nitropaste. I have reviewed any pervious and pertinent medical records for assist in obtaining beneficial medical information to improved the care and treatment of the patient. Second troponin remained normal. Chest x-ray is negative. Sodium is 129, this patient's sodium has been significantly low in the past. Other laboratory not remarkable. He will be allowed discharge home to follow-up as an outpatient. To return for worsening or new symptoms. Lab Data 06/07/23 19:38 06/07/23 19:38 Radiology Impressions Chest X-Ray 06/07/23 19:28 IMPRESSION: No acute findings. Laboratory Results WBC 6.24 10^3/uL (3.29-11.43) 06/07/23 19:38 RBC 3.55 10^6/uL (3.85-5.65) L 06/07/23 19:38 Hgb 11.70 g/dL (11.27-16.99) 06/07/23 19:38 Hct 34.3 % (37-53) L 06/07/23 19:38 MCV 96.6 fl (82-101) 06/07/23 19:38 MCH 33.0 pg (27-33) 06/07/23 19:38 MCHC 34.1 g/dL (30-55) 06/07/23 19:38 RDW 12.4 % (12.1-15.1) 06/07/23 19:38 Plt Count 298 10^3/cmm (157-399) 06/07/23 19:38 MPV 9.6 fL (7.4-10.4) 06/07/23 19:38 Neut % (Auto) 56.1 % 06/07/23 19:38 Lymph % (Auto) 29.3 % 06/07/23 19:38 [place] % (Auto) 11.2 % 06/07/23 19:38 Eos % (Auto) 2.6 % 06/07/23 19:38 Baso % (Auto) 0.6 % 06/07/23 19:38 Neut # (Auto) 3.50 10^3/uL (1.8-7.7) 06/07/23 19:38 Lymph # (Auto) 1.8 10^3/uL (0.8-4.8) 06/07/23 19:38 [place] # (Auto) 0.7 10^3/uL (0.2-0.9) 06/07/23 19:38 Eos # (Auto) 0.2 10^3/uL (0.0-0.8) 06/07/23 19:38 Baso # (Auto) 0.0 10^3/uL (0.0-0.1) 06/07/23 19:38 Nucleated RBC % (auto) 0 % 06/07/23 19:38 Nucleated RBCs # 0.0 /100WBC 06/07/23 19:38 PT 12.80 SECONDS (12.1-14.9) 06/07/23 19:38 INR 0.94 (0.8-1.2) 06/07/23 19:38 APTT 33.2 SECONDS (23.9-36.7) 06/07/23 19:38 Sodium 129 mmol/L (136-145) L 06/07/23 19:38 Potassium 4.3 mmol/L (3.5-5.1) 06/07/23 19:38 Chloride 93 mmol/L (98-107) L 06/07/23 19:38 Carbon Dioxide 22 mmol/L (22-29) 06/07/23 19:38 Anion Gap 18.3 (5-19) 06/07/23 19:38 BUN 17 mg/dL (8-23) 06/07/23 19:38 Creatinine 1.2 mg/dL (0.7-1.2) 06/07/23 19:38 GFR Calculation Not Reportable 06/07/23 19:38 Glucose 100 mg/dL (65-115) 06/07/23 19:38 Calculated Osmolality 270 mOsm/kg (285-295) L 06/07/23 19:38 Calcium 9.8 mg/dL (8.5-10.5) 06/07/23 19:38 Total Bilirubin 0.4 mg/dL (0.15-1.2) 06/07/23 19:38 AST 15 U/L (0-40) 06/07/23 19:38 ALT 12 U/L (0-41) 12/10/23 19:38 Alkaline Phosphatase 65 U/L (40-130) 06/07/23 19:38 Troponin T Baseline 10 ng/L (0-15) 06/07/23 19:38 Troponin T 120 Minute 10.19 ng/L (0-15) 06/07/23 21:20 Delta Troponin T 0.19 ABS# (0-10) 06/07/23 21:20 NT-Pro-B Natriuret Pep 212 pg/mL (0-125) H 06/07/23 19:38 Total Protein 7.4 g/dL (6.6-8.7) 06/07/23 19:38 Albumin 4.9 g/dL (3.5-5.2) 06/07/23 19:38 Globulin 2.5 g/dL (1.3-4.6) 06/07/23 19:38 Discharge Plan Discharge Patient Disposition: Home Clinical Impression: Acute hyponatremia, Atypical chest pain Condition: Stable Prescriptions: No Action multivitamin Tablet 1 tab PO QAM aspirin [Wai Low Dose Aspirin] 81 mg tablet,delayed release (DR/EC) 81 mg PO QAM Dupixent Pen 300 mg/2 mL pen injector 300 mg SUBCUT DIRECTED Rx Instructions: every 2 weeks montelukast [Singulair] 10 mg tablet 10 mg PO DAILY Qty: 30 3RF methotrexate 2.5 mg/mL solution See Rx Instructions PO .weekly Rx Instructions: 2 pills orally WEEKLY; miconazole nitrate 2 % cream 1 applic topical DAILY [id number]/DIPHENHYDRAMINE 25MG tablet 1 tab PO BEDTIME ibuprofen 400 mg tablet 400 mg PO Q12H PRN (Reason: Pain) metoprolol succinate 25 mg tablet extended release 24 hr 12.5 mg PO DAILY Qty: 90 3RF omeprazole 40 mg capsule,delayed release(DR/EC) 40 mg PO DAILY Qty: 90 3RF prednisone 5 mg tablet 5 mg PO DAILY Qty: 30 1RF lisinopril 40 mg tablet 40 mg PO QAM Qty: 90 1RF amlodipine 10 mg tablet 10 mg PO DAILY Qty: 90 3RF atorvastatin 20 mg tablet 20 mg PO QD@1900 Qty: 90 3RF cetirizine [Zyrtec] 10 mg Tablet 10 mg PO DAILY PRN (Reason: Allergy Symptoms) iron bis glycinat-vit C-FA-B12 28 mg iron-60mg -400 mcg-8 mcg Capsule 1 cap PO QPM Vitamin B-12 1 tab PO QPM Discharge Orders: Discharge ED (Routine); Ordered 06/07/23 Ordered By: Austyn Mcdonnell Referrals: Varun Leach FNP [Primary Care Provider] - 1-3 days Patient Instructions: Chest Pain (ED), Opioid Safety, Pain Management Activity Restrictions/Additional Instructions: Return for worsening pain, shortness of breath, fever, other concerning symptoms. See your doctor this week. Follow-up with cardiology as scheduled. 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
--- NOTE | 2023-06-07 21:47 | ECG_ITS ---
[facility] Test Date: 2023-06-07 Pat Name: Todd Mg Department: Room: Gender: Male Project Development Manager: : 1950 Requested By: Issa Rodriguez Order Number: [id number] Cristopher MD: Duarte Kimble M.D. Measurements Intervals Bryant Rate: 106 P: 0 OK: 0 QRS: 42 QRSD: 101 T: 38 QT: 359 QTc: 477 Interpretive Statements ATRIAL FIBRILLATION WITH RAPID VENTRICULAR RESPONSE POSSIBLE RIGHT VENTRICULAR CONDUCTION DELAY [RSR (QR) IN V1/V2] MODERATE ST DEPRESSION [0.05+ mV ST DEPRESSION] Compared to ECG 11/06/2021 15:24:56 ST (T wave) deviation now present Sinus rhythm no longer present First degree AV block no longer present Indeterminate axis no longer present Electronically Signed On 06-08-2023 15:58:52 POND SAWYER by Duarte Kimble M.D. [email or web address]
[2023-06-07 22:02] LABS: Troponin 5 2HR 10.19 ng/L (0-15); Troponin 5 2HR Delta 0.19 ABS# (0-10)
[2023-06-07] MEDS: ondansetron 2 mg/ML SDV 2 mL 4 MG IVP (22:36)
[2023-06-07] MEDS: morphine 4 mg/mL SDV 1 mL IVP (22:36)
== END 2023-06-07 23:04 | disposition home or self-care (01) ==
PROVIDERS: Emergency Provider Internal Medicine; PCP Registered Nurse
DX: R07.89 Other chest pain (principal); E87.1 Hypo-osmolality and hyponatremia; Z79.82 Long term (current) use of aspirin; Z87.891 Personal history of nicotine dependence; I25.10 Atherosclerotic heart disease of native coronary artery without angina pectoris; E78.5 Hyperlipidemia, unspecified; I10 Essential (primary) hypertension
CPT/HCPCS: 36415; 71045; 80053; 83880; 84484; 85025; 85610; 85730; 93005; 96374; 96375; 99285; J2270; J2405

== ENCOUNTER → 2023-07-16 12:13 | Outpatient (BNVA) | payer MEDICARE, SELFPAY | PROVIDERS: PCP Registered Nurse; Visit Provider Nurse Practitioner Family | DX: I48.0 Paroxysmal atrial fibrillation (principal); I25.10 Atherosclerotic heart disease of native coronary artery without angina pectoris; I10 Essential (primary) hypertension; I45.19 Other right bundle-branch block; Z87.891 Personal history of nicotine dependence | CPT/HCPCS: 93005; 99214 ==

== ENCOUNTER → 2023-08-12 10:50 | Outpatient (BNVA) | payer OTHER, SELFPAY | PROVIDERS: PCP Registered Nurse; Visit Provider Nurse Practitioner Family | DX: I10 Essential (primary) hypertension (principal); I25.118 Atherosclerotic heart disease of native coronary artery with other forms of angina pectoris; I48.0 Paroxysmal atrial fibrillation; Z87.891 Personal history of nicotine dependence; Z79.01 Long term (current) use of anticoagulants | CPT/HCPCS: 99214 ==

== ENCOUNTER → 2024-02-10 14:14 | Outpatient (BNVA) | payer OTHER, SELFPAY | PROVIDERS: PCP Registered Nurse; Visit Provider Internal Medicine | DX: I10 Essential (primary) hypertension (principal); E78.5 Hyperlipidemia, unspecified; I25.10 Atherosclerotic heart disease of native coronary artery without angina pectoris; Z87.891 Personal history of nicotine dependence | CPT/HCPCS: 99214 ==

== ENCOUNTER → 2024-03-31 11:02 | Outpatient (BNVA) | payer MEDICARE, SELFPAY | PROVIDERS: PCP Registered Nurse; Visit Provider Nurse Practitioner Family | DX: I10 Essential (primary) hypertension (principal); I25.10 Atherosclerotic heart disease of native coronary artery without angina pectoris; I25.118 Atherosclerotic heart disease of native coronary artery with other forms of angina pectoris | CPT/HCPCS: 80053; 80061; 85025 ==

== ENCOUNTER → 2024-07-07 10:31 | Outpatient (BNVA) | payer MEDICARE, SELFPAY | PROVIDERS: PCP Registered Nurse; Visit Provider Nurse Practitioner Family | DX: D64.9 Anemia, unspecified (principal); R42 Dizziness and giddiness | CPT/HCPCS: 82607; 82746; 85025 ==

== ENCOUNTER → 2024-07-14 14:26 | Outpatient (BNVA) | payer MEDICARE, SELFPAY | PROVIDERS: PCP Registered Nurse; Visit Provider Nurse Practitioner Family | DX: D64.9 Anemia, unspecified (principal); I48.0 Paroxysmal atrial fibrillation | CPT/HCPCS: 82728; 83550; 84466 ==

== ENCOUNTER 2024-09-05 15:57 | Oncology outpatient (recurring) (ONCR) | payer MEDICARE, SELFPAY | END 2024-09-26 23:59 | disposition home or self-care (01) | PROVIDERS: PCP Registered Nurse; Visit Provider Internal Medicine Medical Oncology | DX: Z53.9 Procedure and treatment not carried out, unspecified reason (principal); D64.9 Anemia, unspecified; E87.1 Hypo-osmolality and hyponatremia; Z87.891 Personal history of nicotine dependence; F10.90 Alcohol use, unspecified, uncomplicated | CPT/HCPCS: 99205 ==

== ENCOUNTER → 2024-11-09 12:51 | Outpatient (BNVA) | payer OTHER, SELFPAY | PROVIDERS: PCP Registered Nurse; Visit Provider Internal Medicine | DX: I10 Essential (primary) hypertension (principal); E78.5 Hyperlipidemia, unspecified; I25.10 Atherosclerotic heart disease of native coronary artery without angina pectoris; Z87.891 Personal history of nicotine dependence | CPT/HCPCS: 99213 ==

== ENCOUNTER → 2025-04-05 09:50 | Outpatient (BNVA) | payer MEDICARE, SELFPAY | PROVIDERS: PCP Nurse Practitioner Family; Visit Provider Nurse Practitioner Family | DX: Z00.00 Encounter for general adult medical examination without abnormal findings (principal); I10 Essential (primary) hypertension; I25.10 Atherosclerotic heart disease of native coronary artery without angina pectoris; E78.5 Hyperlipidemia, unspecified; H69.93 Unspecified Eustachian tube disorder, bilateral; D64.9 Anemia, unspecified; I25.118 Atherosclerotic heart disease of native coronary artery with other forms of angina pectoris | CPT/HCPCS: 80053; 80061; 83735; 85025; G0103 ==